=== PATIENT | female | born 1980 | race Caucasian/White ===

== ENCOUNTER 2020-04-24 21:14 | Emergency (ER) | payer MEDICAID, SELFPAY ==
[2020-04-24 21:15] VITALS: BP 96/65; PULSE 64; RESP 19; TEMP 36; O2SAT 98; BMI 26.4
[2020-04-24 21:38] VITALS: BP 95/59; PULSE 54; RESP 19; O2SAT 98
--- NOTE | 2020-04-24 22:06 | CT_ITS ---
STUDY: CT CERVICAL SPINE WITHOUT CONTRAST REASON FOR EXAM: Female, 39 years old. TRAUMA AFTER SEIZURE. hit head against ground RADIATION DOSAGE (If Supplied By Facility): CTDIvol = ( 14.42 ) mGy, DLP = ( 287.14 ) mGycm TECHNIQUE: High resolution transaxial imaging was performed without contrast material. Sagittal and coronal images were reconstructed. Individualized dose optimization techniques were used for this CT. COMPARISON: None FINDINGS: Normal craniovertebral junction. Normal anterior atlantoaxial articulation. Normal odontoid process. Normal cervical lordosis. Normal vertebral bodies and posterior osseous elements. C2-3: Normal endplates. Normal disc height and morphology. Normal central canal and intervertebral neuroforamina. C3-4: Normal endplates. Normal disc height and morphology. Normal central canal and intervertebral neuroforamina. C4-5: Normal endplates. Normal disc height and morphology. Normal central canal and intervertebral neuroforamina. C5-6: Normal endplates. Normal disc height and morphology. Normal central canal and intervertebral neuroforamina. C6-7: Normal endplates. Normal disc height and morphology. Normal central canal and intervertebral neuroforamina. C7-T1: Normal endplates. Normal disc height and morphology. Normal central canal and intervertebral neuroforamina. Normal visualized soft tissue structures. CT/Spine Cervical without Contras IMPRESSION: Normal unenhanced CT examination of the cervical spine. Electronically Signed: Rc Sheppard MD at 22:32 EDT , Service support ,
--- NOTE | 2020-04-24 22:06 | CT_ITS ---
STUDY: CT BRAIN WITHOUT CONTRAST REASON FOR EXAM: Female, 39 years old. TRAUMA AFTER SEIZURE. hit head against ground RADIATION DOSAGE (If Supplied By Facility): CTDIvol = ( 44.99 ) mGy, DLP = ( 796.11 ) mGycm TECHNIQUE: Transaxial CT imaging of the brain was performed without administration of intravenous contrast material. Individualized dose optimization techniques were used for this CT. COMPARISON: Prior study of 05/24/2013 FINDINGS: Normal soft tissue structures. Normal calvarium. Normal size ventricles and extra-axial spaces for the patient''s age. Normal white matter tracts of the cerebral hemispheres. Normal basal ganglia and thalami. Normal brainstem. Normal cerebellum. There is no intracranial hemorrhage. There are no findings of an acute ischemic infarction. Normal visualized paranasal sinuses. CT/Brain/Head without Contrast IMPRESSION: Normal unenhanced CT scan of the brain. Electronically Signed: Rc Sheppard MD at 22:28 EDT , Service support ,
[2020-04-24 22:19] LABS: Absolute Lymphocyte Count 2.41 X10^3/uL (0.83-4.51); Absolute Neutrophil Count 3.8 X10^3/uL (2.0-7.7); Basophil# 0.07 X10^3/uL; Eosinophil# 0.33 X10^3/uL; Eosinophils% 4.6 % (0-5); Hematocrit 38.3 % (37-47); Hemoglobin 12.5 g/dL (12.0-15.0); Lymphocyte # 2.41 X10^3/ul (4.0); Lymphocyte % 33.7 % (19-41); Mean Corp Hgb Conc 32.6 g/dL (32-36); Mean Platelet Vol. 10.3 fl (6.2-12.0); Monocyte# 0.56 X10^3/uL; Monocyte% 7.8 % (0-10); NRBC Flagged by Analyzer 0 % (0-5); Neutrophil # 3.76 X10^3/uL (2.7-7.7); Neutrophil % 52.6 % (47-70); Platelet Count 228 K/mm3 (150-450); RBC Distribution Width CV 14.7 % (11.6-14.6); RBC Distribution Width SD 52.9 fl (35.1-43.9); Red Blood Count 3.91 M/mm3 (4.2-5.4); White Blood Count 7.2 K/mm3 (4.4-11.0)
[2020-04-24 22:22] LABS: Anion Gap 1 (5-15); BUN 10 mg/dL (7-18); BUN/Creat Ratio 12.4 RATIO (10-20); Calcium,Total 8.1 mg/dL (8.5-10.1); Chloride 120 mmol/L (98-107); EST Glomerular Filtration Rate 84 mL/min (>60); Est Glom Filt Rate - Afr Amer 101 mL/min (>60); Glucose 87 mg/dL (74-106); Potassium 3.8 mmol/L (3.5-5.1); Sodium Level 136 mmol/L (136-145)
--- NOTE | 2020-04-24 23:13 | ED.DCSUM_ITS ---
- ER Visit Summary Date of Service: 04/24/20 Chief Complaint: Seizure History of Present Illness: The patient is a 39 F with a history of seizure disorder. She takes Vimpat and Topamax. He has been compliant with her medications. No change in the dosages. No change in her sleep or diet. No drug use. She had a seizure episode this evening and was brought to the ED. There was a recurrent episode for EMS. Currently seizure activity has stopped. She has some head and neck pain but no other complaints. Physical Examination: Afebrile and vital signs unremarkable. Blood pressure 95/59 and heart rate 54. She said this is fairly normal for her. Head and neck atraumatic. Heart regular. Lungs clear. Skin appears normal. Extremities unremarkable. Test Results: CT brain and cervical spine were normal. CBC normal. Chloride 120, CO2 15, anion gap 1. Emergency Department Course and Treatment: Patient had seizure precautions and monitoring. No further seizure activity. After discussion with the patient, we performed imaging and laboratory studies as above. Work-up was unremarkable. She would like to follow-up with her doctor tomorrow. She will call neurology for further care. Seizure precautions . Return for any complications. Treatment Plan: As above Disposition: Discharged Impression: Breakthrough seizure This note was generated with [employer] dictation software. It may contain incorrect words, spelling, and punctuation that were not noted in review of the chart prior to signing ED Disposition - Plan for ED Patient: Referrals: Shalini Varner DO [Primary Care Provider] -
--- NOTE | 2020-04-24 23:15 | ED.DEP ---
ED Disposition - Plan for ED Patient: Instructions: ED Seizure Recurrent Adult Additional Instructions: call your neurologist first thing tomorrow morning
== END 2020-04-24 23:27 | disposition home or self-care (01) ==
LOC: ED 22:45
PROVIDERS: Emergency Provider Emergency Medicine
DX: G40.909 Epilepsy, unspecified, not intractable, without status epilepticus (principal); Z72.0 Tobacco use
CPT/HCPCS: 70450; 72125; 80048; 85025; 99285; A4216

== ENCOUNTER → 2020-05-04 11:48 | Outpatient (CLI) | payer MEDICAID, SELFPAY ==
[2020-04-24 21:15] VITALS: BMI 26.4
[2020-05-04 12:23] LABS: Hematocrit 40.5 % (37-47); Hemoglobin 13.9 g/dL (12.0-15.0); Mean Corp Hgb Conc 34.3 g/dL (32-36); Mean Corpuscular Hgb 31.5 pg (27.0-32.0); Mean Corpuscular Volume 91.8 fL (81-99); Mean Platelet Vol. 10.2 fl (6.2-12.0); Platelet Count 298 K/mm3 (150-450); RBC Distribution Width CV 13.7 % (11.6-14.6); RBC Distribution Width SD 46.1 fl (35.1-43.9); Red Blood Count 4.41 M/mm3 (4.2-5.4); White Blood Count 5.9 K/mm3 (4.4-11.0)
[2020-05-04 12:50] LABS: Vitamin D,25 Hydroxy 41.2 ng/mL
[2020-05-04 12:58] LABS: AST(SGOT) 13 U/L (15-37); Alanine Aminotransfer ALT/SGPT 18 U/L (13-56); Albumin, Serum 3.7 g/dL (3.2-5.0); Alkaline Phosphatase 77 U/L (45-117); Anion Gap 4 (5-15); BUN 5 mg/dL (7-18); BUN/Creat Ratio 6.3 RATIO (10-20); Calcium,Total 8.7 mg/dL (8.5-10.1); Chloride 115 mmol/L (98-107); Creatinine, Serum 0.79 mg/dL (0.55-1.02); EST Glomerular Filtration Rate 86 mL/min (>60); Est Glom Filt Rate - Afr Amer 104 mL/min (>60); Globulin 3.6 g/dL (2.2-4.2); Glucose 86 mg/dL (74-106); Potassium 3.4 mmol/L (3.5-5.1); Protein, Total 7.3 g/dL (6.4-8.2); Sodium Level 141 mmol/L (136-145); Thyroid Stim Hormone (TSH) 1.01 uIU/mL (0.358-3.74)
== END ==
DX: F33.9 Major depressive disorder, recurrent, unspecified (principal); R23.8 Other skin changes
CPT/HCPCS: 36415; 80053; 82306; 84443; 85027

== ENCOUNTER 2020-06-26 18:12 | Emergency (ER) | payer MEDICAID, SELFPAY ==
[2020-06-26 18:13] VITALS: BP 117/68; PULSE 79; RESP 18; TEMP 36.1; O2SAT 99; BMI 25.0
[2020-06-26 18:18] VITALS: BP 117/68; PULSE 79; RESP 18; O2SAT 99
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
--- NOTE | 2020-06-26 19:30 | RAD_ITS ---
STUDY: X-RAY CHEST REASON FOR EXAM: Female, 40 years old. COUGH, SINUS INFECTION, SUICIDAL TECHNIQUE: Single AP portable view of the chest. COMPARISON: None. FINDINGS: The lungs are clear and expanded. There is no demonstrated pleural abnormality. Normal size heart. Normal mediastinum and christina. Normal visualized pulmonary arteries. Normal visualized aortic arch and descending thoracic aorta. Normal visualized thoracic spine. Normal visualized ribs, clavicles, and shoulders. There is no demonstrated abnormality of the visualized soft tissue structures of the upper abdomen. RAD/Chest 1 View (Portable) IMPRESSION: Normal x-ray examination of the chest. Electronically Signed: Nicho Dow MD at 20:13 EDT , Service support ,
[2020-06-26 19:48] LABS: Absolute Lymphocyte Count 2.56 X10^3/uL (0.83-4.51); Absolute Neutrophil Count 5.3 X10^3/uL (2.0-7.7); Basophil# 0.07 X10^3/uL; Basophil% 0.8 % (0-1); Eosinophils% 2.3 % (0-5); Hematocrit 41.6 % (37-47); Hemoglobin 14.5 g/dL (12.0-15.0); Lymphocyte # 2.56 X10^3/ul (4.0); Lymphocyte % 29.7 % (19-41); Mean Corp Hgb Conc 34.9 g/dL (32-36); Mean Corpuscular Hgb 32.2 pg (27.0-32.0); Mean Corpuscular Volume 92.4 fL (81-99); Mean Platelet Vol. 10.1 fl (6.2-12.0); Monocyte# 0.51 X10^3/uL; Monocyte% 5.9 % (0-10); NRBC Flagged by Analyzer 0 % (0-5); Neutrophil # 5.26 X10^3/uL (2.7-7.7); Neutrophil % 61.1 % (47-70); Platelet Count 371 K/mm3 (150-450); RBC Distribution Width CV 14.1 % (11.6-14.6); RBC Distribution Width SD 47.8 fl (35.1-43.9); White Blood Count 8.6 K/mm3 (4.4-11.0)
[2020-06-26 19:53] LABS: AST(SGOT) 9 U/L (15-37); Alanine Aminotransfer ALT/SGPT 14 U/L (13-56); Albumin, Serum 3.7 g/dL (3.2-5.0); Alkaline Phosphatase 93 U/L (45-117); Anion Gap 8 (5-15); BUN 10 mg/dL (7-18); BUN/Creat Ratio 12.8 RATIO (10-20); Calcium,Total 8.9 mg/dL (8.5-10.1); Chloride 113 mmol/L (98-107); Creatinine, Serum 0.78 mg/dL (0.55-1.02); EST Glomerular Filtration Rate 86 mL/min (>60); Est Glom Filt Rate - Afr Amer 104 mL/min (>60); Estimated Creatinine Clearance 88.85 ml/min; Globulin 3.8 g/dL (2.2-4.2); Glucose 100 mg/dL (74-106); Protein, Total 7.5 g/dL (6.4-8.2); Sodium Level 145 mmol/L (136-145)
[2020-06-26 20:12] LABS: Internal QC Validated? YES +Cl - CLEAR BKGD; Pregnancy, Serum, hCG Quali. NEGATIVE Negative
[2020-06-26 20:22] LABS: Amphetamine Urine VISTA NEGATIVE (<1000 ng/mL); Barbiturate Urine VISTA NEGATIVE (< 200 ng/mL); Benzodiazepine Urine VISTA NEGATIVE (< 200 ng/mL); Cocaine Urine VISTA NEGATIVE (< 300 ng/mL); Ecstacy Urine VISTA NEGATIVE (< 500 ng/mL); Methadone Urine VISTA NEGATIVE (< 300 ng/mL); PCP Urine VISTA NEGATIVE (< 25 ng/mL); THC Urine VISTA NEGATIVE (< 50 ng/mL); Vista UDS pH Range 6
--- NOTE | 2020-06-26 20:39 | ED.RN ---
crisis called and aware of patient at this time
[2020-06-26] MEDS: Citalopram 10 MG Tablet 20 MG PO (22:24)
[2020-06-26] MEDS: Topiramate 200 MG Tablet 400 MG PO (22:25)
[2020-06-26] MEDS: Lacosamide 100 MG Tablet 200 MG PO (22:25)
[2020-06-26 22:26] VITALS: PULSE 80; RESP 16
[2020-06-26] MEDS: Doxycycline 100 MG CAPSULE PO (22:26)
[2020-06-26 23:22] VITALS: RESP 18
[2020-06-27 00:25] VITALS: RESP 18
[2020-06-27 01:55] VITALS: RESP 16
[2020-06-27 03:17] VITALS: BP 120/68; PULSE 80; RESP 16; O2SAT 99
== END 2020-06-27 03:37 ==
PROVIDERS: Emergency Provider Emergency Medicine
DX: R45.851 Suicidal ideations (principal); F17.200 Nicotine dependence, unspecified, uncomplicated
CPT/HCPCS: 71045; 80053; 80307; 80320; 84703; 85025; 87635; 99285; G0480; U0002

== ENCOUNTER 2020-12-06 15:04 | Emergency (ER) | payer MEDICAID, SELFPAY ==
[2020-12-06 15:06] VITALS: BP 109/63; PULSE 94; RESP 20; TEMP 36.6; O2SAT 97; BMI 26.6
[2020-12-06] MEDS: MethylPREDNISolone 125 MG/2 ML Vial IV (15:20)
[2020-12-06] MEDS: 0.9% Normal Saline 1,000 ML 999 ML IV (15:22)
[2020-12-06] MEDS: Famotidine 200 MG/20 ML MDV 20 MG in 0.9% Normal Saline (Pres. free 8 ML 300 MG IV (15:23)
--- NOTE | 2020-12-06 16:23 | ED.DCSUM_ITS ---
- ER Visit Summary Date of Service: 12/06/20 Chief Complaint: Allergic reaction History of Present Illness: The patient is a 40 F who sees Shalini Varner. 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 220 this afternoon she was stung back of her left knee. She reports that shortly thereafter she became short of breath was itching and coughing. She gave herself an EpiPen without relief. Her mother came over gave her a second EpiPen she did get relief from that. On the way to the emergency department patient was given Benadryl by EMS and she reports her symptoms have resolved. Physical Examination: Vitals: Stable. Afebrile. General: Well-nourished and well-developed. Head: Normocephalic atraumatic. HEENT: No angioedema lips, tongue, or pharynx. Neck: Supple, no lymphadenopathy. No JVD. Nontender. Cardiovascular: Regular rate and rhythm. No murmurs. Respiratory: No respiratory distress. Clear to auscultation bilaterally. Abdominal: Soft, nontender, nondistended, normal bowel sounds. No guarding, rebound, or peritoneal signs. Back: Nontender. Extremities: Nontender, no edema. Skin: Normal color, no rash. Neurologic: Alert and oriented ?3. Cranial nerves II through XII are intact. Normal strength and sensation. Psych: Normal affect. Emergency Department Course and Treatment: Patient had an IV upon arrival. She did already see [place]. She was given Pepcid and Solu-Medrol IV. She is been observed over the course of an hour and feels back to her baseline. She would like to go home. Treatment Plan: Patient will be discharged with prescriptions for Pepcid, Zyrtec, prednisone, and EpiPen's. Instructed to follow-up with her primary care physician in 1 to 2 days if not improving. Return to the emergency department for any worsening symptoms. Disposition: To home in improved and stable condition. Impression: 1. Allergic reaction to bee sting. This note was generated with [employer] software. It may contain incorrect words, spelling, and punctuation that were not noted in review of the chart prior to signing ED Disposition - Plan for ED Patient: Instructions: ED BEE STING General Allergic Rxn Prescriptions: Epi Pen [Epi-Pen] 0.3 mg IM X1 PRN #2 syringe PRN Reason: Anaphylaxis Famotidine [Pepcid] 20 mg PO BID #28 tablet Prednisone 10 mg PO UD #33 tablet Cetirizine HCl [Zyrtec] 10 mg PO DAILY #14 capsule Referrals: Shalini Varner DO [Primary Care Provider] - 1-2 Days if not improving
[2020-12-06 16:40] VITALS: BP 96/58; PULSE 80; RESP 21; O2SAT 99
[2020-12-06 16:41] VITALS: BP 96/58; PULSE 80; RESP 21; O2SAT 99
== END 2020-12-06 16:41 | disposition home or self-care (01) ==
PROVIDERS: Emergency Provider Emergency Medicine
DX: T63.441A Toxic effect of venom of bees, accidental (unintentional), initial encounter (principal); F17.210 Nicotine dependence, cigarettes, uncomplicated; G40.909 Epilepsy, unspecified, not intractable, without status epilepticus
CPT/HCPCS: 96361; 96374; 99285; J3490

== ENCOUNTER 2021-01-08 21:07 | Emergency (ER) | payer MEDICAID, SELFPAY ==
[2021-01-08 21:08] VITALS: BP 137/66; PULSE 74; RESP 15; TEMP 36.4; O2SAT 99; BMI 25.0
--- NOTE | 2021-01-08 21:23 | EKG12_ITS ---
Test Reason : CP Blood Pressure : / mmHG Vent. Rate : 071 BPM Atrial Rate : 071 BPM P-R Int : 198 ms QRS Dur : 086 ms QT Int : 396 ms P-R-T Axes : 074 -16 057 degrees QTc Int : 430 ms Normal sinus rhythm Septal infarct , age undetermined Abnormal ECG Confirmed by MEHRDAD COTTO, FELIBERTO ([id number]), graphics editor MAGGY RAMIREZ ([id number]) on 01/10/2021 8:25:22 AM Referred By: FERNANDO Confirmed By:FELIBERTO CRONIN MD
[2021-01-08 21:26] VITALS: O2SAT 100
--- NOTE | 2021-01-08 21:28 | ED.VIS.CHEST ---
HPI History of Present Illness Chief Complaint: Chest Pain Informant: patient Onset/Context/Timing Onset: Yesterday Activity at onset: sudden Timing: Continuous Quality: Positive for Sharp Location: Substernal, Right Parasternal, Left Parasternal, Right Chest and Left Chest Current Severity: Mild Maximum Severity: Mild Worsened By: Nothing Relieved By: Nothing Associated Symptoms: Positive for Dyspnea; Negative for Nausea, Vomiting, Diaphoresis and Cough Narrative Narrative: 40-year-old female started having chest pain yesterday morning. It has been constant. Nothing particular makes it better or worse. She has mild shortness of breath. No history of DVT or PE. She is not on control pills. She has had no recent travel surgery or immobilization. She denies any calf pain. She denies any hemoptysis. She has had no exertional symptoms and has no cardiac history. She denies any fever, chills or cough. Prior Similar Symptoms: No Recent Illness/Hospitalization: No CVD Risk Factors: Negative for Hypertension, Diabetes, Hypercholesterolemia and Family History 1' </=55 PE Risk Factors: Negative for Recent Immobilization, Prior DVT or PE and Cancer TAD Risk Factors: Negative for Marfan's Syndrome, Hypertension and Family History [facility] Medical History Depression Seizure Home Medications topiramate 200 mg PO DAILY 11/10/16 [History Last Taken 11/10/16] citalopram 20 mg PO QHS 04/24/20 [History Last Taken Unknown] lacosamide 200 mg PO BID 04/24/20 [History Last Taken Unknown] topiramate 400 mg PO QHS 04/24/20 [History Last Taken Unknown] cetirizine 10 mg PO DAILY #14 capsule 12/06/20 [Rx Last Taken Unknown] epinephrine 0.3 mg IM X1 PRN #2 syringe 12/06/20 [Rx Last Taken Unknown] famotidine 20 mg PO BID #28 tab 12/06/20 [Rx Last Taken Unknown] prednisone 10 mg PO UD #33 tablet 12/06/20 [Rx Last Taken Unknown] Allergy/AdvReac Type Severity Reaction Status Date / Time clarithromycin [From Biaxin] Allergy Hives Verified 12/06/20 15:10 Penicillins Allergy Hives Verified 12/06/20 15:10 venom-honey bee Allergy Hives Verified 12/06/20 15:10 [bee venom (honey bee)] Social History Smoking Status: Current every day smoker ROS ROS ED ROS Narrative She denies any recent illness. Review of Systems ROS Unobtainable: Denies due to encephalopathy Constitutional Constitutional ED: Denies fever(s) Eyes Eyes: Reports none ENT ENT ED: Reports sore throat Cardiovascular Cardiovascular: Reports as per HPI and chest pain; Denies palpitations or racing heartbeat Respiratory/Chest Respiratory/Chest: Reports dyspnea; Denies cough, dyspnea on exertion or sputum Gastrointestinal Gastrointestinal: Denies abdominal pain, diarrhea, melena, nausea or vomiting Genitourinary Genitourinary ED: Denies dysuria or hematuria Musculoskeletal Musculoskeletal: Denies arthralgias or myalgias Integumentary Denies abscess or rash Neurologic Neurologic: Denies headache(s) Psychiatric Psychiatric: Denies depression Endocrine Endocrinology: Denies polyuria Hematologic/Lymphatic Hematologic/Lymphatic: Denies easy bruising Allergic/Immunologic Allergic/Immunologic ED: Denies urticaria EXAM Physical Exam Narrative Exam Narrative: Middle-aged female no acute distress. Vital signs stable afebrile. Pulse ox 99 to 100% no hypoxia. HEENT exam normal. Neck nontender. Lungs clear to auscultation bilaterally. Heart regular rhythm no murmur. Chest wall mildly reproducibly tender. No ecchymosis or bruising. No subcu air crepitance. Abdomen soft nontender normal bowel sounds no peritoneal signs. Extremities moves all 4. Calves are nontender without edema or cords. Radial pulses are equal and symmetrical. Neurologically she is awake alert with no focal motor deficits. Const Vital Signs: 01/08/21 21:08 01/08/21 21:18 01/08/21 21:26 Temperature 97.6 F L Temperature Source Temporal Pulse Rate 74 Respiratory Rate 15 Respiratory Effort Normal Blood Pressure 137/66 H Blood Pressure Mean 89 Pulse Ox 99 100 Oxygen Delivery Method Room Air Room Air Positive well nourished and well developed General Appearance ED: well developed HEENT normocephalic and atraumatic Eyes PERRL and EOMs intact bilaterally Neck no lymphadenopathy, supple and no JVD General: Negative for tenderness Chest Wall inspection of chest normal Chest: tenderness Resp normal respiratory effort and clear to auscultation bilaterally Effort and Inspection: respiratory distress Cardio regular rate and regular rhythm GI normal to inspection, nondistended, normoactive bowel sounds, soft to palpation, non-tender, non-distended and no masses Back/Spine no CVA tenderness Extremity normal to inspection General Extremety ED: Negative for edema, pulses abnormal or tenderness General Extremity: Negative for edema or pulses abnormal Neuro oriented x3 and CN's II-XII intact bilaterally Sensorium / Orientation: awake, alert, oriented to person, oriented to place and oriented to time Motor Exam: strength 5/5 throughout Psych mental status grossly normal Skin no rashes or lesions noted Heart Score History: Slightly/Non-Suspicious ECG: Normal Age: </= 45 years Risk Factors: No Risk Factors Troponin: </= Normal Limit Score: 0 MDM MDM MDM Narrative Medical decision making narrative: 40-year-old female with atypical slightly reproducible chest pain which may be musculoskeletal. She has no risk factors for DVT or PE. She will be evaluated both for cardiac chest pain versus PE versus other etiologies. Her initial EKG is unremarkable. Repeat exam patient is doing well at 23:09 PM. Lab Data Labs: Laboratory Results - last 24 hr 01/08/21 01/08/21 01/08/21 21:20 21:20 21:20 WBC 7.2 RBC 4.40 Hgb 14.0 Hct 41.2 MCV 93.6 MCH 31.8 MCHC 34.0 RDW Std Deviation 46.5 H RDW Coeff of Bob 13.4 Plt Count 298 MPV 9.9 Immature Gran % (Auto) 0.100 Neut % (Auto) 41.7 L Lymph % (Auto) 42.9 H [place] % (Auto) 8.4 Eos % (Auto) 5.6 H Baso % (Auto) 1.3 H Absolute Neuts (auto) 3.0 Absolute Lymphs (auto) 3.07 Nucleated RBC % 0 D-Dimer Quant (PE/DVT) <= 0.27 Sodium 141 Potassium 3.0 L Chloride 112 H Carbon Dioxide 25.0 Anion Gap 4 L BUN 9 Creatinine 0.85 Estim Creat Clear Calc 84.70 Est GFR (MDRD) Af Amer 95 Est GFR (MDRD) Non-Af 78 BUN/Creatinine Ratio 10.6 Glucose 84 Calcium 8.5 Troponin I < 0.015 CBC unremarkable white count of 7 hemoglobin 14. D-dimer negative. Chemistries unremarkable potassium slightly low at 3.0. Troponin normal. Chest x-ray portable 1 view read both myself and the radiologist shows no acute abnormality. EKG shows normal sinus rhythm rate of 71 with no acute signs of NV nor ischemia nor any significant changes from prior EKG from 2013. Patient I discussed all of her test results. She is comfortable being discharged home. She will do outpatient follow-up with her primary care physician. Motrin for pain. Radiography Chest X-Ray - ED: 1 View, Read by ED Physician, Read by Radiologist, Normal, Heart, Lungs, Mediastinum, Bony Structures, No Acute Disease, Cardiomegaly and No Infiltrates Diagnostic Testing: Radiology Impression Chest X-Ray 01/08/21 21:30 IMPRESSION: No acute radiographic abnormalities. Electronically Signed: Glynn Hurt MD at 21:56 EDT Tel , Service support , EKG Initial EKG: Attestation: I personally reviewed and interpreted this EKG as follows: Interpretation: Sinus Rhythm and No Acute Injury Pattern Comments: Sinus rhythm rate of 71 with no acute signs of NV or ischemia no change from prior. Prior EKG tracings: available for review Prior: Unchanged Discharge Plan Triage Chief Complaint: Chest Pain ED Provider: Galdino Kamara Dx/Rx/DC Orders Clinical Impression: Chest pain Instructions: ED Chest Wall Pain, Costochondritis Prescriptions: No Action topiramate 200 MG tablet 200 mg PO DAILY RF: 0 topiramate 200 MG tablet 400 mg PO QHS RF: 0 lacosamide 200 MG tablet 200 mg PO BID RF: 0 citalopram 20 MG tablet 20 mg PO QHS RF: 0 prednisone 10 MG tablet 10 mg PO UD Qty: 33 RF: 0 famotidine 20 MG tablet 20 mg PO BID Qty: 28 RF: 0 cetirizine 10 MG capsule 10 mg PO DAILY Qty: 14 RF: 0 epinephrine 0.3 MG syringe 0.3 mg IM X1 PRN (Reason: Anaphylaxis) Qty: 2 RF: 0 Primary Care Provider: Shalini Varner Referrals: Shalini Varner, [Primary Care Provider] - 3-5 Days if not improving Activity Restrictions/Additional Instructions: Motrin to decrease pain inflammation of your chest wall. Follow-up if not improving. Return if you are feeling worse. Your chest x-ray, EKG and labs today were unremarkable. This appears to be chest wall pain. Disposition Disposition: Home, self care
--- NOTE | 2021-01-08 21:30 | RAD_ITS ---
INDICATION: chest pain EXAMINATION/TECHNIQUE: X-RAY - XR Chest 1 View COMPARISON: 06/26/2020. FINDINGS: The lungs are clear. The cardiomediastinal silhouette is unremarkable. No pleural effusion or pneumothorax. No acute osseous abnormalities. RAD/Chest 1 View (Portable) IMPRESSION: No acute radiographic abnormalities. Electronically Signed: Glynn Hurt MD at 21:56 EDT Tel , Service support ,
[2021-01-08 21:32] LABS: Absolute Lymphocyte Count 3.07 X10^3/uL (0.83-4.51); Basophil# 0.09 X10^3/uL; Basophil% 1.3 % (0-1); Eosinophils% 5.6 % (0-5); Hematocrit 41.2 % (37-47); Lymphocyte # 3.07 X10^3/ul (0.83-4.51); Lymphocyte % 42.9 % (19-41); Mean Corpuscular Hgb 31.8 pg (27.0-32.0); Mean Corpuscular Volume 93.6 fL (81-99); Mean Platelet Vol. 9.9 fl (6.2-12.0); Monocyte% 8.4 % (0-10); NRBC Flagged by Analyzer 0 % (0-5); Neutrophil # 2.99 X10^3/uL (2.7-7.7); Neutrophil % 41.7 % (47-70); Platelet Count 298 K/mm3 (150-450); RBC Distribution Width CV 13.4 % (11.6-14.6); RBC Distribution Width SD 46.5 fl (35.1-43.9); White Blood Count 7.2 K/mm3 (4.4-11.0)
[2021-01-08] MEDS: Aspirin 81 MG TAB.CHEW 324 MG PO (21:39)
[2021-01-08 21:52] LABS: D-Dimer Quantitative (DVT/PE) <= 0.27 FEU/ug/m (0.27-0.49)
[2021-01-08 21:59] LABS: Anion Gap 4 (5-15); BUN 9 mg/dL (7-18); BUN/Creat Ratio 10.6 RATIO (10-20); Calcium,Total 8.5 mg/dL (8.5-10.1); Chloride 112 mmol/L (98-107); Creatinine, Serum 0.85 mg/dL (0.55-1.02); EST Glomerular Filtration Rate 78 mL/min (>60); Est Glom Filt Rate - Afr Amer 95 mL/min (>60); Glucose 84 mg/dL (74-106); Sodium Level 141 mmol/L (136-145)
[2021-01-08 23:26] VITALS: BP 118/78; PULSE 52; RESP 14; O2SAT 98
== END 2021-01-08 23:26 | disposition home or self-care (01) ==
PROVIDERS: Emergency Provider Emergency Medicine
DX: R07.9 Chest pain, unspecified (principal); F17.200 Nicotine dependence, unspecified, uncomplicated; Z79.899 Other long term (current) drug therapy
CPT/HCPCS: 71045; 80048; 84484; 85025; 85379; 93005; 99285; A4216

== ENCOUNTER 2021-08-29 14:59 | Emergency (ER) | payer MEDICAID, SELFPAY ==
[2021-08-29 15:00] VITALS: BP 112/70; PULSE 92; RESP 18; TEMP 36.6; O2SAT 99; BMI 22.7
--- NOTE | 2021-08-29 15:04 | RAD_ITS ---
INDICATION: sob EXAMINATION/TECHNIQUE: X-RAY - XR Chest 1 View COMPARISON: 01/08/2021. FINDINGS: LINES/DEVICES: None. LUNGS: No consolidation, edema or effusion. No pneumothorax. MEDIASTINUM AND CARDIOVASCULAR STRUCTURES: Cardiac silhouette not enlarged. Central airways and mediastinal contour are unremarkable. BONES AND SOFT TISSUES: Unremarkable. RAD/Chest 1 View (Portable) IMPRESSION: No radiographic evidence of acute cardiopulmonary disease. Electronically Signed: Sawyer Partida MD at 15:49 EST Tel , Service support ,
[2021-08-29 15:26] LABS: Absolute Lymphocyte Count 2.72 X10^3/uL (0.83-4.51); Absolute Neutrophil Count 5.1 X10^3/uL (2.0-7.7); Basophil# 0.07 X10^3/uL; Basophil% 0.8 % (0-1); Eosinophil# 0.28 X10^3/uL; Eosinophils% 3.2 % (0-5); Hematocrit 44.2 % (37-47); Hemoglobin 15.2 g/dL (12.0-15.0); Lymphocyte # 2.72 X10^3/ul (0.83-4.51); Lymphocyte % 30.9 % (19-41); Mean Corp Hgb Conc 34.4 g/dL (32-36); Mean Corpuscular Hgb 31.7 pg (27.0-32.0); Mean Corpuscular Volume 92.3 fL (81-99); Mean Platelet Vol. 9.8 fl (6.2-12.0); Monocyte% 6.8 % (0-10); NRBC Flagged by Analyzer 0 % (0-5); Neutrophil % 58.1 % (47-70); Platelet Count 262 K/mm3 (150-450); RBC Distribution Width CV 13.9 % (11.6-14.6); RBC Distribution Width SD 47.6 fl (35.1-43.9); Red Blood Count 4.79 M/mm3 (4.2-5.4); White Blood Count 8.8 K/mm3 (4.4-11.0)
[2021-08-29 15:48] LABS: Anion Gap 4 (5-15); BUN 4 mg/dL (7-18); BUN/Creat Ratio 5.1 RATIO (10-20); Chloride 114 mmol/L (98-107); Creatinine, Serum 0.78 mg/dL (0.55-1.02); EST Glomerular Filtration Rate 86 mL/min (>60); Est Glom Filt Rate - Afr Amer 104 mL/min (>60); Estimated Creatinine Clearance 91.37 ml/min; Glucose 84 mg/dL (74-106); Potassium 3.9 mmol/L (3.5-5.1); Sodium Level 142 mmol/L (136-145)
[2021-08-29 16:35] VITALS: O2SAT 98
--- NOTE | 2021-08-29 16:58 | EDS_ITS ---
HPI History of Present Illness Chief Complaint: General Illness Detail of Chief Complaint: Dyspnea, fatigue, and chest pain Informant: patient Narrative Narrative: Patient presents to the emergency department with multiple complaints today. She complains of shortness of breath as well as fatigue and chest discomfort. Patient states that she started with a cough and cold symptoms 5 days ago. Patient states that she was at her son's house who has since tested positive for Covid. Patient started developing some retrosternal chest discomfort today and feeling more short of breath today. She denies recent travel or surgery. Patient has not been vaccinated against COVID-19. No history of PE or DVT. Prior similar symptoms: Yes PFSH PFS Medical History Depression Seizure Home Medications topiramate 200 mg PO DAILY 11/10/16 [History Last Taken 11/10/16] citalopram 20 mg PO QHS 04/24/20 [History Last Taken Unknown] lacosamide 200 mg PO BID 04/24/20 [History Last Taken Unknown] topiramate 400 mg PO QHS 04/24/20 [History Last Taken Unknown] cetirizine 10 mg PO DAILY #14 capsule 12/06/20 [Rx Last Taken Unknown] epinephrine 0.3 mg IM X1 PRN #2 syringe 12/06/20 [Rx Last Taken Unknown] famotidine 20 mg PO BID #28 tab 12/06/20 [Rx Last Taken Unknown] prednisone 10 mg PO UD #33 tablet 12/06/20 [Rx Last Taken Unknown] prednisone 20 mg PO BID #10 tab 08/29/21 [Rx Last Taken Unknown] Allergy/AdvReac Type Severity Reaction Status Date / Time clarithromycin [From Biaxin] Allergy Hives Verified 08/29/21 15:03 Penicillins Allergy Hives Verified 08/29/21 15:03 venom-honey bee Allergy Hives Verified 08/29/21 15:03 [bee venom (honey bee)] Social History Smoking Status: Current every day smoker tobacco type: cigarettes ROS ROS ED Constitutional Constitutional ED: Reports systems reviewed and no addt'l complaints, except as documented and fever(s); Denies body ache(s), change in weight or chills Eyes Eyes: Denies acute decrease in peripheral vision, change in vision, double vision or loss of vision ENT ENT ED: Reports none; Denies ear pain, lip swelling, loss taste/smell, neck pain, otalgia or sore throat Cardiovascular Cardiovascular: Reports none and chest pain; Denies abdominal pain, chest pain with activity, leg edema, lightheadedness, palpitations, rapid heart rate or syncope Respiratory/Chest Respiratory/Chest: Reports none, cough and dyspnea; Denies change in mental status, dry cough, hemoptysis, shortness of breath at rest or shortness of breath with exertion Gastrointestinal Gastrointestinal: Reports none; Denies abdominal pain, change in stool character, diarrhea, hematemesis, hematochezia, melena, rectal bleeding or vomiting Genitourinary Genitourinary ED: Reports none; Denies abdominal discomfort, anuria, dysuria, genital pain or polyuria Musculoskeletal Musculoskeletal: Reports none and myalgias; Denies arthralgias, back pain, difficulty walking, extremity pain or muscle weakness Integumentary Reports none; Denies abscess or rash Neurologic Neurologic: Reports none and headache(s); Denies abnormal gait, confusion, focal weakness, frequent falls, loss of vision, numbness, paresthesias, radicular pain, vertigo or weakness Psychiatric Psychiatric: Reports systems reviewed and no addt'l complaints, except as documented and none; Denies behavioral changes, confusion, difficulty concentrating, hallucinations, suicidal ideation, tactile hallucinations or visual hallucinations Endocrine Endocrinology: Denies none, cold intolerance, excessive sweating, fatigue or heat intolerance Hematologic/Lymphatic Hematologic/Lymphatic: Reports none; Denies anemia, easy bleeding or easy bruising Allergic/Immunologic Allergic/Immunologic ED: Denies as per HPI, none, lip swelling, mouth swelling, throat swelling, tongue swelling or hives EXAM Physical Exam Const Vital Signs: 08/29/21 15:00 08/29/21 16:35 08/29/21 16:39 Temperature 97.8 F Temperature Source Temporal Pulse Rate 92 Respiratory Rate 18 Respiratory Pattern Normal Blood Pressure 112/70 Blood Pressure Mean 84 Pulse Ox 99 98 Oxygen Delivery Method Room Air Room Air 08/29/21 17:10 08/29/21 18:00 Temperature Temperature Source Pulse Rate 62 66 Respiratory Rate 24 H 18 Respiratory Pattern Tachypnea Blood Pressure Blood Pressure Mean Pulse Ox 100 Oxygen Delivery Method Room Air Positive well nourished and well developed General Appearance ED: well developed and NAD HEENT Reports TM's clear and moist mucous membranes normocephalic and atraumatic; Negative for trauma or tenderness Tympanic Membrane ED: Yes TM's clear Eyes PERRL and EOMs intact bilaterally General Eye ED: Negative for pale conjunctiva or scleral icterus Neck no lymphadenopathy, supple and no JVD General: Negative for tenderness Chest Wall inspection of chest normal and palpation of chest normal Chest: Negative for tenderness Resp normal respiratory effort and clear to auscultation bilaterally Effort and Inspection: Negative for respiratory distress or pain with movement Auscultation: Negative for rhonchi, wheezes or diminished lung sounds Cardio regular rate, regular rhythm, S1 normal heart sound, S2 normal heart sound and no murmurs Peripheral Pulses: pulses 2+ throughout GI normal to inspection, nondistended, normoactive bowel sounds, soft to palpation, non-tender, non-distended and no masses Back/Spine no CVA tenderness and no thoracic nor lumbar tenderness Extremity normal to inspection General Extremety ED: Negative for edema General Extremity: Negative for edema Neuro oriented x3, CN's II-XII intact bilaterally, no sensory deficits noted and gait normal Sensorium / Orientation: awake, alert, oriented to person, oriented to place and oriented to time Motor Exam: strength 5/5 throughout and strength abnormal Psych mental status grossly normal Skin no rashes or lesions noted and no wounds MDM MDM MDM Narrative Medical decision making narrative: Patient received a DuoNeb aerosol for some wheezing and she did feel improved afterwards. Her lab work-up is unremarkable. I do not feel she is having acute coronary syndrome. I suspect likely viral URI with reactive airway disease. Patient will be dispensed an albuterol MDI and will be started on prednisone. Patient to follow-up with her primary care physician within next 3 to 5 days. She is advised to return if increasing shortness of breath or condition should worsen anyway. Lab Data Attestation: I reviewed the patient's lab results. Labs: Laboratory Results - last 24 hr 08/29/21 08/29/21 08/29/21 15:13 15:13 15:13 WBC 8.8 RBC 4.79 Hgb 15.2 H Hct 44.2 MCV 92.3 MCH 31.7 MCHC 34.4 RDW Std Deviation 47.6 H RDW Coeff of Bob 13.9 Plt Count 262 MPV 9.8 Immature Gran % (Auto) 0.200 Neut % (Auto) 58.1 Lymph % (Auto) 30.9 [place] % (Auto) 6.8 Eos % (Auto) 3.2 Baso % (Auto) 0.8 Absolute Neuts (auto) 5.1 Absolute Lymphs (auto) 2.72 Nucleated RBC % 0 D-Dimer Quant (PE/DVT) 0.28 Sodium 142 Potassium 3.9 Chloride 114 H Carbon Dioxide 24.0 Anion Gap 4 L BUN 4 L Creatinine 0.78 Estim Creat Clear Calc 91.37 Est GFR (MDRD) Af Amer 104 Est GFR (MDRD) Non-Af 86 BUN/Creatinine Ratio 5.1 L Glucose 84 Calcium 9.0 Troponin I High Sens 08/29/21 15:13 WBC RBC Hgb Hct MCV MCH MCHC RDW Std Deviation RDW Coeff of Bob Plt Count MPV Immature Gran % (Auto) Neut % (Auto) Lymph % (Auto) [place] % (Auto) Eos % (Auto) Baso % (Auto) Absolute Neuts (auto) Absolute Lymphs (auto) Nucleated RBC % D-Dimer Quant (PE/DVT) Sodium Potassium Chloride Carbon Dioxide Anion Gap BUN Creatinine Estim Creat Clear Calc Est GFR (MDRD) Af Amer Est GFR (MDRD) Non-Af BUN/Creatinine Ratio Glucose Calcium Troponin I High Sens 4 Radiography Chest X-Ray - ED: 1 View Diagnostic Testing: Clinical Impression(s) from Imaging Studies Chest X-Ray 08/29/21 15:04 IMPRESSION: No radiographic evidence of acute cardiopulmonary disease. Electronically Signed: Sawyer Partida MD at 15:49 EST Tel , Service support , 1 view obtained interpreted by myself as no acute disease process. Radiology in agreement. EKG Initial EKG: Attestation: I personally reviewed and interpreted this EKG as follows: Comments: Sinus rhythm with a ventricular rate of 71 bpm with no acute ST segment changes Discharge Plan Triage Chief Complaint: General Illness ED Provider: Vaishnavi Molina Dx/Rx/DC Orders Clinical Impression: Viral URI, Chest pain Instructions: ED Chest Pain, Uncertain Cause, ED URI, Viral, No Abx (Adult) Prescriptions: New prednisone 20 mg tablet 20 mg PO BID Qty: 10 RF: 0 No Action topiramate 200 MG tablet 200 mg PO DAILY RF: 0 topiramate 200 MG tablet 400 mg PO QHS RF: 0 lacosamide 200 MG tablet 200 mg PO BID RF: 0 citalopram 20 MG tablet 20 mg PO QHS RF: 0 prednisone 10 MG tablet 10 mg PO UD Qty: 33 RF: 0 famotidine 20 MG tablet 20 mg PO BID Qty: 28 RF: 0 cetirizine 10 MG capsule 10 mg PO DAILY Qty: 14 RF: 0 epinephrine 0.3 MG syringe 0.3 mg IM X1 PRN (Reason: Anaphylaxis) Qty: 2 RF: 0 Primary Care Provider: Shalini Varner Referrals: Shalini Varner DO [Primary Care Provider] - 3-5 Days Disposition Disposition: Home, Self Care
--- NOTE | 2021-08-29 17:00 | EKG12_ITS ---
Test Reason : SOBB Blood Pressure : / mmHG Vent. Rate : 071 BPM Atrial Rate : 071 BPM P-R Int : 194 ms QRS Dur : 086 ms QT Int : 386 ms P-R-T Axes : 079 -26 064 degrees QTc Int : 419 ms Normal sinus rhythm Low voltage QRS Borderline ECG Confirmed by MIGUEL COTTO, VIVEK ([id number]), editor newspaper GENARO DUNCAN ([id number]) on 09/04/2021 10:24:59 AM Referred By: RIKA Confirmed By:VIVEK RIVERA MD
[2021-08-29] MEDS: Ipratropium/Albuterol Sulfate 3 ML AMPUL.NEB INHALATION (17:09)
[2021-08-29 17:10] VITALS: PULSE 62; RESP 24
[2021-08-29 17:16] LABS: Troponin-I HS 4 pg/mL (3.0-54.0)
[2021-08-29 17:18] LABS: D-Dimer Quantitative (DVT/PE) 0.28 FEU/ug/m (0.27-0.49)
[2021-08-29 18:00] VITALS: PULSE 66; RESP 18; O2SAT 100
[2021-08-29 19:08] VITALS: PULSE 81; RESP 20; O2SAT 97
--- NOTE | 2021-08-29 19:08 | ED.RN ---
THIS NURSE REVIEWED D/C INSTRUCTIONS WITH PT. PT VERBALIZED UNDERSTANDING OF INSTRUCTIONS. IV D/C. IV CATHETER INTACT. PT TOLERATED WELL. PT DENIES FURTHER NEEDS OR QUESTIONS AT THIS TIME. PT AMBULATES FROM ROOM ON OWN WITHOUT ASSISTANCE FROM STAFF
== END 2021-08-29 19:09 | disposition home or self-care (01) ==
PROVIDERS: Emergency Provider Emergency Medicine
DX: J06.9 Acute upper respiratory infection, unspecified (principal); R07.9 Chest pain, unspecified; F17.210 Nicotine dependence, cigarettes, uncomplicated; Z79.52 Long term (current) use of systemic steroids; Z20.822 Contact with and (suspected) exposure to COVID-19; Z28.3 Underimmunization status
CPT/HCPCS: 71045; 80048; 84484; 85025; 85379; 87426; 87804; 93005; 94760; 99282; A4216

== ENCOUNTER 2021-09-10 17:45 | Emergency (ER) | payer MEDICAID, SELFPAY ==
[2021-09-10 17:45] VITALS: BP 121/69; PULSE 105; RESP 18; TEMP 35.8; O2SAT 100; BMI 23.3
[2021-09-10 19:46] VITALS: BP 91/66; PULSE 74; RESP 16; O2SAT 97
[2021-09-10 19:49] VITALS: BP 91/66; PULSE 67; RESP 16; TEMP 36.6; O2SAT 97
--- NOTE | 2021-09-10 20:06 | ED.VIS.FEGU ---
HPI HPI - Female History of Present Illness Chief Complaint: Vag Bleeding Narrative Narrative: Patient who had a hysterectomy 8 years ago presents with vaginal bleeding that happened this afternoon. She states has been having urinary frequency and at this afternoon when she went to work, she urinated and noticed a small clot in the toilet and a small clot on the paper. She denies any pelvic pain. She does not take blood thinners. She denies any fevers or chills. No nausea or vomiting, no other symptoms. She was concerned because as she has had a hysterectomy, she has not had any vaginal bleeding since then. [facility] Medical History Depression Seizure Home Medications topiramate 200 mg PO DAILY 11/10/16 [History Last Taken 11/10/16] lacosamide [Vimpat] 200 mg PO BID 04/24/20 [History Last Taken Unknown] topiramate 400 mg PO QHS 04/24/20 [History Last Taken Unknown] epinephrine 0.3 mg IM X1 PRN #2 syringe 12/06/20 [Rx Last Taken Unknown] sulfamethoxazole-trimethoprim [Bactrim DS] 1 tab PO BID #14 tab 09/10/21 [Rx Last Taken Unknown] Allergy/AdvReac Type Severity Reaction Status Date / Time clarithromycin [From Biaxin] Allergy Hives Verified 09/10/21 17:47 Penicillins Allergy Hives Verified 09/10/21 17:47 venom-honey bee Allergy Hives Verified 09/10/21 17:47 [bee venom (honey bee)] Social History Smoking Status: Current every day smoker tobacco type: cigarettes ROS ROS ED ROS Narrative Constitutional: No fever, no chills. HEENT: No sore throat. No neck pain. No loss of vision. No rhinorrhea. Cardiovascular: No chest pain. No palpitations. No pedal edema. Respiratory: No cough, no shortness of breath. Abdominal: No abdominal pain. No nausea. No vomiting. Genitourinary: No dysuria. Possible hematuria. Unsure if blood had come from vaginal orifice or urethra. Musculoskeletal: No myalgias. No arthralgias. Neurologic: No headaches. No dizziness. No lightheadedness. Skin: No rash. No change in color. Psychiatric: No depression. No anxiety. EXAM Physical Exam Narrative Exam Narrative: Afebrile. Vital signs noted. HEENT: Normocephalic. Atraumatic. PERRL, EOMI. Neck soft and supple. No point tenderness or step off. Cardiovascular: Regular rate and rhythm. No murmurs, rubs, or gallops appreciated. Respiratory: No tachypnea. Lungs clear to auscultation bilaterally. Gastrointestinal: Abdomen soft, nontender, with normoactive bowel sounds. No rebound or guarding. Genitourinary: Patient declined pelvic examination. Neurological: Awake. Alert. Nonfocal, nonlateralizing. Skin: No rash. Normal color. No pallor. Musculoskeletal: No pedal edema. Full range of motion extremities. Const Vital Signs: 09/10/21 17:45 09/10/21 19:46 09/10/21 19:49 Temperature 96.5 F L 97.9 F Temperature Source Temporal Temporal Pulse Rate 105 H 74 67 Respiratory Rate 18 16 16 Blood Pressure 121/69 H 91/66 91/66 Blood Pressure Mean 86 74 74 Pulse Ox 100 97 97 Oxygen Delivery Method Room Air Room Air MDM MDM MDM Narrative Medical decision making narrative: I had a lengthy discussion with the patient. I did discuss with her the likelihood that her small amount of vaginal bleeding was coming from the vagina as she has had a hysterectomy 8 years ago. Additionally, she has a urine sample sitting on the countertop which is red-tinged. Given her symptoms of UTI with urinary frequency, this was sent for analysis. Urinalysis is positive for nitrites with 500 leukocyte esterase. There are greater than 100 WBCs. Although there are no RBCs there is urine bilirubin and urine urobilinogen. I do feel that she has more of a cystitis. She was given her first dose of Bactrim here in the emergency department and a prescription written for the next 7 days. She will follow-up with her primary care physician. She can take [id number] medications such as Azo as needed. Return instructions were reviewed. Disposition is discharged home in stable condition. Lab Data Attestation: I reviewed the patient's lab results. Labs: Laboratory Results - last 24 hr 09/10/21 19:20 Urine Color Litzy Urine Clarity Sl Cloudy Urine pH 6.0 Ur Specific [place] 1.010 Urine Protein 30 H Urine Glucose (UA) Normal Urine Ketones Negative Urine Occult Blood 250 H Urine Nitrite Positive H Urine Bilirubin 3 H Urine Urobilinogen 8 H Ur Leukocyte Esterase 500 H Urine RBC 0 SEEN Urine WBC >100 SEEN Ur Squamous Epith Cells 0-5 SEEN Urine Bacteria 1+ Urine Mucus 0 SEEN Discharge Plan Triage Chief Complaint: Vag Bleeding ED Provider: Jigar Gutierrez Dx/Rx/DC Orders Clinical Impression: UTI (urinary tract infection) Instructions: ED CYSTITIS Female Adult Prescriptions: New sulfamethoxazole-trimethoprim [Bactrim DS] 800-160 mg tablet 1 tab PO BID Qty: 14 RF: 0 No Action topiramate 200 MG tablet 200 mg PO DAILY RF: 0 topiramate 200 MG tablet 400 mg PO QHS RF: 0 Vimpat 200 MG tablet 200 mg PO BID RF: 0 epinephrine 0.3 MG syringe 0.3 mg IM X1 PRN (Reason: Anaphylaxis) Qty: 2 RF: 0 Primary Care Provider: Shalini Varner Referrals: Shalini Varner DO [Primary Care Provider] - 09/14/21
[2021-09-10 20:30] LABS: Mucous, Urine 0 SEEN /hpf (<or=2+); Red Blood Cells-Urine 0 SEEN /hpf (0-5)
[2021-09-10 20:38] LABS: Color, Urine Amber (Yellow); Glucose, Dipstick Normal (Normal); Ketone-Dipstick Negative (Negative); Leukocyte Esterase-Dipstick 500 /ul (Negative); Nitrite-Dipstick Positive (Negative); Occult Blood-Urine 250 /ul (Negative); Protein-Dipstick 30 mg/dl (Negative); Urine Bilirubin Dipstick 3 mg/dL (Negative); Urine Urobilinogen 8 mg/dl (Normal)
[2021-09-10 20:43] LABS: Urine Clarity Sl Cloudy (Clear)
[2021-09-10 20:44] LABS: White Blood Cells >100 SEEN /hpf (0-5)
[2021-09-10 20:45] LABS: Bacteria 1+ /hpf (None Seen); Squamous Epithelial Cells - UA 0-5 SEEN /hpf (5-10)
[2021-09-10 21:28] VITALS: BP 97/65; PULSE 70; RESP 14; O2SAT 97
[2021-09-10] MEDS: Smz/Tmp Ds Tablet 1 TABLET PO (21:33)
== END 2021-09-10 23:59 ==
PROVIDERS: Emergency Provider Emergency Medicine; Visit Provider Emergency Medicine
DX: N39.0 Urinary tract infection, site not specified (principal); G40.909 Epilepsy, unspecified, not intractable, without status epilepticus; F17.210 Nicotine dependence, cigarettes, uncomplicated; F32.A Depression, unspecified; Z79.899 Other long term (current) drug therapy
CPT/HCPCS: 81001; 99283

== ENCOUNTER 2021-10-09 11:05 | Emergency (ER) | payer MEDICAID, SELFPAY ==
[2021-10-09 11:06] VITALS: BP 105/64; PULSE 90; RESP 18; TEMP 37.2; O2SAT 98; BMI 21.7
--- NOTE | 2021-10-09 11:20 | EX.ED.UPPERE ---
HPI History of Present Illness Chief Complaint: Upper Extremity Injury Informant: patient Occured/Mechanism Mechanism/Context: Yes fall Onset/Context/Timing Onset: Today Context: Sudden Onset Current Severity: Moderate Maximum Severity: Moderate Narrative Narrative: Patient present secondary to right arm injury. Patient was at checking the mail this morning when she slipped on the ice and fell landing on her right arm. She is right-hand dominant. She complains of pain worse at the shoulder, elbow, and thenar eminence of the hand. She is able to wiggle fingers. [facility] Medical History (Updated 10/09/21 @ 13:[address] Elisabeth Kirby MD) Depression Seizure Home Medications topiramate 200 mg PO DAILY 11/10/16 [History Last Taken 11/10/16] lacosamide [Vimpat] 200 mg PO BID 04/24/20 [History Last Taken Unknown] topiramate 400 mg PO QHS 04/24/20 [History Last Taken Unknown] epinephrine 0.3 mg IM X1 PRN #2 syringe 12/06/20 [Rx Last Taken Unknown] sulfamethoxazole-trimethoprim [Bactrim DS] 1 tab PO BID #14 tab 09/10/21 [Rx Last Taken Unknown] naproxen [Naprosyn] 500 mg PO BID PRN #20 tab 10/09/21 [Rx Last Taken Unknown] Allergy/AdvReac Type Severity Reaction Status Date / Time clarithromycin [From Biaxin] Allergy Hives Verified 10/09/21 11:06 Penicillins Allergy Hives Verified 10/09/21 11:06 venom-honey bee Allergy Hives Verified 10/09/21 11:06 [bee venom (honey bee)] Surgical History History of hysterectomy Social History Smoking Status: Current every day smoker tobacco type: cigarettes ROS ROS ED Constitutional Constitutional ED: Denies chills or fever(s) Eyes Eyes: Denies change in vision ENT ENT ED: Denies sore throat Cardiovascular Cardiovascular: Denies chest pain Respiratory/Chest Respiratory/Chest: Denies cough or dyspnea Gastrointestinal Gastrointestinal: Denies abdominal pain, diarrhea, nausea or vomiting Genitourinary Genitourinary ED: Denies dysuria Musculoskeletal Musculoskeletal: Reports other Details: Right upper extremity pain ; Denies back pain or neck pain Integumentary Denies rash Neurologic Neurologic: Denies headache(s), paresthesias or weakness Psychiatric Psychiatric: Denies anxiety or depression Allergic/Immunologic Allergic/Immunologic ED: Denies urticaria EXAM Physical Exam Const Vital Signs: 10/09/21 11:06 Temperature 99 F Temperature Source Temporal Pulse Rate 90 Respiratory Rate 18 Blood Pressure 105/64 Blood Pressure Mean 77 Pulse Ox 98 Oxygen Delivery Method Room Air Positive well nourished and well developed General Appearance ED: well developed HEENT normocephalic and atraumatic Eyes PERRL and EOMs intact bilaterally Neck supple Chest Wall inspection of chest normal and palpation of chest normal Resp normal respiratory effort and clear to auscultation bilaterally Cardio regular rate and regular rhythm GI non-tender Palpation: soft Back/Spine Thoracic Spine / Upper Back: Negative for thoracic spinal tenderness Lumbar Spine / Lower Back: Negative for lumbar spinal tenderness Extremity Extremity Narrative: Tenderness location of the thenar eminence of the right hand with mild edema. Able to wiggle fingers. Good cap refill. Strong radial pulse. Mild tenderness of the extensor surface of the right elbow as well as the shoulder. Decreased range of motion secondary to pain. No obvious deformity. Neuro oriented x3 Sensorium / Orientation: alert Psych mental status grossly normal Skin Lesions: no lesions Rashes: no rashes MDM MDM MDM Narrative Medical decision making narrative: X-rays of the right shoulder, humerus, forearm, and hand are obtained. Patient given naproxen. Radiography Diagnostic Testing: Radiology Impression Hand X-Ray 10/09/21 11:29 IMPRESSION: Soft tissue swelling. Electronically Signed: Nikolas Macdonald MD at 12:16 EST , Humerus X-Ray 10/09/21 11:29 IMPRESSION: No demonstrated right humeral fracture. Electronically Signed: Yovany Butler MD at 12:05 EST , Shoulder X-Ray 10/09/21 11:29 IMPRESSION: Normal x-ray examination of the shoulder. Electronically Signed: Nikolas Macdonald MD at 12:15 EST , Treatment and Re-Evaluation Comments:: X-rays per my interpretation reveal no acute findings. Radiology interpretation is reviewed. Jean Carlos wrap applied to the patient's right hand and wrist. Prescription for naproxen will be provided. Discharge Plan Triage Chief Complaint: Upper Extremity Injury ED Provider: Elisabeth Kirby Dx/Rx/DC Orders Clinical Impression: Fall, Contusion of arm, right Instructions: ED Contusion, Upper Extremity Prescriptions: New naproxen [Naprosyn] 500 mg tablet 500 mg PO BID PRN (Reason: pain) Qty: 20 RF: 0 No Action topiramate 200 MG tablet 200 mg PO DAILY RF: 0 topiramate 200 MG tablet 400 mg PO QHS RF: 0 Vimpat 200 MG tablet 200 mg PO BID RF: 0 epinephrine 0.3 MG syringe 0.3 mg IM X1 PRN (Reason: Anaphylaxis) Qty: 2 RF: 0 sulfamethoxazole-trimethoprim [Bactrim DS] 800-160 mg tablet 1 tab PO BID Qty: 14 RF: 0 Primary Care Provider: Shalini Varner Referrals: Shalini Varner, DO [Primary Care Provider] - 10-14 Days if not better Disposition Disposition: Home, Self Care
[2021-10-09] MEDS: Naproxen 500 MG Tablet PO (11:22)
--- NOTE | 2021-10-09 11:29 | RAD_ITS ---
STUDY: X-RAY - RIGHT RADIUS AND ULNA REASON FOR EXAM: Right forearm pain, right forearm injury today. TECHNIQUE: 2 view(s) of the forearm. COMPARISON: Radiograph report 10/22/2014. FINDINGS: There is no demonstrated soft tissue swelling. Normal visualized radius. Normal visualized ulna. RAD/Forearm 2 Views IMPRESSION: Normal x-ray examination of the right radius and ulna. Electronically Signed: Yovany Butler MD at 13:14 EST ,
--- NOTE | 2021-10-09 11:29 | RAD_ITS ---
STUDY: X-RAY - RIGHT SHOULDER REASON FOR EXAM: Female, 41 years old. Fall TECHNIQUE: 4 view(s) of the shoulder. COMPARISON: None. FINDINGS: Normal glenohumeral articulation. Normal acromioclavicular joint. Normal acromion. Normal humeral head and visualized proximal humerus. The soft tissue structures are unremarkable. Normal visualized pulmonary apex. RAD/Shoulder min 2 Views IMPRESSION: Normal x-ray examination of the shoulder. Electronically Signed: Nikolas Macdonald MD at 12:15 EST ,
--- NOTE | 2021-10-09 11:29 | RAD_ITS ---
STUDY: X-RAY - RIGHT HAND REASON FOR EXAM: Female, 41 years old. Fall TECHNIQUE: 3 view(s) of the hand. COMPARISON: None. FINDINGS: Normal radiocarpal articulation. Normal distal radioulnar joint. Normal visualized carpal bones. Normal carpal articulations Normal carpometacarpal articulation of the thumb. Normal second through fifth carpometacarpal joints. Normal metacarpi. Normal metacarpophalangeal joint of the thumb. Normal interphalangeal joint of the thumb. Normal proximal and distal phalanges of the thumb. Normal metacarpophalangeal joints of the second through fifth fingers. Normal proximal and distal interphalangeal joints of the second through fifth fingers. Normal phalanges of the second through fifth fingers. Soft tissue swelling. RAD/Hand Min 3 Views IMPRESSION: Soft tissue swelling. Electronically Signed: Nikolas Macdonald MD at 12:16 EST ,
--- NOTE | 2021-10-09 11:29 | RAD_ITS ---
STUDY: X-RAY - RIGHT HUMERUS REASON FOR EXAM: Right humeral pain, right humeral injury today. TECHNIQUE: 2 view(s) of the humerus. COMPARISON: None. FINDINGS: Normal visualized humerus. There is no demonstrated fracture or osseous destructive process. There is no demonstrated soft tissue abnormality. RAD/Humerus min 2 Views IMPRESSION: No demonstrated right humeral fracture. Electronically Signed: Yovany Butler MD at 12:05 EST ,
[2021-10-09 13:09] VITALS: RESP 14
== END 2021-10-09 13:11 | disposition home or self-care (01) ==
PROVIDERS: Emergency Provider Emergency Medicine; Visit Provider Emergency Medicine
DX: S40.021A Contusion of right upper arm, initial encounter (principal); W00.0XXA Fall on same level due to ice and snow, initial encounter; F17.210 Nicotine dependence, cigarettes, uncomplicated
CPT/HCPCS: 73030; 73060; 73090; 73130; 99283

== ENCOUNTER 2021-10-16 20:24 | Emergency (ER) | payer MEDICAID, SELFPAY ==
[2021-10-16 20:25] VITALS: BP 116/70; PULSE 78; RESP 16; TEMP 36.9; O2SAT 99; BMI 23.1
[2021-10-16 20:36] VITALS: BP 106/72; PULSE 79; RESP 15; O2SAT 100
--- NOTE | 2021-10-16 20:41 | CT_ITS ---
STUDY: CT ABDOMEN AND PELVIS WITHOUT CONTRAST REASON FOR EXAM: Female, 41 years old. Severe lower back pain for 3 hours. Painful urination. Question kidney stone. RADIATION DOSAGE (If Supplied By Facility): CTDIvol = ( 6.40 ) mGy, DLP = ( 340.53 ) mGycm TECHNIQUE: Transaxial images were obtained from the dome of the diaphragm to the symphysis pubis without oral contrast, and without intravenous contrast. Sagittal and coronal images were reconstructed. Individualized dose optimization techniques were used for this CT. COMPARISON: None. FINDINGS: The visualized lung bases are unremarkable. The visualized portions of the heart are within normal limits. There is elongation of the right lobe of the liver consistent with a Ghulam''s lobe. There is non-visualization of the gallbladder, which may be secondary to either contraction or a prior cholecystectomy. Normal spleen. Normal pancreas. Normal bilateral adrenal glands. Normal right kidney. Normal left kidney. Normal visualized ureters. Normal visualized stomach. Normal small intestine. Normal colon. There is non-visualization of the appendix. Normal abdominal aorta. Normal inferior vena cava. Normal retroperitoneum. Normal urinary bladder. Normal uterus and ovaries. There is no pelvic lymphadenopathy. No free air or free fluid is seen within the peritoneal cavity. Normal abdominal wall. Normal osseous structures. CT/Abdomen/Pelvis without Cont IMPRESSION: 1. No evidence of renal, ureteral or urinary bladder abnormality. 2. No evidence for acute intra-abdominal process. 3. Ghulam''s lobe of the liver. Electronically Signed: Felipe Velasquez DO at 21:37 EST Reading Location ID and State: [address] [place] [address] Tel [phone], Service support ,
--- NOTE | 2021-10-16 20:42 | EDS_ITS ---
HPI History of Present Illness Chief Complaint: Back Informant: patient Narrative Narrative: Nontraumatic left lower back pain for the past 2 days. Saw her infection control specialist yesterday noted blood in her urine had urine frequency at that time. States no infection. She had hysterectomy. Refer to urology has appointment on with Dr. Guillen. Has a plan renal ultrasound ordered however not done. No history of kidney stones. Pain increased this evening up to an 8. Nausea without vomiting. States currently has mild dysuria. No fevers. No history of gastric ulcers or kidney injury. Prior similar symptoms: No PFSH PFSH Medical History Depression Seizure Smoker Home Medications topiramate 200 mg PO DAILY 11/10/16 [History Last Taken 11/10/16] lacosamide [Vimpat] 200 mg PO BID 04/24/20 [History Last Taken Unknown] topiramate 400 mg PO QHS 04/24/20 [History Last Taken Unknown] epinephrine 0.3 mg IM X1 PRN #2 syringe 12/06/20 [Rx Last Taken Unknown] ibuprofen 600 mg PO 4X/DAY PRN #20 tab 10/16/21 [Rx Last Taken Unknown] nitrofurantoin monohyd/m-cryst [Macrobid] 100 mg PO Q12H 5 Days #10 cap 10/16/21 [Rx Last Taken Unknown] ondansetron 4 mg PO Q6H PRN #10 tab 10/16/21 [Rx Last Taken Unknown] Allergy/AdvReac Type Severity Reaction Status Date / Time clarithromycin [From Biaxin] Allergy Hives Verified 10/16/21 20:25 Penicillins Allergy Hives Verified 10/16/21 20:25 venom-honey bee Allergy Hives Verified 10/16/21 20:25 [bee venom (honey bee)] Surgical History History of hysterectomy Social History Smoking Status: Current every day smoker tobacco type: cigarettes ROS ROS ED Constitutional Constitutional ED: Denies chills, fever(s) or sweats Eyes Eyes: Denies change in vision ENT ENT ED: Denies dysphagia or sore throat Cardiovascular Cardiovascular: Denies chest pain, leg edema, palpitations or racing heartbeat Respiratory/Chest Respiratory/Chest: Denies cough, dyspnea or dyspnea on exertion Gastrointestinal Gastrointestinal: Reports nausea; Denies abdominal pain, diarrhea or vomiting Genitourinary Genitourinary ED: Reports dysuria and hematuria; Denies urinary frequency Musculoskeletal Musculoskeletal: Reports back pain; Denies extremity pain or neck pain Integumentary Denies rash or wounds Neurologic Neurologic: Denies headache(s), paresthesias or weakness EXAM Physical Exam Const Vital Signs: 10/16/21 20:25 10/16/21 20:36 10/16/21 21:08 Temperature 98.4 F Temperature Source Temporal Pulse Rate 78 79 Respiratory Rate 16 15 16 Blood Pressure 116/70 106/72 Blood Pressure Mean 85 83 Pulse Ox 99 100 Oxygen Delivery Method Room Air Room Air Positive well nourished and well developed General Appearance ED: well developed and NAD HEENT Reports moist mucous membranes normocephalic and atraumatic Eyes PERRL, EOMs intact bilaterally and conjunctivae normal General Eye ED: Yes normal appearance of both eyes Neck no lymphadenopathy and supple General: Negative for tenderness Chest Wall Chest: Negative for tenderness Resp normal respiratory effort and normal air movement Effort and Inspection: symmetric chest movement; Negative for respiratory distress Cardio regular rate, regular rhythm and no murmurs Peripheral Pulses: pulses 2+ throughout GI normal to inspection, nondistended, normoactive bowel sounds and non-tender Palpation: Negative for guarding or rebound tenderness present Back/Spine no CVA tenderness and no thoracic nor lumbar tenderness General Back: Negative for CVA tenderness Extremity normal to inspection General Extremety ED: Negative for edema or tenderness General Extremity: Negative for edema Neuro oriented x3 and no sensory deficits noted Sensorium / Orientation: awake and alert Skin no rashes or lesions noted and no wounds MDM MDM MDM Narrative Medical decision making narrative: Patient increasing left lower flank pain. Renal stone protocol. CT scan results negative for any acute process. Labs white count 9.1 hemoglobin 14. Creatinine 0.76. Potassium 3.3 she was given or al replacement. Urine noted 150 occult blood noted leukocyte esterase. No other acute findings. She does report mild dysuria. Culture will be sent she started on Macrobid twice a day for 5 days. She was treated with Zofran and Toradol in the ED and reevaluate symptoms are improving. Should be continued on NSAIDs and antiemetics as needed. She will keep her follow-up with urology due to her hematuria. Discussed with patient called her PCP, will not likely need a renal ultrasound secondary to CTs already been done. Patient is being discharged under pandemic conditions under declared global, national and state disaster activation, with limited medical resources. Patient and community understands this. Results discussed in layman's terms to the patient satisfaction. All questions answered in layman's terms. Patient understands importance of follow-up care as directed. Patient has been instructed to return to the ED immediately if new symptoms, problems, or questions occur. We mutually agree with the plan of disposition. The patient understand that they may call or return with any questions or concerns at any time. Lab Data Attestation: I reviewed the patient's lab results. Labs: Laboratory Results - last 24 hr 10/16/21 10/16/21 10/16/21 20:58 20:58 21:51 WBC 9.1 RBC 4.32 Hgb 14.1 Hct 39.8 MCV 92.1 MCH 32.6 H MCHC 35.4 RDW Std Deviation 46.7 H RDW Coeff of Bob 13.8 Plt Count 218 MPV 10.2 Immature Gran % (Auto) 0.200 Neut % (Auto) 57.3 Lymph % (Auto) 31.7 Richardson % (Auto) 6.6 Eos % (Auto) 3.3 Baso % (Auto) 0.9 Absolute Neuts (auto) 5.2 Absolute Lymphs (auto) 2.87 Nucleated RBC % 0 Sodium 139 Potassium 3.3 L Chloride 113 H Carbon Dioxide 22.0 Anion Gap 4 L BUN 9 Creatinine 0.76 Estim Creat Clear Calc 90.27 Est GFR (MDRD) Af Amer 107 Est GFR (MDRD) Non-Af 89 BUN/Creatinine Ratio 11.9 Glucose 79 Calcium 8.4 L Urine Color Yellow Urine Clarity Clear Urine pH 6.0 Ur Specific [place] 1.010 Urine Protein 15 H Urine Glucose (UA) Normal Urine Ketones Negative Urine Occult Blood 150 H Urine Nitrite Negative Urine Bilirubin Negative Urine Urobilinogen Normal Ur Leukocyte Esterase 100 H Urine RBC 0 SEEN Urine WBC 0-5 SEEN Ur Squamous Epith Cells 0-5 SEEN Urine Bacteria 0 SEEN Urine Mucus 0 SEEN Radiography Diagnostic Testing: Clinical Impression(s) from Imaging Studies Abdomen/Pelvis CT 10/16/21 20:41 IMPRESSION: 1. No evidence of renal, ureteral or urinary bladder abnormality. 2. No evidence for acute intra-abdominal process. 3. Ghulam''s lobe of the liver. Electronically Signed: Felipe Velasquez at 21:37 EST Reading Location ID and State: [address] [place] [address] Tel [phone], Service support , Discharge Plan Triage Chief Complaint: Back ED Provider: Srikanth Shankar Dx/Rx/DC Orders Clinical Impression: Urinary tract infection with hematuria, Back pain Instructions: Urinary Tract Infections in Women, ED Hematuria Prescriptions: New ibuprofen 600 MG tablet 600 mg PO 4X/DAY PRN (Reason: Pain Or Fever) Qty: 20 RF: 0 ondansetron 4 mg tablet,disintegrating 4 mg PO Q6H PRN (Reason: nausea and vomiting) Qty: 10 RF: 0 nitrofurantoin monohyd/m-cryst [Macrobid] 100 mg capsule 100 mg PO Q12H 5 Days Qty: 10 RF: 0 No Action topiramate 200 MG tablet 200 mg PO DAILY RF: 0 topiramate 200 MG tablet 400 mg PO QHS RF: 0 Vimpat 200 MG tablet 200 mg PO BID RF: 0 epinephrine 0.3 MG syringe 0.3 mg IM X1 PRN (Reason: Anaphylaxis) Qty: 2 RF: 0 Primary Care Provider: Shalini Varner Referrals: Marguerite Guillen MD [STAFF PHYSICIAN] - Keep Shay appointment Shalini Varner DO [Primary Care Provider] - Activity Restrictions/Additional Instructions: CT scan abdomen pelvis negative for any obstructive process. No hydronephrosis. Urine leukocytes and hematuria. Culture sent. Take antibiotic as prescribed. Continue Motrin and Zofran as needed. Keep your follow-up with Dr. Guillen. Disposition Disposition: Home, Self Care
[2021-10-16 21:03] LABS: Absolute Lymphocyte Count 2.87 X10^3/uL (0.83-4.51); Absolute Neutrophil Count 5.2 X10^3/uL (2.0-7.7); Basophil# 0.08 X10^3/uL; Basophil% 0.9 % (0-1); Eosinophils% 3.3 % (0-5); Hematocrit 39.8 % (37-47); Hemoglobin 14.1 g/dL (12.0-15.0); Lymphocyte # 2.87 X10^3/ul (0.83-4.51); Lymphocyte % 31.7 % (19-41); Mean Corp Hgb Conc 35.4 g/dL (32-36); Mean Corpuscular Hgb 32.6 pg (27.0-32.0); Mean Corpuscular Volume 92.1 fL (81-99); Mean Platelet Vol. 10.2 fl (6.2-12.0); Monocyte% 6.6 % (0-10); NRBC Flagged by Analyzer 0 % (0-5); Neutrophil # 5.18 X10^3/uL (2.7-7.7); Neutrophil % 57.3 % (47-70); Platelet Count 218 K/mm3 (150-450); RBC Distribution Width CV 13.8 % (11.6-14.6); RBC Distribution Width SD 46.7 fl (35.1-43.9); Red Blood Count 4.32 M/mm3 (4.2-5.4); White Blood Count 9.1 K/mm3 (4.4-11.0)
[2021-10-16] MEDS: Ondansetron 4 MG/2 ML Vial IV (21:05)
[2021-10-16] MEDS: Ketorolac 15 MG/ML Vial IV (21:05)
[2021-10-16] MEDS: 0.9% Normal Saline 1,000 ML 250 ML IV (21:05)
[2021-10-16 21:08] VITALS: RESP 16
[2021-10-16 21:40] LABS: Anion Gap 4 (5-15); BUN 9 mg/dL (7-18); BUN/Creat Ratio 11.9 RATIO (10-20); Calcium,Total 8.4 mg/dL (8.5-10.1); Chloride 113 mmol/L (98-107); Creatinine, Serum 0.76 mg/dL (0.55-1.02); EST Glomerular Filtration Rate 89 mL/min (>60); Est Glom Filt Rate - Afr Amer 107 mL/min (>60); Estimated Creatinine Clearance 90.27 ml/min; Glucose 79 mg/dL (74-106); Potassium 3.3 mmol/L (3.5-5.1); Sodium Level 139 mmol/L (136-145)
[2021-10-16] MEDS: Potassium Chloride Oral Tablet 20 MEQ 40 MEQ PO (21:49)
[2021-10-16 21:55] LABS: Bacteria 0 SEEN /hpf (None Seen); Mucous, Urine 0 SEEN /hpf (<or=2+); Red Blood Cells-Urine 0 SEEN /hpf (0-5)
[2021-10-16 21:58] LABS: Color, Urine Yellow (Yellow); Glucose, Dipstick Normal (Normal); Ketone-Dipstick Negative (Negative); Leukocyte Esterase-Dipstick 100 /ul (Negative); Nitrite-Dipstick Negative (Negative); Occult Blood-Urine 150 /ul (Negative); Protein-Dipstick 15 mg/dl (Negative); Urine Bilirubin Dipstick Negative (Negative); Urine Clarity Clear (Clear); Urine Urobilinogen Normal (Normal)
[2021-10-16 22:16] LABS: White Blood Cells 0-5 SEEN /hpf (0-5)
[2021-10-16 22:17] LABS: Squamous Epithelial Cells - UA 0-5 SEEN /hpf (5-10)
[2021-10-16] MEDS: Nitrofurantoin Macrocrystals 100 MG Capsule PO (22:29)
== END 2021-10-16 22:33 | disposition home or self-care (01) ==
PROVIDERS: Emergency Provider Emergency Medicine; Visit Provider Emergency Medicine
DX: N39.0 Urinary tract infection, site not specified (principal); F17.210 Nicotine dependence, cigarettes, uncomplicated; R31.9 Hematuria, unspecified; M54.9 Dorsalgia, unspecified
CPT/HCPCS: 74176; 80048; 81001; 85025; 87077; 87086; 87088; 87186; 96361; 96374; 96375; 99284; J7030; A4216; J2405

== ENCOUNTER 2021-10-24 13:28 | Outpatient (CLI) | payer MEDICAID, SELFPAY ==
--- NOTE | 2021-10-24 10:20 | CYSPIN_PTH ---
PATIENT: ELADIO SANTANA LOC: [facility] U#:[id number] AGE/SX: 41/F ROOM: RE10/24/[address]: Dr. Marguerite Guillen MD : 1980 BED: DIS: 10/24/2021 SPEC #: [id number] RECD: 10/25/21 07:23 STATUS: LON NICK #: [id number] DAWN: 10/24/21 10:[address]: Marguerite Guillen DEPT: CYTOLOGY RECD BY: Ally Mark ENTERED: 10/25/21 07:24 SP TYPE: CYSPIN FL OTHR DR: Dr. Shalini Varnre, DO Tissues: Urine Procedures: Pap Stain (control) Special Stain Group II Cytospin Fluid HEADER OPERATION: Not noted PRE-OP DIAGNOSIS: Gross hematuria TISSUE SUBMITTED: Urine for cytology DIAGNOSIS CYTOLOGY Urine for cytology (cytospin): Rare atypical urothelial cells, favor reactive. Abundant squamous epithelial cells. See comment. AM:leo 10/25/2021 COMMENT Clinical correlation is suggested. CYTOLOGY STUDY Slides are reviewed. CYTOLOGY GROSS Received is 20 ml of cloudy yellow-gold fluid labeled with the patient's name and and designated per the requisition as urine. Submitted for cytology preparation. / leo 10/24/2021 TC:? CPT: 03820
[2021-10-24 16:34] LABS: Cytology, Body Fluid / CSF SEE PATHOLOGY REPORT
== END 2021-10-24 23:59 | disposition home or self-care (01) ==
LOC: LABSPEC 11-14 13:28
PROVIDERS: Visit Provider Urology
DX: R31.0 Gross hematuria (principal)
CPT/HCPCS: 88108; 88313

== ENCOUNTER 2021-10-31 18:32 | Outpatient (CLI) | payer MEDICAID, SELFPAY ==
--- NOTE | 2021-10-31 18:36 | CT_ITS ---
STUDY: CT ABDOMEN AND PELVIS WITH AND WITHOUT CONTRAST REASON FOR EXAM: Female, 41 years old. HEMATURIA RADIATION DOSAGE (If Supplied By Facility): CTDIvol = ( 13.55 ) mGy, DLP = ( 2063.00 ) mGycm TECHNIQUE: Transaxial images were obtained from the dome of the diaphragm to the symphysis pubis without oral contrast. IV 100mL Isovue-300 was administered. Sagittal and coronal images were reconstructed. Individualized dose optimization techniques were used for this CT. COMPARISON: Comparison is made with prior study dated 10/16/2021. FINDINGS: The visualized lung bases are unremarkable. The visualized portions of the heart are within normal limits. There is a 7.5 mm well-defined hypodensity in the central aspect of the right lobe of the liver suggestive of a small cyst. Ghulam''s lobe of the liver. The patient is status post cholecystectomy. Normal spleen. Normal pancreas. Normal bilateral adrenal glands. Normal right kidney. Normal left kidney. Large amount of residual fluid particles are seen within the stomach. Normal small intestine. Normal colon. There are surgical clips in the region of the appendix consistent with a prior appendectomy. Normal abdominal aorta. Normal inferior vena cava. Normal retroperitoneum. Normal urinary bladder. There is absence of the uterus consistent with a prior hysterectomy. Normal abdominal wall. Normal osseous structures. CT/CT Abd/Pelvis W/WO Contrast IMPRESSION: Small cyst in the right lobe of the liver. Status post cholecystectomy and hysterectomy. No acute abnormality is seen. Electronically Signed: Nikolas Macdonald MD at 15:42 EST ,
== END 2021-10-31 23:59 | disposition home or self-care (01) ==
LOC: CT 18:33
PROVIDERS: Visit Provider Urology
DX: R31.0 Gross hematuria (principal)
CPT/HCPCS: 74178; Q9967

== ENCOUNTER 2021-12-19 13:53 | Outpatient (CLI) | payer MEDICAID, SELFPAY ==
[2021-12-21 15:54] LABS: Topiramate 13.7 ug/mL (2.0-25.0)
== END 2021-12-19 23:59 | disposition home or self-care (01) ==
PROVIDERS: Referring Provider Nurse Practitioner Family; Visit Provider Nurse Practitioner Family
DX: R56.9 Unspecified convulsions (principal)
CPT/HCPCS: 36415; 80201

== ENCOUNTER 2021-12-24 10:50 | Day surgery (SDC) | payer MEDICAID, SELFPAY ==
[2021-12-24] VITALS (7 sets, daily range): BP systolic 86–94; BP diastolic 51–62; PULSE 50–64; RESP 16; TEMP 36.3–37.3; O2SAT 99–100; BMI 22.4
[2021-12-24] MEDS: Lactated Ringers 1,000 ML 30 ML IV (11:44)
[2021-12-24] MEDS: Cefazolin 2 GM in 0.9% Normal Saline 100 ML IV (12:57)
--- NOTE | 2021-12-24 13:37 | PCM.DC ---
Discharge Instructions Diet Discharge Diet: No restrictions Activity Discharge Activity: No Restrictions Dressing / Incision Call your doctor if you observe: Fever of 101 or Higher, Inability to urinate and Inability to have a bowel movement Follow Up Care Please Follow Up With: Marguerite Guillen MD When: 2-3 weeks, call for appointment Test Results: Test results from this visit will be discussed in further detail at your follow-up appointment, if applicable. Discharge Plan Admission Attending Provider: Marguerite Guillen Primary Care Provider: Shalini Varner Discharge Orders/Prescriptions Prescriptions: New phenazopyridine [Pyridium] 200 MG tablet 200 mg PO TID PRN PRN (Reason: Bladder Spasms) 7 Days Qty: 30 RF: 0 sulfamethoxazole-trimethoprim [sulfamethoxazole-trimethoprim] 1 TABLET tablet 1 tab PO BID 3 Days Qty: 6 RF: 0 Continued topiramate 200 MG tablet 200 mg PO DAILY RF: 0 topiramate 200 MG tablet 400 mg PO QHS RF: 0 lacosamide [Vimpat] 200 MG tablet 200 mg PO BID RF: 0 epinephrine 0.3 MG syringe 0.3 mg IM X1 PRN (Reason: Anaphylaxis) Qty: 2 RF: 0 Botox 100 unit Recon Soln 100 unit subcut X1 RF: 0 sumatriptan succinate [Imitrex] 25 mg Tablet 25 mg PO Q2H PRN (Reason: Headache) RF: 0 Referrals / Follow Up: Shalini Varner DO [Primary Care Provider] - Disposition Disposition (needs filled in before D/C Order can be placed): Home, Self Care
--- NOTE | 2021-12-24 13:39 | PCM.OPRPT ---
Problems Associated Problem List Diagnoses (1) Urinary tract infection: (2) Urgency of urination: (3) Frequency of micturition: (4) Hematuria: Report of Operation Date of Procedure: 12/24/21 Pre-Operative Diagnosis: Urinary tract infection, hematuria, urinary urgency, urinary frequency Post-Operative Diagnosis: Same, urethral stricture Surgery/Procedure Performed:: Urethral dilation, pelvic exam under anesthesia, cystoscopy with hydrodistention Surgeon: Marguerite Guillen Type of Anesthesia: MAC Description of Procedure: The patient is a 41-year-old female with recent concerns regarding urinary tract infections with hematuria, urinary urgency and frequency. She now presents for evaluation under anesthesia. Informed consent was obtained. The patient was taken to the operating room and placed on the operating room table. Anesthesia monitored the head, neck, airway, IV access and vital signs throughout the case. Once anesthesia was appropriate ministered the patient was taken to the operating room and placed on the operating room table. She was appropriately padded and secured to the table. Anesthesia monitored the head, neck, airway, IV access and vital signs throughout the case. Once anesthesia was appropriate ministered the patient was placed into dorsolithotomy position was prepped and draped in usual sterile fashion. A pelvic examination revealed no mass, stool, prolapse or other abnormality. Of note her bladder neck was very anteriorly position. At this time an attempt was made at passage with the cystoscope through the urethra and obstruction was met. Using female sounds, the urethra was dilated from [address] to 24 [place] with urine obtained through the sounds. At this time the cystoscope easily transmitted through the urethra and into the urinary bladder without difficulty. Once in the urinary bladder, the ureteral orifices were located in a very medial position on the trigone. The remainder of the cystoscopy was normal with no erythema, mass, foreign body or ulceration identified. The bladder was distended to capacity with saline. It was left to sit for 2 minutes. Capacity was measured at 500 cc. There is no terminal hematuria identified. At this time on reentry into the bladder with a camera, the mucosa was found to be injected without glomerulations. It was once a again filled to capacity and left to sit for 2 minutes. Capacity was measured at 550 cc. Her bladder was emptied and the case was terminated. The patient was awakened and taken to the recovery room in good condition. There were no complications during the procedure. Grafts/Implants Used: None Complications None Admit VTE Documentation VTE Present on Admission: Yes VTE Mechan Device Prophylaxis: SCD's VTE Pharm Prophylaxis ordered?: No Reason prophylaxis not ordered:: Treatment Not Indicated
== END 2021-12-24 14:39 | disposition home or self-care (01) ==
LOC: SDC 10:52 → AC 10:52
PROVIDERS: Referring Provider Urology; Visit Provider Urology
PROC: 0TJB8ZZ Inspection of Bladder, Via Natural or Artificial Opening Endoscopic (ICD-10-PCS; CPT 57410; principal; 2021-12-24 12:40)
DX: N39.0 Urinary tract infection, site not specified (principal); F32.A Depression, unspecified; R31.0 Gross hematuria; R39.15 Urgency of urination; R35.0 Frequency of micturition; R35.1 Nocturia; F17.200 Nicotine dependence, unspecified, uncomplicated
CPT/HCPCS: 53665; 00910; 87426; C9803; J7120; J2405

== ENCOUNTER 2022-07-18 21:44 | Emergency (ER) | payer MEDICAID, SELFPAY ==
[2022-07-18 21:47] VITALS: BP 106/69; PULSE 75; RESP 18; TEMP 36.7; O2SAT 100; BMI 24.3
--- NOTE | 2022-07-18 22:14 | EDS_ITS ---
HPI History of Present Illness Chief Complaint: Seizure Informant: patient Onset/Context/Timing Onset: Today Context: Sudden Onset Timing: Continuous Current Severity: Gone Maximum Severity: Moderate Narrative Narrative: 42-year-old male history of migraine headaches and seizures for the past 8 years. She is on antiseizure medications Vimpat and Topamax. Says her last seizure was around 6 months ago. This occurred tonight at work. Reportedly lasted about 10 minutes. She denies any injuries. She denies any head injury or neck pain. No chest or abdominal pain. Prior similar symptoms: Yes Recent Illness/Hospitalization: No [facility] Medical History Anxiety Bladder disease Depression Frequency of micturition Hematuria Migraine headache Seizure Smoker Urgency of urination Urinary tract infection Wears dentures Home Medications topiramate 200 mg tablet 200 mg PO DAILY 11/10/16 [History Last Taken 11/10/16] lacosamide 200 mg tablet (Vimpat) 200 mg PO BID 04/24/20 [History Last Taken Unknown] topiramate 200 mg tablet 400 mg PO QHS 04/24/20 [History Last Taken Unknown] epinephrine 0.3 mg/0.3 mL injection, auto-injector 0.3 mg (0.3 mL) IM X1 PRN Anaphylaxis ##2 12/06/20 [Rx Last Taken Unknown] onabotulinumtoxinA 100 unit solution for injection (Botox) 100 unit subcut X1 0 12/17/21 [History Last Taken Unknown] sumatriptan succinate 25 mg tablet (Imitrex) 25 mg PO Q2H PRN Headache 12/17/21 [History Last Taken Unknown] cephalexin 500 mg capsule mg 07/18/22 [History Last Taken Unknown] solifenacin 10 mg tablet 10 mg PO DAILY 07/18/22 [History Last Taken Unknown] Allergy/AdvReac Type Severity Reaction Status Date / Time clarithromycin [From Biaxin] Allergy Hives Verified 12/24/21 11:24 Penicillins Allergy Hives Verified 12/24/21 11:24 venom-honey bee Allergy Hives Verified 12/24/21 11:24 [bee venom (honey bee)] Surgical History History of History of cholecystectomy History of hysterectomy Social History Smoking Status: Current every day smoker tobacco type: cigarettes ROS ROS ED ROS Narrative Denies recent illness. Review of Systems ROS Unobtainable: Denies due to encephalopathy Constitutional Constitutional ED: Denies fever(s) Eyes Eyes: Denies blurry vision ENT ENT ED: Denies ear pain Cardiovascular Cardiovascular: Denies chest pain Respiratory/Chest Respiratory/Chest: Denies cough Gastrointestinal Gastrointestinal: Denies abdominal pain Genitourinary Genitourinary ED: Denies dysuria Musculoskeletal Musculoskeletal: Denies arthralgias Integumentary Denies abscess Neurologic Neurologic: Denies headache(s) Psychiatric Psychiatric: Denies anxiety Endocrine Endocrinology: Denies cold intolerance Hematologic/Lymphatic Hematologic/Lymphatic: Reports none Allergic/Immunologic Allergic/Immunologic ED: Denies mouth swelling or tongue swelling EXAM Physical Exam Narrative Exam Narrative: 42-year-old female no acute distress. Vital signs stable afebrile. Pulse ox 9% on room air no hypoxia. She is awake and alert. H EENT exam unremarkable atraumatic. Pupils round reactive light. Moist mucous membranes. She has no bite painting on her tongue. No signs of trauma to her head or scalp. Neck nontender. Back nontender. Trachea midline. No lymphadenopathy. Lungs clear to auscultation bilaterally. Heart regular rhythm rate about 75 no murmur. C hest wall nontender. Abdomen soft nontender. Pelvic girdle intact. Moving all 4 extremities. 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 Normal dorsi plantar flexion. Nontender no deformity. Neurologic exam normal. NIH is 0. She is awake and alert. Answering questions and following commands. She knows date, month, year and where she is at. She currently does not appear postictal. Const Vital Signs: 07/18/22 21:47 Temperature 98.0 F Temperature Source Temporal Pulse Rate 75 Respiratory Rate 18 Blood Pressure 106/69 Blood Pressure Mean 81 Pulse Ox 100 Oxygen Delivery Method Room Air Positive well nourished and well developed; Negative for obese, cachectic, contractures or unkempt General Appearance ED: well developed and NAD; Negative for unkempt, cachectic, contractures, cyanotic, diaphoretic or pallor Nutritional Appearance: Negative for cachectic or obese HEENT Reports moist mucous membranes; Denies dry mucous membranes Negative for trauma or tenderness Mouth ED: No dry mucous membranes Mouth: No dry mucous membranes Eyes PERRL and EOMs intact bilaterally General Eye ED: Negative for pale conjunctiva or scleral icterus Neck no lymphadenopathy, supple and no JVD General: Negative for tenderness Lymph Lymphatic: Negative for other Chest Wall inspection of chest normal and palpation of chest normal Chest: Negative for other Resp normal respiratory effort and clear to auscultation bilaterally Effort and Inspection: Negative for retractions Auscultation: Negative for rales, rhonchi or wheezes Cardio regular rate, regular rhythm, S1 normal heart sound, S2 normal heart sound and no murmurs Palpation: Negative for palpable S3 Rate: Negative for bradycardia Rhythm: Negative for abnormal rhythm GI normal to inspection, nondistended, normoactive bowel sounds, non-tender, non- distended and no masses Inspection: Negative for abdominal distention Auscultation: normoactive bowel sounds Palpation: soft; Negative for tender or guarding Back/Spine no CVA tenderness General Back: Negative for CVA tenderness Cervical Spine: Negative for cervical spine tenderness Thoracic Spine / Upper Back: Negative for thoracic spinal tenderness Lumbar Spine / Lower Back: Negative for lumbar spinal tenderness Extremity normal to inspection General Extremety ED: Negative for edema or tenderness General Extremity: Negative for edema Neuro oriented x3 Sensorium / Orientation: alert; Negative for orientation impaired, lethargic or stuporous Motor Exam: strength 5/5 throughout Psych mental status grossly normal Appearance: Negative for unkempt Attitude: No agitated Mood & Affect: Negative for depressed, anxious or tearful Skin no rashes or lesions noted and no wounds General Skin Exam: elasticity normal; Negative for jaundice or pallor Lesions: No lesion noted Rashes: No rashes noted Trauma: Negative for abrasion Wounds: Negative for wounds noted MDM MDM MDM Narrative Medical decision making narrative: 42-year-old with known history of seizure disorder has been taking her medications had reportedly a 5 to 10-minute seizure tonight at work. Denies any injuries. Currently has a normal exam. Screening labs will be obtained. She will be observed with seizure precautions. Repeat exam the patient is doing well at 11 PM. She will be discharged home with outpatient follow-up. Continue your seizure medications. Lab Data Attestation: I reviewed the patient's lab results. Lab results narrative: CBC unremarkable white count of 5.9. H&H 12.3 and 36. Platelets 202. Electrolytes unremarkable gap of 5 normal BUN 11 creatinine 0.8. Glucose 93. Labs: Laboratory Results - last 24 hr 07/18/22 07/18/22 22:20 22:20 WBC 5.9 RBC 3.83 L Hgb 12.3 Hct 36.2 L MCV 94.5 MCH 32.1 H MCHC 34.0 RDW Std Deviation 47.1 H RDW Coeff of Obb 13.6 Plt Count 202 MPV 10.1 Immature Gran % (Auto) 0.300 Neut % (Auto) 54.5 Lymph % (Auto) 32.3 [place] % (Auto) 8.4 Eos % (Auto) 3.7 Baso % (Auto) 0.8 Absolute Neuts (auto) 3.2 Absolute Lymphs (auto) 1.91 Nucleated RBC % 0 Sodium 141 Potassium 4.1 Chloride 112 H Carbon Dioxide 24.0 Anion Gap 5 BUN 11 Creatinine 0.89 Estim Creat Clear Calc 76.30 Est GFR (MDRD) Af Amer 89 Est GFR (MDRD) Non-Af 74 BUN/Creatinine Ratio 12.3 Glucose 93 Calcium 8.7 Discharge Plan Triage Chief Complaint: Seizure ED Provider: Galdino Kamara Dx/Rx/DC Orders Clinical Impression: Seizure Instructions: ED Seizure, Recurrent (Adult) Prescriptions: No Action topiramate 200 MG tablet 200 mg PO DAILY topiramate 200 MG tablet 400 mg PO QHS lacosamide [Vimpat] 200 MG tablet 200 mg PO BID epinephrine 0.3 MG syringe 0.3 mg IM X1 PRN (Reason: Anaphylaxis) Qty: 2 0RF Botox 100 unit Recon Soln 100 unit subcut X1 Rx Instructions: Q 3 MONTHS FOR OLIVER sumatriptan succinate [Imitrex] 25 mg Tablet 25 mg PO Q2H PRN (Reason: Headache) cephalexin 500 mg capsule solifenacin 10 mg tablet 10 mg PO DAILY Label Comments: take 1 tablet by mouth once daily IN THE MORNING WITH BREAKFAST Primary Care Provider: Shalini Varner Referrals: Shalini Varner DO [Primary Care Provider] - As Needed Activity Restrictions/Additional Instructions: Follow-up with your doctor as needed. Continue your seizure medications. Disposition Disposition: Home, Self Care
[2022-07-18 22:29] LABS: Absolute Lymphocyte Count 1.91 X10^3/uL (0.83-4.51); Absolute Neutrophil Count 3.2 X10^3/uL (2.0-7.7); Basophil# 0.05 X10^3/uL; Basophil% 0.8 % (0-1); Eosinophil# 0.22 X10^3/uL; Eosinophils% 3.7 % (0-5); Hematocrit 36.2 % (37-47); Hemoglobin 12.3 g/dL (12.0-15.0); Lymphocyte # 1.91 X10^3/ul (0.83-4.51); Lymphocyte % 32.3 % (19-41); Mean Corpuscular Hgb 32.1 pg (27.0-32.0); Mean Corpuscular Volume 94.5 fL (81-99); Mean Platelet Vol. 10.1 fl (6.2-12.0); Monocyte% 8.4 % (0-10); NRBC Flagged by Analyzer 0 % (0-5); Neutrophil # 3.22 X10^3/uL (2.7-7.7); Neutrophil % 54.5 % (47-70); Platelet Count 202 K/mm3 (150-450); RBC Distribution Width CV 13.6 % (11.6-14.6); RBC Distribution Width SD 47.1 fl (35.1-43.9); Red Blood Count 3.83 M/mm3 (4.2-5.4); White Blood Count 5.9 K/mm3 (4.4-11.0)
[2022-07-18 22:43] LABS: Anion Gap 5 (5-15); BUN 11 mg/dL (7-18); BUN/Creat Ratio 12.3 RATIO (10-20); Calcium,Total 8.7 mg/dL (8.5-10.1); Chloride 112 mmol/L (98-107); Creatinine, Serum 0.89 mg/dL (0.55-1.02); EST Glomerular Filtration Rate 74 mL/min (>60); Est Glom Filt Rate - Afr Amer 89 mL/min (>60); Glucose 93 mg/dL (74-106); Potassium 4.1 mmol/L (3.5-5.1); Sodium Level 141 mmol/L (136-145)
[2022-07-18 23:00] VITALS: BP 103/69; PULSE 72; RESP 16
== END 2022-07-18 23:06 | disposition home or self-care (01) ==
PROVIDERS: Emergency Provider Emergency Medicine; Visit Provider Emergency Medicine
DX: G40.909 Epilepsy, unspecified, not intractable, without status epilepticus (principal); F17.210 Nicotine dependence, cigarettes, uncomplicated
CPT/HCPCS: 80048; 85025; 99284; A4216

== ENCOUNTER 2022-11-18 19:14 | Emergency (ER) | payer MEDICAID, SELFPAY ==
[2022-11-18 19:15] VITALS: BP 121/69; PULSE 72; RESP 14; TEMP 36.1; O2SAT 100; BMI 22.6
--- NOTE | 2022-11-18 19:57 | EDS_ITS ---
HPI HPI - Female History of Present Illness Chief Complaint: Complaint Informant: patient Narrative Narrative: Patient complains primarily of urinary symptoms. She states she had some pain in the lower pelvis on Friday. But she has had a hysterectomy. She still has an ovary in place. Its not hurting really now. But then she noticed that she is having frequent urination. She has dysuria with this. She does have darker color. She has not noticed a significant odor. She does not have back or flank pain now or in any time. She is not having nausea or vomiting. Bowel habits are normal. No discharge. She has had inter stitial cystitis but states that this feels different. She has also had UTIs and that is what this feels like. [facility] Medical History Anxiety Bladder disease Depression Frequency of micturition Hematuria Migraine headache Seizure Smoker Urgency of urination Urinary tract infection Wears dentures Home Medications topiramate 200 mg tablet 200 mg PO DAILY 11/10/16 [History Last Taken 11/10/16] lacosamide 200 mg tablet (Vimpat) 200 mg PO BID 04/24/20 [History Last Taken Unknown] topiramate 200 mg tablet 400 mg PO QHS 04/24/20 [History Last Taken Unknown] epinephrine 0.3 mg/0.3 mL injection, auto-injector 0.3 mg (0.3 mL) IM X1 PRN Anaphylaxis ##2 12/06/20 [Rx Last Taken Unknown] onabotulinumtoxinA 100 unit solution for injection (Botox) 100 unit subcut X1 12/17/21 [History Last Taken Unknown] sumatriptan succinate 25 mg tablet (Imitrex) 25 mg PO Q2H PRN Headache 12/17/21 [History Last Taken Unknown] cephalexin 500 mg capsule mg 07/18/22 [History Last Taken Unknown] solifenacin 10 mg tablet 10 mg PO DAILY 07/18/22 [History Last Taken Unknown] Allergy/AdvReac Type Severity Reaction Status Date / Time clarithromycin [From Biaxin] Allergy Hives Verified 11/18/22 19:36 Penicillins Allergy Hives Verified 11/18/22 19:36 venom-honey bee Allergy Hives Verified 11/18/22 19:36 [bee venom (honey bee)] Surgical History History of History of cholecystectomy History of hysterectomy Social History Smoking Status: Current every day smoker tobacco type: cigarettes ROS ROS ED Constitutional Constitutional ED: Denies chills, fever(s) or subjective ENT ENT ED: Denies rhinorrhea or sore throat Cardiovascular Cardiovascular: Denies chest pain Respiratory/Chest Respiratory/Chest: Denies cough Gastrointestinal Gastrointestinal: Denies nausea or vomiting Genitourinary Genitourinary ED: Reports dysuria and urinary frequency; Denies hematuria Musculoskeletal Musculoskeletal: Denies neck pain Integumentary Denies rash Neurologic Neurologic: Denies paresthesias Hematologic/Lymphatic Hematologic/Lymphatic: Denies lymphadenopathy Allergic/Immunologic Allergic/Immunologic ED: Denies urticaria EXAM Physical Exam Narrative Exam Narrative: Patient awake alert no acute distress. Sitting comfortably in bed. HEENT shows moist mucous membranes Neck is supple. Lungs are clear bilaterally. Saturations are normal at 100% on room air showing no hypoxia. Heart is regular. No murmur gallop or rub. Abdomen has normal bowel sounds. Soft nondistended. I am not getting any tenderness including no suprapubic tenderness or lower pelvic inguinal area tenderness. No mass. shows no suprapubic tenderness. No CVA tenderness or rashes. Extremities show no edema or cords. Neurologically she is awake alert and appropriate. Const Vital Signs: 11/18/22 19:15 11/18/22 21:16 Temperature 97 F L Temperature Source Temporal Pulse Rate 72 Respiratory Rate 14 15 Blood Pressure 121/69 H Blood Pressure Mean 86 Pulse Ox 100 Oxygen Delivery Method Room Air Room Air MDM MDM MDM Narrative Medical decision making narrative: Patient's urine looks clear. I looked at on the counter also. The final results show clear urine with no nitrites. She has 0-5 white cells. 0 red cells. 0 bacteria. Only 25 leukocyte Estrace. Patient has a history of interstitial cystitis. My suspicion is that this is the source of her symptoms. Her exam shows really benign abdomen. She is eating drinking moving the bowels no discharge. At this point I do not think we need to initiate antibiotics. I will send the urine for culture and I explained this to the patient. If that shows infection we will certainly change treatment. She is comfortable with this plan. Lab Data Labs: Laboratory Results - last 24 hr 11/18/22 20:05 Urine Color Yellow Urine Clarity Clear Urine pH 6.0 Ur Specific [place] 1.015 Urine Protein 15 H Urine Glucose (UA) Normal Urine Ketones Negative Urine Occult Blood Negative Urine Nitrite Negative Urine Bilirubin Negative Urine Urobilinogen Normal Ur Leukocyte Esterase 25 H Urine RBC 0 SEEN Urine WBC 0-5 SEEN Ur Squamous Epith Cells 0-5 SEEN Urine Bacteria 0 SEEN Urine Mucus 0 SEEN Discharge Plan Triage Chief Complaint: Complaint ED Provider: Cedrick Ventura Dx/Rx/DC Orders Clinical Impression: Dysuria Instructions: ED Dysuria, Uncertain Cause (Adult) Prescriptions: No Action topiramate 200 MG tablet 200 mg PO DAILY topiramate 200 MG tablet 400 mg PO QHS lacosamide [Vimpat] 200 MG tablet 200 mg PO BID epinephrine 0.3 MG syringe 0.3 mg IM X1 PRN (Reason: Anaphylaxis) Qty: 2 0RF Botox 100 unit Recon Soln 100 unit subcut X1 Rx Instructions: Q 3 MONTHS FOR OLIVER sumatriptan succinate [Imitrex] 25 mg Tablet 25 mg PO Q2H PRN (Reason: Headache) cephalexin 500 mg capsule solifenacin 10 mg tablet 10 mg PO DAILY Label Comments: take 1 tablet by mouth once daily IN THE MORNING WITH BREAKFAST Primary Care Provider: Shalini Varner Referrals: Shalini Varner DO [Primary Care Provider] - 1-2 Days if not improving Disposition Disposition: Home, Self Care
[2022-11-18 20:12] LABS: Bacteria 0 SEEN /hpf (None Seen); Mucous, Urine 0 SEEN /hpf (<or=2+); Red Blood Cells-Urine 0 SEEN /hpf (0-5)
[2022-11-18 20:35] LABS: Color, Urine Yellow (Yellow); Glucose, Dipstick Normal (Normal); Ketone-Dipstick Negative (Negative); Leukocyte Esterase-Dipstick 25 /ul (Negative); Nitrite-Dipstick Negative (Negative); Occult Blood-Urine Negative /ul (Negative); Protein-Dipstick 15 mg/dl (Negative); Specific Gravity, Urine 1.015 (1.002-1.030); Urine Bilirubin Dipstick Negative (Negative); Urine Clarity Clear (Clear); Urine Urobilinogen Normal (Normal)
[2022-11-18 20:46] LABS: Squamous Epithelial Cells - UA 0-5 SEEN /hpf (5-10); White Blood Cells 0-5 SEEN /hpf (0-5)
[2022-11-18 21:16] VITALS: RESP 15
[2022-11-18 22:00] VITALS: RESP 17
== END 2022-11-18 22:00 | disposition home or self-care (01) ==
PROVIDERS: Emergency Provider Emergency Medicine; Visit Provider Emergency Medicine
DX: R30.0 Dysuria (principal); G40.909 Epilepsy, unspecified, not intractable, without status epilepticus; F17.210 Nicotine dependence, cigarettes, uncomplicated; Z90.710 Acquired absence of both cervix and uterus; G43.909 Migraine, unspecified, not intractable, without status migrainosus; Z79.899 Other long term (current) drug therapy
CPT/HCPCS: 81001; 87086; 87088; 99282

== ENCOUNTER 2022-12-10 15:21 | Emergency (ER) | payer MEDICAID, SELFPAY ==
[2022-12-10 15:23] VITALS: BP 97/68; PULSE 77; RESP 16; TEMP 36.7; O2SAT 100; BMI 23.7
--- NOTE | 2022-12-10 15:44 | EDS_ITS ---
HPI History of Present Illness Chief Complaint: Seizure Detail of Chief Complaint: Generalized tonic-clonic seizure witnessed by coworkers Informant: patient and EMS Limited: other (Postictal) Onset/Context/Timing Onset: Today Context: Sudden Onset Timing: Intermittent (Per EMS report duration of seizure was 8 minutes) Quality: Tonic-clonic Location: Occurred at work Current Severity: Gone Maximum Severity: Severe Worsened by: Recent illness Relieved by: Not applicable Associated Symptoms Associated Symptoms: Under the weather Narrative Narrative: Patient is a 42-year-old woman with known seizure disorder who sees Dr. Faraz Barrera. Her last seizure was 3 months ago. She states she appears to be prone when she has an illness. She believes has a sinus infection. She states her symptoms started on Friday. She denies headache, visual, ocular auditory symptoms. Denies sore throat. She does Report mild nasal congestion. She she does complain of neck pain. She denies paresthesia, anesthesia or motor weakness upper or lower extremity. She denies cardiac or respiratory symptoms. She denies nausea, vomiting or diarrhea. She denies dysuria, frequency, urgency or hematuria. She reports compliance with her medication. She does smoke about half pack per day. She denies all use or drug use. She is on Botox for migraine headaches. She takes Vimpat which is not a readily available level that can be obtained at [facility]. Prior similar symptoms: Yes Recent Illness/Hospitalization: No [facility] Medical History Anxiety Bladder disease Depression Frequency of micturition Hematuria Migraine headache Seizure Smoker Urgency of urination Urinary tract infection Wears dentures Home Medications topiramate 200 mg tablet 200 mg PO DAILY 11/10/16 [History Last Taken 11/10/16] lacosamide 200 mg tablet (Vimpat) 200 mg PO BID 04/24/20 [History Last Taken Unknown] topiramate 200 mg tablet 400 mg PO QHS 04/24/20 [History Last Taken Unknown] epinephrine 0.3 mg/0.3 mL injection, auto-injector 0.3 mg (0.3 mL) IM X1 PRN Anaphylaxis ##2 12/06/20 [Rx Last Taken Unknown] onabotulinumtoxinA 100 unit solution for injection (Botox) 100 unit subcut X1 12/17/21 [History Last Taken Unknown] sumatriptan succinate 25 mg tablet (Imitrex) 25 mg PO Q2H PRN Headache 12/17/21 [History Last Taken Unknown] cephalexin 500 mg capsule mg 07/18/22 [History Last Taken Unknown] solifenacin 10 mg tablet 10 mg PO DAILY 07/18/22 [History Last Taken Unknown] Allergy/AdvReac Type Severity Reaction Status Date / Time clarithromycin [From Biaxin] Allergy Hives Verified 12/10/22 15:22 Penicillins Allergy Hives Verified 12/10/22 15:22 venom-honey bee Allergy Hives Verified 12/10/22 15:22 [bee venom (honey bee)] Surgical History History of History of cholecystectomy History of hysterectomy Social History (Updated 12/10/22 @ 15:[address] Fahad Hooker MD) household members: none Smoking Status: Current every day smoker tobacco type: cigarettes alcohol intake: current alcohol intake frequency: holidays/special occasions only substance use type: does not use ROS ROS ED Constitutional Constitutional ED: Denies chills, fever(s), subjective, sweats or weight loss Eyes Eyes: Denies blurry vision, change in vision or diplopia ENT ENT ED: Reports rhinorrhea; Denies ear pain or sore throat Cardiovascular Cardiovascular: Denies chest pain, orthopnea, palpitations or paroxysmal nocturnal dyspnea Respiratory/Chest Respiratory/Chest: Denies cough, dyspnea, dyspnea on exertion, orthopnea or paroxysmal nocturnal dyspnea Gastrointestinal Gastrointestinal: Reports other Details: There is no incontinence of stool. ; Denies abdominal pain, diarrhea, melena, nausea or vomiting Genitourinary Genitourinary ED: Reports other Details: There is no incontinence ; Denies dysuria, hematuria or urinary frequency Musculoskeletal Musculoskeletal: Reports neck pain; Denies arthralgias, back pain or myalgias Integumentary Denies abscess, Abrasions or rash Neurologic Neurologic: Denies headache(s), paresthesias or weakness Endocrine Endocrinology: Denies cold intolerance or heat intolerance Hematologic/Lymphatic Hematologic/Lymphatic: Reports systems reviewed and no addt'l complaints, except as documented EXAM Physical Exam Const Vital Signs: 12/10/22 15:23 12/10/22 18:38 Temperature 98.1 F Temperature Source Oral Pulse Rate 77 66 Respiratory Rate 16 20 H Blood Pressure 97/68 92/53 L Blood Pressure Mean 77 66 Pulse Ox 100 98 Oxygen Delivery Method Room Air Room Air Positive well nourished and well developed General Appearance ED: well developed and NAD; Negative for cyanotic, diaphoretic or pallor HEENT Reports moist mucous membranes HEENT Narrative: Head is atraumatic normocephalic. Ears normal. External auditory canal normal. TMs normal. Nares patent with slight discharge. She complains of tenderness over the frontal area. She denies tenderness over the maxillary or ethmoid region. Posterior pharynx unremarkable. Uvula is midline. Eyes PERRL and EOMs intact bilaterally General Eye ED: Negative for pale conjunctiva or scleral icterus Neck no lymphadenopathy, supple and no JVD Chest Wall inspection of chest normal and palpation of chest normal Resp normal respiratory effort and clear to auscultation bilaterally Cardio regular rate, regular rhythm, S1 normal heart sound, S2 normal heart sound and no murmurs GI normal to inspection, nondistended, normoactive bowel sounds, non-tender, non- distended and no masses; Negative for hepatosplenomegaly Back/Spine no CVA tenderness Extremity normal to inspection General Extremety ED: Negative for edema or tenderness General Extremity: Negative for edema Neuro oriented x3, CN's II-XII intact bilaterally and no sensory deficits noted Neuro Narrative: DTR 1+ bicep, brachialis, tricep, patella and ankle. There is no clonus or Babinski sign. There is no dysmetria. Sensorium / Orientation: alert Motor Exam: strength 5/5 throughout Psych mental status grossly normal Skin no rashes or lesions noted, no wounds and skin turgor normal General Skin Exam: Negative for jaundice or pallor MDM MDM MDM Narrative Medical decision making narrative: Since patient alert but awake she may still be slightly postictal. Will obtain basic metabolic panel to assess electrolytes. Will observe. She will need a ride home. Prior records were reviewed. Her last seizure was 3 months ago. She is followed by Dr. Faraz Barrera. History & Record Review Additional record(s) reviewed:: Prior outpatient record, Prior ED visit and Prior labs Lab Data Attestation: I reviewed the patient's lab results. Lab results narrative: CBC is unremarkable. Basic metabolic panel is unremarkable. Labs: Laboratory Results - last 24 hr 12/10/22 12/10/22 17:05 17:05 WBC 6.4 RBC 4.23 Hgb 13.6 Hct 39.5 MCV 93.4 MCH 32.2 H MCHC 34.4 RDW Std Deviation 46.0 H RDW Coeff of Bob 13.4 Plt Count 298 MPV 9.8 Immature Gran % (Auto) 0.500 Neut % (Auto) 57.9 Lymph % (Auto) 30.8 [place] % (Auto) 7.6 Eos % (Auto) 2.3 Baso % (Auto) 0.9 Absolute Neuts (auto) 3.7 Absolute Lymphs (auto) 1.98 Nucleated RBC % 0 Sodium 139 Potassium 4.0 Chloride 115 H Carbon Dioxide 24.0 Anion Gap 0 L BUN 7 Creatinine 0.69 Estim Creat Clear Calc 98.42 Est GFR (MDRD) Af Amer 119 Est GFR (MDRD) Non-Af 98 BUN/Creatinine Ratio 10.1 Glucose 79 Calcium 8.5 Treatment and Re-Evaluation :: Since unable to obtain levels patient was discharged home to follow-up with Dr. Barrera. Work-up was unremarkable. Discharge Plan Triage Chief Complaint: Seizure ED Provider: Fahad Hooker Dx/Rx/DC Orders Clinical Impression: Breakthrough seizure, Systemic viral illness Instructions: ED Seizure, Recurrent (Adult), ED Viral Syndrome (Adult) Prescriptions: No Action topiramate 200 MG tablet 200 mg PO DAILY topiramate 200 MG tablet 400 mg PO QHS lacosamide [Vimpat] 200 MG tablet 200 mg PO BID epinephrine 0.3 MG syringe 0.3 mg IM X1 PRN (Reason: Anaphylaxis) Qty: 2 0RF Botox 100 unit Recon Soln 100 unit subcut X1 Rx Instructions: Q 3 MONTHS FOR OLIVER sumatriptan succinate [Imitrex] 25 mg Tablet 25 mg PO Q2H PRN (Reason: Headache) cephalexin 500 mg capsule solifenacin 10 mg tablet 10 mg PO DAILY Label Comments: take 1 tablet by mouth once daily IN THE MORNING WITH BREAKFAST Primary Care Provider: Shalini Varner Referrals: Shalini Varner DO [Primary Care Provider] - Faraz Barrera MD [Non-Staff] - 1 Week Disposition Disposition: Home, Self Care
[2022-12-10 17:22] LABS: Absolute Lymphocyte Count 1.98 X10^3/uL (0.83-4.51); Absolute Neutrophil Count 3.7 X10^3/uL (2.0-7.7); Basophil# 0.06 X10^3/uL; Basophil% 0.9 % (0-1); Eosinophil# 0.15 X10^3/uL; Eosinophils% 2.3 % (0-5); Hematocrit 39.5 % (37-47); Hemoglobin 13.6 g/dL (12.0-15.0); Lymphocyte # 1.98 X10^3/ul (0.83-4.51); Lymphocyte % 30.8 % (19-41); Mean Corp Hgb Conc 34.4 g/dL (32-36); Mean Corpuscular Hgb 32.2 pg (27.0-32.0); Mean Corpuscular Volume 93.4 fL (81-99); Mean Platelet Vol. 9.8 fl (6.2-12.0); Monocyte# 0.49 X10^3/uL; Monocyte% 7.6 % (0-10); NRBC Flagged by Analyzer 0 % (0-5); Neutrophil # 3.71 X10^3/uL (2.7-7.7); Neutrophil % 57.9 % (47-70); Platelet Count 298 K/mm3 (150-450); RBC Distribution Width CV 13.4 % (11.6-14.6); Red Blood Count 4.23 M/mm3 (4.2-5.4); White Blood Count 6.4 K/mm3 (4.4-11.0)
[2022-12-10 17:35] LABS: Anion Gap 0 (5-15); BUN 7 mg/dL (7-18); BUN/Creat Ratio 10.1 RATIO (10-20); Calcium,Total 8.5 mg/dL (8.5-10.1); Chloride 115 mmol/L (98-107); Creatinine, Serum 0.69 mg/dL (0.55-1.02); EST Glomerular Filtration Rate 98 mL/min (>60); Est Glom Filt Rate - Afr Amer 119 mL/min (>60); Estimated Creatinine Clearance 98.42 ml/min; Glucose 79 mg/dL (74-106); Sodium Level 139 mmol/L (136-145)
[2022-12-10 18:38] VITALS: BP 92/53; PULSE 66; RESP 20; O2SAT 98
[2022-12-10 19:10] VITALS: BP 96/60; PULSE 62; RESP 18; O2SAT 100
== END 2022-12-10 19:12 | disposition home or self-care (01) ==
PROVIDERS: Emergency Provider Emergency Medicine; Visit Provider Emergency Medicine
DX: R56.9 Unspecified convulsions (principal); B34.9 Viral infection, unspecified; F17.210 Nicotine dependence, cigarettes, uncomplicated; G43.909 Migraine, unspecified, not intractable, without status migrainosus; R09.81 Nasal congestion
CPT/HCPCS: 80048; 85025; 99285; A4216

== ENCOUNTER 2023-01-23 11:26 | Emergency (ER) | payer MEDICAID, SELFPAY ==
[2023-01-23 11:27] VITALS: BP 110/71; PULSE 85; RESP 14; TEMP 36.9; O2SAT 99; BMI 21.4
--- NOTE | 2023-01-23 11:34 | ED.VIS.LOWEX ---
HPI History of Present Illness Chief Complaint: Lower Extremity Injury Informant: patient Narrative Narrative: Blunt injury this morning to the outside/peroneal aspect of the left ankle, accidentally hitting the corner of her bed. It really hurt to begin with, now it is still sore and radiating midway up her lateral left leg. Has been able to bear weight but with pain. She denies any twisting, fall, other injury, numbness, tingling, weakness. PFSH PFSH Medical History Anxiety Bladder disease Depression Frequency of micturition Hematuria Migraine headache Seizure Smoker Urgency of urination Urinary tract infection Wears dentures Home Medications topiramate 200 mg tablet 200 mg PO BREAKFAST 11/10/16 [History Last Taken 11/10/16] lacosamide 200 mg tablet (Vimpat) 200 mg PO BID 04/24/20 [History Last Taken Unknown] topiramate 200 mg tablet 400 mg PO QHS 04/24/20 [History Last Taken Unknown] solifenacin 10 mg tablet 10 mg PO DAILY 07/18/22 [History Last Taken Unknown] Allergy/AdvReac Type Severity Reaction Status Date / Time clarithromycin [From Biaxin] Allergy Hives Verified 01/23/23 11:28 Penicillins Allergy Hives Verified 01/23/23 11:28 venom-honey bee Allergy Hives Verified 01/23/23 11:28 [bee venom (honey bee)] Surgical History History of History of cholecystectomy History of hysterectomy Social History household members: none Smoking Status: Current every day smoker tobacco type: cigarettes alcohol intake: current alcohol intake frequency: holidays/special occasions only substance use type: does not use ROS ROS ED Constitutional Constitutional ED: Denies chills or fever(s) Musculoskeletal Musculoskeletal: Reports extremity pain; Denies neck pain Integumentary Denies Abrasions, rash or wounds Neurologic Neurologic: Denies paresthesias or weakness EXAM Physical Exam Const Vital Signs: 01/23/23 11:27 Temperature 98.5 F Temperature Source Temporal Pulse Rate 85 Respiratory Rate 14 Blood Pressure 110/71 Blood Pressure Mean 84 Pulse Ox 99 Oxygen Delivery Method Room Air Positive well nourished and well developed General Appearance ED: well developed and NAD Neck full ROM and supple Back/Spine normal ROM and normal to inspection Extremity normal to inspection Extremity Narrative: Small contusion without hematoma anterior aspect of the left lateral malleolus. That area is tender, and she also has tenderness throughout the distal half of the left fibula. At about the midway point laterally/peroneal only, there is a green discolored ecchymotic area that appears old and the patient confirms this. She has no deformities. Full range of motion of the ankle without difficulty, no foot tenderness. No knee tenderness or limitations there. Neuro oriented x3, no focal motor deficits and no sensory deficits noted Sensorium / Orientation: alert Psych mental status grossly normal and thought process normal Skin no wounds Rashes: no rashes MDM MDM MDM Narrative Medical decision making narrative: 2 view x-ray series of the left tibia/fibula were obtained and are negative on my interpretation. Patient reassured, supportive care advised, she was given an ice pack and offered ibuprofen. Radiography Diagnostic Testing: Clinical Impression(s) from Imaging Studies Tibia/Fibula X-Ray 01/23/23 11:45 IMPRESSION: Normal x-ray examination of the tibia and fibula. Electronically Signed: Darwin Barnett MD at 11:57 EDT , Discharge Plan Triage Chief Complaint: Lower Extremity Injury ED Provider: Antione Hernandez Dx/Rx/DC Orders Clinical Impression: Contusion of ankle, left Instructions: ED Contusion, Lower Extremity Prescriptions: No Action topiramate 200 MG tablet 200 mg PO BREAKFAST topiramate 200 MG tablet 400 mg PO QHS lacosamide [Vimpat] 200 MG tablet 200 mg PO BID solifenacin 10 mg tablet 10 mg PO DAILY Label Comments: take 1 tablet by mouth once daily IN THE MORNING WITH BREAKFAST Primary Care Provider: Shalini Varner Referrals: Shalini Varner, [Primary Care Provider] - As Needed Disposition Disposition: Home, Self Care
--- NOTE | 2023-01-23 11:45 | RAD_ITS ---
STUDY: X-RAY - LEFT TIBIA AND FIBULA REASON FOR EXAM: Female, 42 years old. Injury. Pain. TECHNIQUE: 2 view(s) of the tibia and fibula were obtained. COMPARISON: None. FINDINGS: Normal visualized tibia. Normal visualized fibula. The soft tissue structures are unremarkable. RAD/Tibia & Fibula 2 Views IMPRESSION: Normal x-ray examination of the tibia and fibula. Electronically Signed: Darwin Barnett MD at 11:57 EDT ,
[2023-01-23] MEDS: Ibuprofen 600 MG Tablet PO (12:19)
== END 2023-01-23 12:20 | disposition home or self-care (01) ==
PROVIDERS: Emergency Provider Emergency Medicine; Visit Provider Emergency Medicine
DX: S90.02XA Contusion of left ankle, initial encounter (principal); G40.909 Epilepsy, unspecified, not intractable, without status epilepticus; F17.210 Nicotine dependence, cigarettes, uncomplicated; W22.03XA Walked into furniture, initial encounter; Z79.899 Other long term (current) drug therapy; Z90.49 Acquired absence of other specified parts of digestive tract; Z90.710 Acquired absence of both cervix and uterus
CPT/HCPCS: 73590; 99282

== ENCOUNTER 2023-04-28 10:55 | Emergency (ER) | payer SELFPAY ==
[2023-04-28 10:55] VITALS: BP 107/62; PULSE 72; RESP 16; TEMP 36.6; O2SAT 99; BMI 21.9
--- NOTE | 2023-04-28 11:37 | EX.ED.DYSGE1 ---
HPI History of Present Illness Chief Complaint: Seizure Informant: patient Onset/Context/Timing Onset: Today Context: Sudden Onset Timing: Intermittent and Lasts (Couple of minutes) Quality: Shaking Location: Generalized patient Worsened by: Nothing Relieved by: Nothing Narrative Narrative: Patient presents with a seizure that occurred today. Patient states that she has a history of seizures. Patient states she has been compliant with her medications and has not missed any doses. Patient states that she was at work when she had her seizure. Patient states coworkers told her it lasted a couple of minutes. Coworker states that she was shaking all over. Coworkers became concerned because she had some cyanosis of her lips during the seizure. Patient denies biting her tongue. Patient denies any incontinence of bowel or bladder. Patient admits to some stiffness in her back and neck muscles. Patient denies any recent fevers or chills. Patient states she is starting to feel better. [facility] Medical History Anxiety Bladder disease Depression Frequency of micturition Hematuria Migraine headache Seizure Smoker Urgency of urination Urinary tract infection Wears dentures Home Medications topiramate 200 mg tablet 200 mg PO BREAKFAST 11/10/16 [History Last Taken 11/10/16] lacosamide 200 mg tablet (Vimpat) 200 mg PO BID 04/24/20 [History Last Taken Unknown] topiramate 200 mg tablet 400 mg PO QHS 04/24/20 [History Last Taken Unknown] solifenacin 10 mg tablet 10 mg PO DAILY 07/18/22 [History Last Taken Unknown] Allergy/AdvReac Type Severity Reaction Status Date / Time clarithromycin [From Biaxin] Allergy Hives Verified 04/28/23 11:02 Penicillins Allergy Hives Verified 04/28/23 11:02 venom-honey bee Allergy Hives Verified 04/28/23 11:02 [bee venom (honey bee)] Surgical History History of History of cholecystectomy History of hysterectomy Social History household members: none Smoking Status: Current every day smoker tobacco type: cigarettes alcohol intake: current alcohol intake frequency: holidays/special occasions only substance use type: does not use ROS ROS ED Constitutional Constitutional ED: Denies chills or fever(s) Eyes Eyes: Denies blurry vision or change in vision ENT ENT ED: Denies rhinorrhea or sore throat Cardiovascular Cardiovascular: Reports chest pain; Denies palpitations Respiratory/Chest Respiratory/Chest: Denies cough or dyspnea Gastrointestinal Gastrointestinal: Denies nausea or vomiting Genitourinary Genitourinary ED: Denies dysuria or hematuria Musculoskeletal Musculoskeletal: Reports back pain and neck pain Integumentary Denies abscess or rash Neurologic Neurologic: Reports headache(s); Denies weakness Allergic/Immunologic Allergic/Immunologic ED: Denies mouth swelling or urticaria EXAM Physical Exam Const Vital Signs: 04/28/23 10:55 Temperature 97.8 F Temperature Source Temporal Pulse Rate 72 Respiratory Rate 16 Blood Pressure 107/62 Blood Pressure Mean 77 Pulse Ox 99 Oxygen Delivery Method Room Air Positive well nourished and well developed General Appearance ED: well developed and NAD HEENT Reports moist mucous membranes Neck supple and no JVD Resp normal respiratory effort and clear to auscultation bilaterally Cardio regular rate, regular rhythm and no murmurs GI normal to inspection, nondistended, normoactive bowel sounds and non-tender Palpation: soft Extremity normal to inspection General Extremety ED: Negative for edema or tenderness General Extremity: Negative for edema Neuro oriented x3, CN's II-XII intact bilaterally and no sensory deficits noted Sensorium / Orientation: alert Motor Exam: strength 5/5 throughout Psych mental status grossly normal Skin no rashes or lesions noted MDM MDM MDM Narrative Medical decision making narrative: Differential includes breakthrough seizure, intracranial bleeding, electrolyte abnormality, and dehydration. CT scan of the brain will be obtained to assess for intracranial bleeding. CBC will be obtained to assess for leukocytosis and anemia. Basic metabolic profile will be obtained to assess for electrolyte abnormality and renal function. We are unable to assess for levels of her antiepileptic medications. Lab Data Attestation: I reviewed the patient's lab results. Lab results narrative: CBC was reviewed and was within normal limits. Basic metabolic profile was reviewed and was within normal limits. Labs: Laboratory Results - last 24 hr 04/28/23 11:55 WBC 4.1 L RBC 4.02 L Hgb 13.0 Hct 38.3 MCV 95.3 MCH 32.3 H MCHC 33.9 RDW Std Deviation 46.1 H RDW Coeff of Bob 13.1 Plt Count 218 MPV 10.2 Immature Gran % (Auto) 0.500 Neut % (Auto) 48.5 Lymph % (Auto) 36.7 [place] % (Auto) 8.1 Eos % (Auto) 4.7 Baso % (Auto) 1.5 H Absolute Neuts (auto) 2.0 Absolute Lymphs (auto) 1.49 Nucleated RBC % 0 Sodium 141 Potassium 4.0 Chloride 115 H Carbon Dioxide 23.0 Anion Gap 3 L BUN 8 Creatinine 0.80 Estim Creat Clear Calc 84.88 Est GFR (MDRD) Af Amer 100 Est GFR (MDRD) Non-Af 83 BUN/Creatinine Ratio 10.0 Glucose 73 L Calcium 8.5 Radiography Diagnostic Testing: CT scan of the brain was obtained. There is no acute intracranial abnormality. There is partial opacification of the ethmoid sinuses, worse on the left. This was interpreted by the radiologist and was also independently reviewed by myself. Treatment and Re-Evaluation :: Seizure precautions were maintained. Patient had no more seizure activity here in the emergency department. Patient was advised of her findings. Patient was instructed to drink plenty of fluids. Patient was instructed to continue her medications as previously prescribed. Patient was instructed to follow-up with her primary care physician and neurologist in 5 to 7 days. Patient was instructed return if worse in any way. Patient understood and was agreeable with the plan. All questions were answered. Discharge Plan Triage Chief Complaint: Seizure ED Provider: Coy Ferrera Dx/Rx/DC Orders Clinical Impression: Breakthrough seizure Instructions: ED Seizure, Recurrent (Adult) Prescriptions: No Action topiramate 200 MG tablet 200 mg PO BREAKFAST topiramate 200 MG tablet 400 mg PO QHS lacosamide [Vimpat] 200 MG tablet 200 mg PO BID solifenacin 10 mg tablet 10 mg PO DAILY Patient Comments: take 1 tablet by mouth once daily IN THE MORNING WITH BREAKFAST Primary Care Provider: Shalini Varner Referrals: Shalini Varner DO [Primary Care Provider] - 5-7 Days Disposition Disposition: Home, Self Care
--- NOTE | 2023-04-28 11:42 | CT_ITS ---
STUDY: CT BRAIN WITHOUT CONTRAST REASON FOR EXAM: Female, 42 years old. Seizure RADIATION DOSAGE (If Supplied By Facility): CTDIvol = ( 44.99 ) mGy, DLP = ( 779.24 ) mGycm TECHNIQUE: Transaxial CT imaging of the brain was performed without administration of intravenous contrast material. Individualized dose optimization techniques were used for this CT. COMPARISON: Comparison is made with prior study dated April 24, 2020. FINDINGS: Normal soft tissue structures. Normal calvarium. Normal size ventricles and extra-axial spaces for the patient''s age. Normal white matter tracts of the cerebral hemispheres. Normal basal ganglia and thalami. Normal brainstem. Normal cerebellum. There is no intracranial hemorrhage. There are no findings of an acute ischemic infarction. Partial opacification of the ethmoid sinuses more prominent on the left side. CT/Brain/Head without Contrast IMPRESSION: Normal unenhanced CT scan of the brain. Partial opacification of the ethmoid sinuses more prominent on the left side. Electronically Signed: Nikolas Macdonald MD at 12:54 EDT ,
[2023-04-28] MEDS: 0.9% Normal Saline 1,000 ML 1000 ML IV (11:50)
[2023-04-28 12:12] LABS: Absolute Lymphocyte Count 1.49 X10^3/uL (0.83-4.51); Basophil# 0.06 X10^3/uL; Basophil% 1.5 % (0-1); Eosinophil# 0.19 X10^3/uL; Eosinophils% 4.7 % (0-5); Hematocrit 38.3 % (37-47); Lymphocyte # 1.49 X10^3/ul (0.83-4.51); Lymphocyte % 36.7 % (19-41); Mean Corp Hgb Conc 33.9 g/dL (32-36); Mean Corpuscular Hgb 32.3 pg (27.0-32.0); Mean Corpuscular Volume 95.3 fL (81-99); Mean Platelet Vol. 10.2 fl (6.2-12.0); Monocyte# 0.33 X10^3/uL; Monocyte% 8.1 % (0-10); NRBC Flagged by Analyzer 0 % (0-5); Neutrophil # 1.97 X10^3/uL (2.7-7.7); Neutrophil % 48.5 % (47-70); Platelet Count 218 K/mm3 (150-450); RBC Distribution Width CV 13.1 % (11.6-14.6); RBC Distribution Width SD 46.1 fl (35.1-43.9); Red Blood Count 4.02 M/mm3 (4.2-5.4); White Blood Count 4.1 K/mm3 (4.4-11.0)
[2023-04-28 12:26] LABS: Anion Gap 3 (5-15); BUN 8 mg/dL (7-18); Calcium,Total 8.5 mg/dL (8.5-10.1); Chloride 115 mmol/L (98-107); EST Glomerular Filtration Rate 83 mL/min (>60); Est Glom Filt Rate - Afr Amer 100 mL/min (>60); Estimated Creatinine Clearance 84.88 ml/min; Glucose 73 mg/dL (74-106); Sodium Level 141 mmol/L (136-145)
[2023-04-28 14:11] VITALS: BP 107/79; PULSE 67; RESP 16; O2SAT 100
== END 2023-04-28 14:13 | disposition home or self-care (01) ==
PROVIDERS: Emergency Provider Emergency Medicine; Visit Provider Emergency Medicine
DX: R56.9 Unspecified convulsions (principal); F17.210 Nicotine dependence, cigarettes, uncomplicated; R35.0 Frequency of micturition; Z79.899 Other long term (current) drug therapy
CPT/HCPCS: 70450; 80048; 85025; 96360; 96361; 99285; J7030; A4216

== ENCOUNTER 2023-05-10 03:38 | Emergency (ER) | payer OTHER, SELFPAY ==
[2023-05-10 03:42] VITALS: BP 101/66; PULSE 70; RESP 18; TEMP 36.1; O2SAT 100; BMI 22.1
--- NOTE | 2023-05-10 04:09 | EDS_ITS ---
HPI History of Present Illness Chief Complaint: Back Informant: patient Onset/Context/Timing Onset: Hours (3) Context: - (Awoke with symptoms) Timing: Continuous Quality: Aching Location: Lumbar Current Severity: Moderate Maximum Severity: Moderate Worsened by: improves with Movement Relieved by: Remaining Still Associated Symptoms Associated Symptoms: Negative for Numbness, Tingling, Radiation to Right Leg, Radiation to Left Leg, Abdominal Pain, Unable to Ambulate, Urinary Retention, Urinary Incontinence, Constipation or Fecal Incontinence Narrative Narrative: Patient awoke around 1 AM with low back pain that hurts more with movement. When she went to bed she was not having pain. 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 She has had back discomfort in the past but nothing significant like this, no history of sciatica or back surgery. She denies any abdominal pain, weakness or numbness in her legs, bowel or bladder dysfunction, or radiation into the legs. [facility] Medical History Anxiety Bladder disease Depression Frequency of micturition Hematuria Migraine headache Seizure Smoker Urgency of urination Urinary tract infection Wears dentures Home Medications topiramate 200 mg tablet 200 mg PO BREAKFAST 11/10/16 [History Last Taken 11/10/16] lacosamide 200 mg tablet (Vimpat) 200 mg PO BID 04/24/20 [History Last Taken Unknown] topiramate 200 mg tablet 400 mg PO QHS 04/24/20 [History Last Taken Unknown] solifenacin 10 mg tablet 10 mg PO DAILY 07/18/22 [History Last Taken Unknown] cyclobenzaprine 10 mg tablet 10 mg PO TID PRN Muscle Spasm #20 TABLETS 05/10/23 [Rx Last Taken Unknown] levetiracetam 500 mg tablet 500 mg PO Q12H 05/10/23 [History Last Taken Unknown] naproxen 500 mg tablet 500 mg PO BID PRN #14 tabs 05/10/23 [Rx Last Taken Unknown] tramadol 50 mg tablet 50 mg PO Q6H PRN pain 3 days #10 tabs 05/10/23 [Rx Last Taken Unknown] Allergy/AdvReac Type Severity Reaction Status Date / Time clarithromycin [From Biaxin] Allergy Hives Verified 05/10/23 03:39 Penicillins Allergy Hives Verified 05/10/23 03:39 venom-honey bee Allergy Hives Verified 05/10/23 03:39 [bee venom (honey bee)] Surgical History History of History of cholecystectomy History of hysterectomy Social History household members: none Smoking Status: Current every day smoker tobacco type: cigarettes alcohol intake: current alcohol intake frequency: holidays/special occasions only substance use type: does not use ROS ROS ED Constitutional Constitutional ED: Denies chills or fever(s) Gastrointestinal Gastrointestinal: Denies abdominal pain, constipation, fecal incontinence, nausea or vomiting Genitourinary Genitourinary ED: Reports other Details: no urinary retention ; Denies abdominal discomfort or urinary incontinence Musculoskeletal Musculoskeletal: Reports as per HPI and back pain; Denies neck pain Integumentary Denies rash or wounds Neurologic Neurologic: Denies headache(s), paresthesias or weakness EXAM Physical Exam Const Vital Signs: 05/10/23 03:42 Temperature 97.0 F L Temperature Source Oral Pulse Rate 70 Respiratory Rate 18 Blood Pressure 101/66 Blood Pressure Mean 77 Pulse Ox 100 Oxygen Delivery Method Room Air Positive well nourished and well developed General Appearance ED: well developed and NAD HEENT Negative for trauma or tenderness Eyes PERRL and EOMs intact bilaterally Neck full ROM and supple GI normal to inspection, nondistended, normoactive bowel sounds, soft to palpation and non-tender Back/Spine normal to inspection Lumbar Spine / Lower Back: ROM limited, paraspinal muscle tenderness bilateral (lumbar; nontender at SI joints and buttocks/sciatic notch) and straight leg raise negative bilaterally; Negative for lumbar spinal tenderness Extremity normal to inspection, full ROM and no pedal edema Neuro oriented x3 and no sensory deficits noted Sensorium / Orientation: alert Motor Exam: strength 5/5 throughout and clonus absent Deep Tendon Reflexes: Rt Patellar (L4): 2+, Lt Patellar (L4): 2+, Rt Ankle (S1): 2+ and Lt Ankle (S1): 2+ Deep Tendon Reflexes Back: Rt Patellar (L4): 2+, Lt Patellar (L4): 2+, Rt Ankle (S1): 2+ and Lt Ankle (S1): 2+ Plantar Reflex: Downgoing: bilateral Psych mental status grossly normal and thought process normal Skin no rashes or lesions noted and no wounds MDM MDM MDM Narrative Medical decision making narrative: History and exam are consistent with myofascial strain. I suspect this is probably due to overuse and repeated lifting at work and being on her feet all day. She agrees that that makes sense. There are no red flags here she does not have a history of cancer. I reviewed her [facility] report, which shows no narcotics. We will treat her with symptomatic treatment/medications along with some short course prescriptions. Discharge Plan Triage Chief Complaint: Back ED Provider: Antione Hernandez Dx/Rx/DC Orders Clinical Impression: Acute lumbar myofascial strain Instructions: ED Back Sprain/Strain Prescriptions: New cyclobenzaprine [cyclobenzaprine] 10 mg tablet 10 mg PO TID PRN (Reason: Muscle Spasm) Qty: 20 0RF tramadol 50 mg tablet 50 mg PO Q6H PRN (Reason: pain) 3 Days Qty: 10 0RF naproxen 500 mg tablet 500 mg PO BID PRN Qty: 14 0RF No Action topiramate 200 MG tablet 200 mg PO BREAKFAST topiramate 200 MG tablet 400 mg PO QHS lacosamide [Vimpat] 200 MG tablet 200 mg PO BID solifenacin 10 mg tablet 10 mg PO DAILY Patient Comments: take 1 tablet by mouth once daily IN THE MORNING WITH BREAKFAST levetiracetam 500 mg tablet 500 mg PO Q12H Patient Comments: take 1 tablet by mouth every morning and 1 tablet by mouth before BEDTIME Primary Care Provider: Shalini Varner Referrals: Shalini Varner, [Primary Care Provider] - 1 Week if not improving Disposition Disposition: Home, Self Care
[2023-05-10] MEDS: traMADol 50 MG Tablet PO (04:16)
[2023-05-10] MEDS: Ketorolac 60 MG/2 ML Vial IM (04:16)
[2023-05-10] MEDS: Orphenadrine 60 MG/2 ML Ampul IM (04:16)
== END 2023-05-10 04:49 | disposition home or self-care (01) ==
PROVIDERS: Emergency Provider Emergency Medicine; Visit Provider Emergency Medicine
DX: S39.012A Strain of muscle, fascia and tendon of lower back, initial encounter (principal); R56.9 Unspecified convulsions; F17.210 Nicotine dependence, cigarettes, uncomplicated; G43.909 Migraine, unspecified, not intractable, without status migrainosus; Z79.899 Other long term (current) drug therapy; X50.9XXA Other and unspecified overexertion or strenuous movements or postures, initial encounter; Y93.89 Activity, other specified; Y92.89 Other specified places as the place of occurrence of the external cause
CPT/HCPCS: 96372; 99283

== ENCOUNTER 2023-10-07 12:27 | Emergency (ER) | payer OTHER, SELFPAY ==
[2023-10-07 12:27] VITALS: BP 110/69; PULSE 63; RESP 16; TEMP 36.1; O2SAT 100; BMI 23.9
[2023-10-07] MEDS: Ketorolac 15 MG/ML Vial IV (13:30)
--- NOTE | 2023-10-07 13:30 | EX.ED.DYSGE1 ---
HPI <Sandhya Carroll RN - Last Filed: 10/07/23 15:26> History of Present Illness Chief Complaint: Flank Pain Informant: patient Onset/Context/Timing Onset: Yesterday Timing: Continuous Current Severity: 12/09 Maximum Severity: 04/10 Associated Symptoms Associated Symptoms: Malaise Narrative Narrative: Patient presents to ED via personal vehicle for left lower quadrant pain radiating to left lower back and malaise. Reports symptoms started yesterday. Patient also reports nausea in the evening of 10/05/2023 which is now resolved. Patient referred by the [facility] where she was seen today. Reports had a urine dip which was reported to her as normal. Patient also reports bowel movement yesterday which was normal. Denies diarrhea or vomiting. Patient with partial hysterectomy. Patient also with remote history of chlamydia. Patient denies dysuria, urinary frequency, or hematuria. Denies vaginal discharge. Prior similar symptoms: No Recent Illness/Hospitalization: No PFSH <Sandhya Carroll RN - Last Filed: 10/07/23 15:26> PFSH Medical History Anxiety Bladder disease Depression Frequency of micturition Hematuria Migraine headache Seizure Smoker Urgency of urination Urinary tract infection Wears dentures Home Medications topiramate 200 mg tablet 200 mg PO BREAKFAST 11/10/16 [History Last Taken 11/10/16] lacosamide 200 mg tablet (Vimpat) 200 mg PO BID 04/24/20 [History Last Taken Unknown] topiramate 200 mg tablet 400 mg PO QHS 04/24/20 [History Last Taken Unknown] solifenacin 10 mg tablet 10 mg PO DAILY 07/18/22 [History Last Taken Unknown] cyclobenzaprine 10 mg tablet 10 mg PO TID PRN Muscle Spasm #20 TABLETS 05/10/23 [Rx Last Taken Unknown] levetiracetam 500 mg tablet 500 mg PO Q12H 05/10/23 [History Last Taken Unknown] naproxen 500 mg tablet 500 mg PO BID PRN #14 tabs 05/10/23 [Rx Last Taken Unknown] tramadol 50 mg tablet 50 mg PO Q6H PRN pain 3 days #10 tabs 05/10/23 [Rx Last Taken Unknown] nitrofurantoin monohydrate/macrocrystals 100 mg capsule 100 mg PO Q12 #10 CAPSULES 10/07/23 [Rx Last Taken Unknown] phenazopyridine 200 mg tablet (Pyridium) 200 mg PO TID 6 doses #6 tabs 10/07/23 [Rx Last Taken Unknown] Allergy/AdvReac Type Severity Reaction Status Date / Time clarithromycin [From Biaxin] Allergy Hives Verified 05/10/23 03:39 Penicillins Allergy Hives Verified 05/10/23 03:39 venom-honey bee Allergy Hives Verified 05/10/23 03:39 [bee venom (honey bee)] Surgical History History of History of cholecystectomy History of hysterectomy Social History household members: none Smoking Status: Current every day smoker tobacco type: cigarettes alcohol intake: current alcohol intake frequency: holidays/special occasions only substance use type: does not use ROS <Sandhya Carroll RN - Last Filed: 10/07/23 15:26> ROS ED Constitutional Constitutional ED: Denies chills or fever(s) Cardiovascular Cardiovascular: Denies chest pain Respiratory/Chest Respiratory/Chest: Denies cough or dyspnea Gastrointestinal Gastrointestinal: Reports abdominal pain; Denies constipation, diarrhea or nausea Genitourinary Genitourinary ED: Denies dysuria, hematuria or urinary frequency Musculoskeletal Musculoskeletal: Denies arthralgias or myalgias Neurologic Neurologic: Denies headache(s) EXAM <Sandhya Carroll RN - Last Filed: 10/07/23 15:26> Physical Exam Const Vital Signs: 10/07/23 12:27 Temperature 96.9 F L Temperature Source Temporal Pulse Rate 63 Respiratory Rate 16 Blood Pressure 110/69 Blood Pressure Mean 82 Pulse Ox 100 Oxygen Delivery Method Room Air Positive well nourished and well developed General Appearance ED: well developed HEENT Reports moist mucous membranes Eyes PERRL Chest Wall inspection of chest normal Resp normal respiratory effort and clear to auscultation bilaterally Cardio regular rate, regular rhythm, S1 normal heart sound and S2 normal heart sound GI normal to inspection, nondistended, normoactive bowel sounds and non-distended GI Narrative: Tenderness mid lower abdomen over bladder and left lower quadrant. Palpation: tender Extremity normal to inspection Neuro oriented x3 Sensorium / Orientation: alert Motor Exam: strength 5/5 throughout Psych mental status grossly normal Skin no rashes or lesions noted <Dr. Fahad Hooker MD - Last Filed: 10/07/23 15:33> Physical Exam Const Vital Signs: 10/07/23 12:27 Temperature 96.9 F L Temperature Source Temporal Pulse Rate 63 Respiratory Rate 16 Blood Pressure 110/69 Blood Pressure Mean 82 Pulse Ox 100 Oxygen Delivery Method Room Air MDM <Sandhya Carroll RN - Last Filed: 10/07/23 15:26> MDM MDM Narrative Medical decision making narrative: Labwork obtained to evaluate for leukocytosis, anemia, and electrolyte derangement. Urinalysis obtained to evaluate for infection/hematuria. History & Record Review Discussion w/independent historian: Patient Additional record(s) reviewed:: No prior records Lab Data Attestation: I reviewed the patient's lab results. Labs: Laboratory Results - last 24 hr 10/07/23 10/07/23 13:33 13:40 WBC 5.7 RBC 4.08 L Hgb 13.4 Hct 38.3 MCV 93.9 MCH 32.8 H MCHC 35.0 RDW Std Deviation 49.3 H RDW Coeff of Bob 14.3 Plt Count 217 MPV 9.7 Immature Gran % (Auto) 0.200 Neut % (Auto) 57.5 Lymph % (Auto) 30.6 [place] % (Auto) 6.7 Eos % (Auto) 3.9 Baso % (Auto) 1.1 H Absolute Neuts (auto) 3.3 Absolute Lymphs (auto) 1.73 Nucleated RBC % 0 Sodium 137 Potassium 3.8 Chloride 113 H Carbon Dioxide 24.0 Anion Gap 0 L BUN 9 Creatinine 0.71 Estim Creat Clear Calc 94.66 Est GFR (MDRD) Af Amer 114 Est GFR (MDRD) Non-Af 94 BUN/Creatinine Ratio 12.6 Glucose 77 Calcium 8.2 L Urine Color Yellow Urine Clarity Clear Urine pH 7.0 Ur Specific [place] 1.010 Urine Protein Negative Urine Glucose (UA) Normal Urine Ketones Negative Urine Occult Blood Negative Urine Nitrite Positive H Urine Bilirubin Negative Urine Urobilinogen Normal Ur Leukocyte Esterase 100 H Urine RBC 0 SEEN Urine WBC 10-25 SEEN Ur Squamous Epith Cells 0-5 SEEN Urine Bacteria 4+ Urine Mucus 0 SEEN Differential Diagnosis Abdominal Pain: Appendicitis and UTI Management Discussion w/another healthcare provider: Other (Dr Hooker, ED Provider) Treatment and Re-Evaluation :: CBC was normal with a white count of 5.7, hemoglobin 13.4. Chemistries revealed a slightly elevated chloride of 113 and calcium 8.2. Urinalysis positive for nitrates leuk esterase. <Dr. Fahad Hooker MD - Last Filed: 10/07/23 15:33> [facility] Narrative Medical decision making narrative: Labwork obtained to evaluate for leukocytosis, anemia, and electrolyte derangement. Urinalysis obtained to evaluate for infection/hematuria. I have personally performed a face to face assessment of the patient and have reviewed the ESTEFANIA Note. I performed a substantive portion of the visit including all aspects of the following. My purvis findings include: History is remarkable for atraumatic left lower quadrant and left back pain. There is no history of trauma. She is status post hysterectomy. She does have a remote history of chlamydia. She denies dyspareunia or vaginal discharge. She denies history of renal ureterolithiasis. She denies flank pain. She denies vomiting or diarrhea. She denies any vaginal symptoms. She denies blood in her urine. She has had slight frequency. Exam is vital signs noted. She is not febrile. HEENT exam is unremarkable. Lungs are clear to auscultation with symmetric breath sounds. Heart is regular. Rate is normal. No murmur, gallop or rub. Abdomen is remarkable suprapubic discomfort. There is no CVA tenderness noted. Medical Decision Making differential diagnosis would include ovarian cyst, diverticulitis, urinary tract infection, doubt pyelonephritis. Doubt obstructing ureteral stone. Other additions or changes: Workup is remarkable for UTI. Patient was treated with Macrobid. She was discharged home in stable condition. Lab Data Attestation: I reviewed the patient's lab results. Lab results narrative: CBC is unremarkable. BMP is unremarkable. Chloride is slightly elevated 113. BUN and creatinine are normal. UA reveals UTI will treat with Macrobid. This would explain her suprapubic discomfort on exam. Labs: Laboratory Results - last 24 hr 10/07/23 10/07/23 13:33 13:40 WBC 5.7 RBC 4.08 L Hgb 13.4 Hct 38.3 MCV 93.9 MCH 32.8 H MCHC 35.0 RDW Std Deviation 49.3 H RDW Coeff of Bob 14.3 Plt Count 217 MPV 9.7 Immature Gran % (Auto) 0.200 Neut % (Auto) 57.5 Lymph % (Auto) 30.6 [place] % (Auto) 6.7 Eos % (Auto) 3.9 Baso % (Auto) 1.1 H Absolute Neuts (auto) 3.3 Absolute Lymphs (auto) 1.73 Nucleated RBC % 0 Sodium 137 Potassium 3.8 Chloride 113 H Carbon Dioxide 24.0 Anion Gap 0 L BUN 9 Creatinine 0.71 Estim Creat Clear Calc 94.66 Est GFR (MDRD) Af Amer 114 Est GFR (MDRD) Non-Af 94 BUN/Creatinine Ratio 12.6 Glucose 77 Calcium 8.2 L Urine Color Yellow Urine Clarity Clear Urine pH 7.0 Ur Specific [place] 1.010 Urine Protein Negative Urine Glucose (UA) Normal Urine Ketones Negative Urine Occult Blood Negative Urine Nitrite Positive H Urine Bilirubin Negative Urine Urobilinogen Normal Ur Leukocyte Esterase 100 H Urine RBC 0 SEEN Urine WBC 10-25 SEEN Ur Squamous Epith Cells 0-5 SEEN Urine Bacteria 4+ Urine Mucus 0 SEEN Discharge Plan Triage Chief Complaint: Flank Pain ED Provider: Fahad Hooker Dx/Rx/DC Orders Clinical Impression: Urinary tract infection, Depression, Acute left-sided low back pain Instructions: ED Cystitis Female Adult Prescriptions: New nitrofurantoin monohyd/m-cryst [nitrofurantoin monohyd/m-cryst] 100 mg capsule 100 mg PO Q12 Qty: 10 0RF phenazopyridine [Pyridium] 200 mg tablet 200 mg PO TID Qty: 6 0RF No Action topiramate 200 MG tablet 200 mg PO BREAKFAST topiramate 200 MG tablet 400 mg PO QHS lacosamide [Vimpat] 200 MG tablet 200 mg PO BID solifenacin 10 mg tablet 10 mg PO DAILY Patient Comments: take 1 tablet by mouth once daily IN THE MORNING WITH BREAKFAST levetiracetam 500 mg tablet 500 mg PO Q12H Patient Comments: take 1 tablet by mouth every morning and 1 tablet by mouth before BEDTIME cyclobenzaprine [cyclobenzaprine] 10 mg tablet 10 mg PO TID PRN (Reason: Muscle Spasm) Qty: 20 0RF tramadol 50 mg tablet 50 mg PO Q6H PRN (Reason: pain) 3 Days Qty: 10 0RF naproxen 500 mg tablet 500 mg PO BID PRN Qty: 14 0RF Primary Care Provider: Shalini Varner Referrals: Shalini Varner, [Primary Care Provider] - 3-5 Days if not improving Disposition Disposition: Home, Self Care
[2023-10-07 13:45] LABS: Mucous, Urine 0 SEEN /hpf (<or=2+); Red Blood Cells-Urine 0 SEEN /hpf (0-5)
[2023-10-07 13:46] LABS: Color, Urine Yellow (Yellow); Glucose, Dipstick Normal (Normal); Ketone-Dipstick Negative (Negative); Leukocyte Esterase-Dipstick 100 /ul (Negative); Nitrite-Dipstick Positive (Negative); Occult Blood-Urine Negative /ul (Negative); Protein-Dipstick Negative (Negative); Urine Bilirubin Dipstick Negative (Negative); Urine Clarity Clear (Clear); Urine Urobilinogen Normal (Normal)
[2023-10-07 13:48] LABS: Absolute Lymphocyte Count 1.73 X10^3/uL (0.83-4.51); Absolute Neutrophil Count 3.3 X10^3/uL (2.0-7.7); Basophil# 0.06 X10^3/uL; Basophil% 1.1 % (0-1); Eosinophil# 0.22 X10^3/uL; Eosinophils% 3.9 % (0-5); Hematocrit 38.3 % (37-47); Hemoglobin 13.4 g/dL (12.0-15.0); Lymphocyte # 1.73 X10^3/ul (0.83-4.51); Lymphocyte % 30.6 % (19-41); Mean Corpuscular Hgb 32.8 pg (27.0-32.0); Mean Corpuscular Volume 93.9 fL (81-99); Mean Platelet Vol. 9.7 fl (6.2-12.0); Monocyte# 0.38 X10^3/uL; Monocyte% 6.7 % (0-10); NRBC Flagged by Analyzer 0 % (0-5); Neutrophil # 3.26 X10^3/uL (2.7-7.7); Neutrophil % 57.5 % (47-70); Platelet Count 217 K/mm3 (150-450); RBC Distribution Width CV 14.3 % (11.6-14.6); RBC Distribution Width SD 49.3 fl (35.1-43.9); Red Blood Count 4.08 M/mm3 (4.2-5.4); White Blood Count 5.7 K/mm3 (4.4-11.0)
[2023-10-07 13:55] LABS: Anion Gap 0 (5-15); BUN 9 mg/dL (7-18); BUN/Creat Ratio 12.6 RATIO (10-20); Calcium,Total 8.2 mg/dL (8.5-10.1); Chloride 113 mmol/L (98-107); Creatinine, Serum 0.71 mg/dL (0.55-1.02); EST Glomerular Filtration Rate 94 mL/min (>60); Est Glom Filt Rate - Afr Amer 114 mL/min (>60); Estimated Creatinine Clearance 94.66 ml/min; Glucose 77 mg/dL (74-106); Potassium 3.8 mmol/L (3.5-5.1); Sodium Level 137 mmol/L (136-145)
[2023-10-07 14:08] LABS: Bacteria 4+ /hpf (None Seen); Squamous Epithelial Cells - UA 0-5 SEEN /hpf (5-10); White Blood Cells 10-25 SEEN /hpf (0-5)
[2023-10-07 15:33] VITALS: BP 138/76; PULSE 64; RESP 16; TEMP 36.4; O2SAT 99
--- NOTE | 2023-10-07 15:41 | ED.RN ---
PT WAS DC BEFORE ORDERS WERE PUT IN. PT DID NOT RECEIVE INTIAL DOSE
== END 2023-10-07 15:43 | disposition home or self-care (01) ==
PROVIDERS: Emergency Provider Emergency Medicine; Visit Provider Emergency Medicine
DX: N39.0 Urinary tract infection, site not specified (principal); G40.909 Epilepsy, unspecified, not intractable, without status epilepticus; M54.50 Low back pain, unspecified; F32.A Depression, unspecified; Z90.710 Acquired absence of both cervix and uterus; G43.909 Migraine, unspecified, not intractable, without status migrainosus; Z79.899 Other long term (current) drug therapy; Z90.49 Acquired absence of other specified parts of digestive tract; F17.210 Nicotine dependence, cigarettes, uncomplicated
CPT/HCPCS: 80048; 81001; 85025; 99283

== ENCOUNTER 2024-02-01 09:47 | Emergency (ER) | payer OTHER, SELFPAY ==
[2024-02-01 09:47] VITALS: BP 114/66; PULSE 79; RESP 16; TEMP 36.4; O2SAT 100; BMI 22.9
--- NOTE | 2024-02-01 10:24 | RAD_ITS ---
INDICATION: chest pain EXAMINATION/TECHNIQUE: X-RAY - XR Chest 1 View COMPARISON: No relevant prior comparison study available FINDINGS: LINES/DEVICES: None. LUNGS: No consolidation, edema or effusion. No pneumothorax. MEDIASTINUM AND CARDIOVASCULAR STRUCTURES: Cardiac silhouette not enlarged. Central airways and mediastinal contour are unremarkable. BONES AND SOFT TISSUES: Unremarkable. RAD/Chest 1 View (Portable) IMPRESSION: No radiographic evidence of acute cardiopulmonary disease. Electronically Signed: Clint Connors MD at 11:05 EDT ,
--- NOTE | 2024-02-01 10:24 | EKG12_ITS ---
Test Reason : CP Blood Pressure : / mmHG Vent. Rate : 054 BPM Atrial Rate : 054 BPM P-R Int : 216 ms QRS Dur : 088 ms QT Int : 416 ms P-R-T Axes : 080 -27 065 degrees QTc Int : 394 ms Sinus bradycardia with 1st degree A-V block Low voltage QRS BORDERLINE Confirmed by Santosh Frazier ([id number]), editorial writer GENARO DUNCAN ([id number]) on 02/02/2024 9:17:50 AM Referred By: Confirmed By:Santosh Frazier
[2024-02-01 10:45] LABS: Absolute Lymphocyte Count 1.62 X10^3/uL (0.83-4.51); Absolute Neutrophil Count 1.9 X10^3/uL (2.0-7.7); Basophil# 0.07 X10^3/uL; Basophil% 1.7 % (0-1); Eosinophil# 0.27 X10^3/uL; Eosinophils% 6.4 % (0-5); Hematocrit 40.1 % (37-47); Hemoglobin 13.7 g/dL (12.0-15.0); Lymphocyte # 1.62 X10^3/ul (0.83-4.51); Lymphocyte % 38.3 % (19-41); Mean Corp Hgb Conc 34.2 g/dL (32-36); Mean Corpuscular Hgb 32.4 pg (27.0-32.0); Mean Corpuscular Volume 94.8 fL (81-99); Mean Platelet Vol. 9.7 fl (6.2-12.0); Monocyte% 9.5 % (0-10); NRBC Flagged by Analyzer 0 % (0-5); Neutrophil # 1.87 X10^3/uL (2.7-7.7); Neutrophil % 44.1 % (47-70); Platelet Count 236 K/mm3 (150-450); RBC Distribution Width CV 13.8 % (11.6-14.6); RBC Distribution Width SD 48.2 fl (35.1-43.9); Red Blood Count 4.23 M/mm3 (4.2-5.4); White Blood Count 4.2 K/mm3 (4.4-11.0)
[2024-02-01 10:47] VITALS: BP 104/55; PULSE 52; RESP 11; O2SAT 94
[2024-02-01 11:00] VITALS: BP 99/65; PULSE 51; RESP 16; O2SAT 96
[2024-02-01 11:00] LABS: Anion Gap 10 (5-15); BUN 8 mg/dL (7-18); BUN/Creat Ratio 10.2 RATIO (10-20); Calcium,Total 8.7 mg/dL (8.5-10.1); Chloride 111 mmol/L (98-107); Creatinine, Serum 0.78 mg/dL (0.55-1.02); EST Glomerular Filtration Rate 85 mL/min (>60); Est Glom Filt Rate - Afr Amer 103 mL/min (>60); Estimated Creatinine Clearance 86.16 ml/min; Glucose 80 mg/dL (74-106); Potassium 4.2 mmol/L (3.5-5.1); Sodium Level 144 mmol/L (136-145); Troponin-I HS (w/2H Reflex) 3 pg/mL (3.0-54.0)
--- NOTE | 2024-02-01 11:21 | EX.ED.DYSGE1 ---
HPI <DINA Sorensen - Last Filed: 02/01/24 12:37> History of Present Illness Chief Complaint: Chest Pain Narrative Narrative: Patient is a 43-year-old female with history of epilepsy who has had her last seizure 1 week ago. Patient states that this is normal for her. Patient states that she does see a neurologist. Patient states that she has had a cough for 3 weeks, patient states that the pain in her left side of her chest as well as into her back has been ongoing for the last 3 to 4 days. Patient dates that hurts more with movement, palpation. She was concerned because the pain got more severe. She denies any history of blood clots the legs or lungs, denies any recent travel, leg pain. PFSH <DINA Sorensen - Last Filed: 02/01/24 12:37> [facility] Medical History Anxiety Bladder disease Depression Frequency of micturition Hematuria Migraine headache Seizure Smoker Urgency of urination Urinary tract infection Wears dentures Home Medications ?Medication ?Instructions ?Recorded ?Last Taken ?Type topiramate 200 mg tablet 200 mg PO BREAKFAST 11/10/16 11/10/16 History lacosamide 200 mg tablet (Vimpat) 200 mg PO BID 04/24/20 Unknown History topiramate 200 mg tablet 400 mg PO QHS 04/24/20 Unknown History solifenacin 10 mg tablet 10 mg PO DAILY 07/18/22 Unknown History cyclobenzaprine 10 mg tablet 10 mg PO TID PRN Muscle Spasm #20 05/10/23 Unknown Rx TABLETS levetiracetam 500 mg tablet 500 mg PO Q12H 05/10/23 Unknown History naproxen 500 mg tablet 500 mg PO BID PRN #14 tabs 05/10/23 Unknown Rx tramadol 50 mg tablet 50 mg PO Q6H PRN pain 3 days #10 05/10/23 Unknown Rx tabs nitrofurantoin 100 mg PO Q12 #10 CAPSULES 10/07/23 Unknown Rx monohydrate/macrocrystals 100 mg capsule phenazopyridine 200 mg tablet 200 mg PO TID 6 doses #6 tabs 10/07/23 Unknown Rx (Pyridium) cyclobenzaprine 10 mg tablet 10 mg PO TID PRN Muscle Spasm #20 02/01/24 Unknown Rx TABLETS loratadine 10 mg tablet (Claritin) 10 mg PO DAILY #30 tabs 02/01/24 Unknown Rx Allergy/AdvReac Type Severity Reaction Status Date / Time clarithromycin (From Biaxin) Allergy Hives Verified 02/01/24 09:49 Penicillins Allergy Hives Verified 02/01/24 09:49 venom-honey bee (bee venom Allergy Hives Verified 02/01/24 09:49 (honey bee)) Surgical History History of History of cholecystectomy History of hysterectomy Social History household members: none Smoking Status: Current every day smoker tobacco type: cigarettes alcohol intake: current alcohol intake frequency: holidays/special occasions only substance use type: does not use ROS <DINA Sorensen - Last Filed: 02/01/24 12:37> ROS ED ROS Narrative Constitutional: Negative for fever, chills, weight loss, weakness Eyes: Negative for vision loss, vision change, double vision ENT: Negative for any sore throat, ear pain, congestion Cardiovascular: Negative for any tightness, palpitations. Positive for chest pain Respiratory: Negative for any sputum production, hemoptysis, dyspnea, dyspnea on exertion, orthopnea. Positive for cough Gastrointestinal: Negative for any abdominal pain, nausea, vomiting, diarrhea, constipation, blood in stool, blood in vomit : Negative for any urinary frequency, dysuria, retention, blood in urine Muscle skeletal: Negative for any neck pain, back pain Neurological: Negative for any headache, syncope, dizziness Skin: Negative for any rashes, itching, abrasions, lacerations Psychiatric: Negative for any depression, anxiety, stress, suicidal ideation, homicidal ideation Hematologic: Negative for any excessive bruising, easy bleeding EXAM <DINA Sorensen - Last Filed: 02/01/24 12:37> Physical Exam Narrative Exam Narrative: Vital signs reviewed. HEET: Head normocephalic atraumatic, TMs clear bilaterally. Posterior pharynx is clear, moist mucous membranes. Nares clear bilaterally. Neck: Supple with no lymphadenopathy or tenderness. No signs of meningismus. Cardiac: Regular rate and rhythm no murmurs gallops or rubs, equal peripheral pulses bilaterally. Respiratory: Lungs clear to auscultation bilaterally. Pain to the left side of the chest on palpation, as well as the left shoulder blade. Worse with movement. Abdomen: Soft, nontender, nondistended. No abdominal bruit or pulsatile masses. No hepatosplenomegaly Extremities: No peripheral edema, no signs of gross trauma or deformity. Active full range of motion of all extremities. Neuro: Cranial nerves II through XII intact, no focal neurological deficits. Skin: Clean dry and intact with no rash, purpura, petechiae, vesicles or pustules. Backs/flank: No CVA tenderness, no midline spinal tenderness, no deformity. Psych: Normal mood and affect. No SI, HI or acute psychosis. Const Vital Signs: 02/01/24 09:47 02/01/24 10:47 02/01/24 10:55 Temperature 97.6 F L Temperature Source Temporal Pulse Rate 79 52 L Respiratory Rate 16 11 L Respiratory Pattern Blood Pressure 114/66 104/55 L Blood Pressure Mean 82 71 Pulse Ox 100 94 Oxygen Delivery Method Room Air Room Air Room Air 02/01/24 11:00 02/01/24 11:00 02/01/24 12:00 Temperature Temperature Source Pulse Rate 51 L 57 L Respiratory Rate 16 15 Respiratory Pattern Normal Blood Pressure 99/65 100/62 Blood Pressure Mean 76 74 Pulse Ox 96 98 Oxygen Delivery Method Room Air Room Air 02/01/24 13:00 Temperature 97.4 F L Temperature Source Pulse Rate 57 L Respiratory Rate 16 Respiratory Pattern Blood Pressure 97/57 L Blood Pressure Mean 70 Pulse Ox 99 Oxygen Delivery Method <Dr. Darron Hernandez, DO - Last Filed: 02/01/24 15:40> Physical Exam Const Vital Signs: 02/01/24 09:47 02/01/24 10:47 02/01/24 10:55 Temperature 97.6 F L Temperature Source Temporal Pulse Rate 79 52 L Respiratory Rate 16 11 L Respiratory Pattern Blood Pressure 114/66 104/55 L Blood Pressure Mean 82 71 Pulse Ox 100 94 Oxygen Delivery Method Room Air Room Air Room Air 02/01/24 11:00 02/01/24 11:00 02/01/24 12:00 Temperature Temperature Source Pulse Rate 51 L 57 L Respiratory Rate 16 15 Respiratory Pattern Normal Blood Pressure 99/65 100/62 Blood Pressure Mean 76 74 Pulse Ox 96 98 Oxygen Delivery Method Room Air Room Air 02/01/24 13:00 Temperature 97.4 F L Temperature Source Pulse Rate 57 L Respiratory Rate 16 Respiratory Pattern Blood Pressure 97/57 L Blood Pressure Mean 70 Pulse Ox 99 Oxygen Delivery Method [facility] <Santi EscobarDINA - Last Filed: 02/01/24 12:37> [facility] Lab Data Labs: Laboratory Results - last 24 hr 02/01/24 10:33 WBC 4.2 L RBC 4.23 Hgb 13.7 Hct 40.1 MCV 94.8 MCH 32.4 H MCHC 34.2 RDW Std Deviation 48.2 H RDW Coeff of Bob 13.8 Plt Count 236 MPV 9.7 Immature Gran % (Auto) 0.000 Neut % (Auto) 44.1 L Lymph % (Auto) 38.3 [place] % (Auto) 9.5 Eos % (Auto) 6.4 H Baso % (Auto) 1.7 H Absolute Neuts (auto) 1.9 L Absolute Lymphs (auto) 1.62 Nucleated RBC % 0 Sodium 144 Potassium 4.2 Chloride 111 H Carbon Dioxide 23.0 Anion Gap 10 BUN 8 Creatinine 0.78 Estim Creat Clear Calc 86.16 Est GFR (MDRD) Af Amer 103 Est GFR (MDRD) Non-Af 85 BUN/Creatinine Ratio 10.2 Glucose 80 Calcium 8.7 Troponin I High Sens 3 Radiography Diagnostic Testing: Clinical Impression(s) from Imaging Studies Chest X-Ray 02/01/24 10:24 IMPRESSION: No radiographic evidence of acute cardiopulmonary disease. Electronically Signed: Clint Connors MD at 11:05 EDT , EKG Sinus bradycardia: Attestation: I personally reviewed and interpreted this EKG as follows: Comments: Sinus bradycardia, rate of 54 bpm, GA interval 216 ms, QRS duration 88 ms, no acute ST elevation, no acute infarct noted. Treatment and Re-Evaluation :: Differential diagnosis includes however is not limited to: ACS, RI, pneumonia, muscle spasm, muscle skeletal pain Patient appears to be in no obvious respiratory distress vital signs are stable. Patient presents to the emergency department for left-sided chest pain, left-sided back pain, cough for 3 weeks. Physical examination consistent with more muscle skeletal pain. Patient did receive some basic laboratory values, CBC, BMP was unremarkable, troponin was 3 which is negative. EKG shows sinus bradycardia, no ST elevation. Patient received a two-view chest x-ray inter by ER physician, this showed no radiographic evidence of cardiopulmonary pathology. Patient was given IV fluids, IV Toradol, Lidoderm patch. Patient be reevaluated. On reevaluation, the patient was feeling better. At this time, is no evidence of any ACS, RI, acute cardiopulmonary pathology. Patient will receive Claritin as well as muscle relaxers. She continue take ibuprofen and Tylenol. All questions were answered, patient stable for discharge. She instructed return for any worsening symptoms. <Dr. Darron Hernandez, DO - Last Filed: 02/01/24 15:40> [facility] Narrative Medical decision making narrative: Differential diagnosis includes however is not limited to: ACS, RI, pneumonia, muscle spasm, muscle skeletal pain Patient appears to be in no obvious respiratory distress vital signs are stable. Patient presents to the emergency department for left-sided chest pain, left-sided back pain, cough for 3 weeks. Physical examination consistent with more muscle skeletal pain. Patient did receive some basic laboratory values, CBC, BMP was unremarkable, troponin was 3 which is negative. EKG shows sinus bradycardia, no ST elevation. Patient received a two-view chest x-ray inter by ER physician, this showed no radiographic evidence of cardiopulmonary pathology. Patient was given IV fluids, IV Toradol, Lidoderm patch. Patient be reevaluated. On reevaluation, the patient was feeling better. At this time, is no evidence of any ACS, RI, acute cardiopulmonary pathology. Patient will receive Claritin as well as muscle relaxers. She continue take ibuprofen and Tylenol. All questions were answered, patient stable for discharge. She instructed return for any worsening symptoms. This patient was seen with a PA/MAPPING ANALYST Individually assessed they patient including history and physical. I have reviewed everything on the chart that is available and agree with the documentation provided by the PA/MAPPING ANALYST including discussion about the assessment, treatment plan, discussion, and return precautions. Patient presenting with chest pain on the left as well as the left back. She has been coughing for a few weeks. She denies any trauma. Differential as above. Cardiac workup was obtained and CBC, BMP are normal. High-sensitivity opponent is 3. She was since the patient has been having pain for 3 days I do believe she is a delta troponin. Chest x-ray on my interpretation shows no acute cardiopulmonary process. The radiologist interpretation agrees. EKG shows sinus bradycardia at 54 bpm without sign of ischemic change or ectopy on my interpretation. I do believe the patient's pain is likely musculoskeletal. She also reports to me that she has seasonal allergies may be contributing to her cough although she does not take anything for her allergies. We will start her on Claritin. Will also give her muscle relaxers and she can alternate NSAIDs as needed for pain. Return precautions were discussed. Lab Data Labs: Laboratory Results - last 24 hr 02/01/24 10:33 WBC 4.2 L RBC 4.23 Hgb 13.7 Hct 40.1 MCV 94.8 MCH 32.4 H MCHC 34.2 RDW Std Deviation 48.2 H RDW Coeff of Bob 13.8 Plt Count 236 MPV 9.7 Immature Gran % (Auto) 0.000 Neut % (Auto) 44.1 L Lymph % (Auto) 38.3 [place] % (Auto) 9.5 Eos % (Auto) 6.4 H Baso % (Auto) 1.7 H Absolute Neuts (auto) 1.9 L Absolute Lymphs (auto) 1.62 Nucleated RBC % 0 Sodium 144 Potassium 4.2 Chloride 111 H Carbon Dioxide 23.0 Anion Gap 10 BUN 8 Creatinine 0.78 Estim Creat Clear Calc 86.16 Est GFR (MDRD) Af Amer 103 Est GFR (MDRD) Non-Af 85 BUN/Creatinine Ratio 10.2 Glucose 80 Calcium 8.7 Troponin I High Sens 3 Radiography Diagnostic Testing: Clinical Impression(s) from Imaging Studies Chest X-Ray 02/01/24 10:24 IMPRESSION: No radiographic evidence of acute cardiopulmonary disease. Electronically Signed: Clint Connors MD at 11:05 EDT , Discharge Plan Triage Chief Complaint: Chest Pain ED Midlevel Provider: Santi Escobar ED Provider: Darron Hernandez Dx/Rx/DC Orders Clinical Impression: Cough, Back pain, Chest wall muscle strain Instructions: ED Cough Chronic Uncertain Cause Adult, ED Chest Wall Strain Prescriptions: New cyclobenzaprine 10 mg tablet 10 mg PO TID PRN (Reason: Muscle Spasm) Qty: 20 0RF loratadine [Claritin] 10 mg tablet 10 mg PO DAILY Qty: 30 0RF No Action topiramate 200 MG tablet 200 mg PO BREAKFAST topiramate 200 MG tablet 400 mg PO QHS lacosamide [Vimpat] 200 MG tablet 200 mg PO BID solifenacin 10 mg tablet 10 mg PO DAILY Patient Comments: take 1 tablet by mouth once daily IN THE MORNING WITH BREAKFAST levetiracetam 500 mg tablet 500 mg PO Q12H Patient Comments: take 1 tablet by mouth every morning and 1 tablet by mouth before BEDTIME cyclobenzaprine [cyclobenzaprine] 10 mg tablet 10 mg PO TID PRN (Reason: Muscle Spasm) Qty: 20 0RF tramadol 50 mg tablet 50 mg PO Q6H PRN (Reason: pain) 3 Days Qty: 10 0RF naproxen 500 mg tablet 500 mg PO BID PRN Qty: 14 0RF nitrofurantoin monohyd/m-cryst [nitrofurantoin monohyd/m-cryst] 100 mg capsule 100 mg PO Q12 Qty: 10 0RF phenazopyridine [Pyridium] 200 mg tablet 200 mg PO TID Qty: 6 0RF Primary Care Provider: Shalini Varner Referrals: Shalini Varner DO [Primary Care Provider] - Activity Restrictions/Additional Instructions: Please follow-up outpatient. Print Language: Kosovan Disposition Disposition: Home, Self Care Discharge Date/Time: 02/01/24 13:19
[2024-02-01 12:00] VITALS: BP 100/62; PULSE 57; RESP 15; O2SAT 98
[2024-02-01] MEDS: Lidocaine 5% Patch 1 PATCH TOPICAL (12:19)
[2024-02-01] MEDS: Ketorolac 15 MG/ML Vial IV (12:19)
[2024-02-01 12:36] LABS: Reflex Troponin-HS? (from REC) Y
[2024-02-01 13:00] VITALS: BP 97/57; PULSE 57; RESP 16; TEMP 36.3; O2SAT 99
== END 2024-02-01 13:19 | disposition home or self-care (01) ==
PROVIDERS: Emergency Provider Student in an Organized Health Care Education/Training Program; Visit Provider Student in an Organized Health Care Education/Training Program
DX: G40.909 Epilepsy, unspecified, not intractable, without status epilepticus (principal); F17.210 Nicotine dependence, cigarettes, uncomplicated; R05.9 Cough, unspecified; S29.011A Strain of muscle and tendon of front wall of thorax, initial encounter; M54.9 Dorsalgia, unspecified; Z79.899 Other long term (current) drug therapy; X58.XXXA Exposure to other specified factors, initial encounter
CPT/HCPCS: 71045; 80048; 84484; 85025; 93005; 96374; 99284; A4216

== ENCOUNTER 2024-08-09 17:00 | Outpatient (RCR) | payer SELFPAY ==
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
--- NOTE | 2024-08-09 17:41 | HP.PT.NRP ---
Patient Information Patient Information: ELADIO SANTANA was seen in my office for initial evaluation on 06/07/24. The following Plan of Care was established for this patient: POC Established Initial Frequency: 1x/Week Initial Duration: 2-4 Months Anticipated Interventions Patient/Client Instruction: Educate patient on: Condition, Plan of Care and Risk Factors For the Purpose of:: To improve self management Therapeutic Exercise to Include: Strength training, Body mechanics, Postural training, Flexibilty training, Neuromotor development and Relaxation training For the Purpose of:: To improve muscle performance and motor function, To improve ability to perform ADL's and To increase flexibility/ROM Manual Therapy Techniques to Include: Soft tissue mobilization and Other Comment: PELVIC FLOOR MANUAL THERAPY NEEDED/TOLERATED AND PATIENT AGREEABLE. For the Purpose of:: To improve muscle performance and motor function and To decrease soft tissue restriction Last Seen Last Seen: This patient was last seen in our office . Pertinent comments regarding their Physical therapy will appear below: PATIENT REPORTS HAVING FOLLOW UP WITH DR. GIBBS FRIDAY FOR TEST RESULTS. SHE STATES SHE HAS A TEAR BY HER URETHRA AND SHE HAS TO HAVE SURGERY. SHE IS AWAITING A CALL FOR A SURGERY DATE. PATIENT CANCELLED ALL REMAINING ESTEFANIA'TS. At this point I will be discontinuing this patient from physical therapy. I would be happy to see this patient again in the future if found appropriate by the physician. Thank you! Allison Medellin PT, Cert MDT
== END 2024-08-09 19:00 | disposition home or self-care (01) ==
LOC: PT 17:00
PROVIDERS: Referring Provider Urology; Visit Provider Urology
DX: R39.15 Urgency of urination (principal); R35.0 Frequency of micturition; R35.1 Nocturia
CPT/HCPCS: 97162; 97530

== ENCOUNTER 2024-09-02 07:04 | Day surgery (SDC) | payer SELFPAY ==
--- NOTE | 2024-08-24 14:24 | PAT.ANESEVAL ---
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 When Was Last Pacemaker Check QUESTION #4 FULL TEXT: You/Your Family Experience fever (hyperthermia) with Anesthesia Last Oral Intake Last Oral intake: Last Oral Intake NPO since Meds taken in AM with sips of water? Meds patient instructed to take am of surgery PONV PONV - manager of case management: PONV - manager of case management Female Yes 08/24/24 10:02 HX of Motion Sickness Yes 08/24/24 10:02 HX of N/V After Surgery No 08/24/24 10:02 Non-Smoker No 08/24/24 10:02 Duration of Surgery greater Yes 08/24/24 10:02 than 60 minutes Number of Risk Factors 3 08/24/24 10:02 PONV Score Moderate Risk 08/24/24 10:02 Height & Weight Height & Weight: Anesthesia: Height & Weight Height 5 ft 6 in 02/01/24 09:47 Respiratory Assessment Respiratory Assessment - manager of case management: Respiratory Tract Infection Hx - manager of case management Hx Respiratory Tract Infection No 08/24/24 10:02 STOP Sleep Apnea STOP Sleep Apnea - manager of case management: STOP Sleep Apnea - manager of case management Hx Hypertension No 08/24/24 10:02 Hx Sleep Apnea No 08/24/24 10:02 CPAP BIPAP Do you snore loudly (louder No 08/24/24 10:02 than talking or can be heard Do you often feel tired/ No 08/24/24 10:02 fatigued/ sleepy during daytime? Has anyone observed you stop No 08/24/24 10:02 breathing during sleep? STOP Results Negative 08/24/24 10:02 QUESTION #5 FULL TEXT : Do you snore loudly (louder than talking or can be heard through closed doors)? Tobacco Use History Tobacco Use History - manager of case management: Tobacco Use History - manager of case management Tobacco Use Cigarettes 01/08/21 21:18 Smoking Status Current every day smoker 08/24/24 10:02 Hx Tobacco Use Yes 08/24/24 10:02 Years Smoking Packs Smoked per Day Smoking Cessation Date was within the last 15 years Hx Smoking Cessation Date Hx Smoking Cessation Counseling Hematologic Medial History Hematologic Hx - manager of case management: Hematologic Medical Hx - clinical documentation spec Hx of Blood Transfusion No 08/24/24 10:02 Hx of Transfusion in last 3 No 08/24/24 10:02 Months Date of Last Transfusion (if within last 3 months) Ever experience any problems No 08/24/24 10:02 with transfusion(s)? Specify any problems Hx of Preganancy in last 3 No 08/24/24 10:02 Months Nurse Filling Out Transfusion MGRIFFITH 08/24/24 10:02 & Questions: Date: 08/24/24 08/24/24 10:02 Time: 10:04 08/24/24 10:02 Patient unable to answer at this time (ie. confused, unrespo /Reproduction History /Reproductive History - manager of case management: /Reproductive Hx- manager of case management Hx Now No 08/24/24 10:02 Gestational Age (in weeks): EDC: Hx Hx Para Hx Section SAB No 08/24/24 10:02 [facility] Medical History (Updated 08/24/24 @ 10:12 by Linda Lopez) Wears glasses Hematuria Frequency of micturition Urgency of urination Wears dentures Anxiety Bladder disease Migraine headache Smoker Seizure Depression Home Medications ?Medication ?Instructions ?Recorded ?Last Taken ?Type topiramate 200 mg tablet 200 mg PO BREAKFAST 11/10/16 11/10/16 History lacosamide 200 mg tablet (Vimpat) 200 mg PO BID 04/24/20 Unknown History topiramate 200 mg tablet 400 mg PO QHS 04/24/20 Unknown History levetiracetam 500 mg tablet 500 mg PO Q12H 05/10/23 Unknown History Allergy/AdvReac Type Severity Reaction Status Date / Time clarithromycin (From Biaxin) Allergy Hives Verified 08/24/24 09:58 Penicillins Allergy Hives Verified 08/24/24 09:58 venom-honey bee (bee venom Allergy Hives Verified 08/24/24 09:58 (honey bee)) Surgical History History of History of cholecystectomy History of hysterectomy Social History household members: none Smoking Status: Current every day smoker tobacco type: cigarettes alcohol intake: current alcohol intake frequency: holidays/special occasions only substance use type: does not use Audit: Pertinent Findings Pertinent Findings EKG Perinent findings: February 01, 2024. Sinus bradycardia at 54 bpm. With first-degree AV block Recommendation Anesthesia Recommendation Anesthesia recommendation: OPTIMIZED for anesthesia
[2024-08-26 12:13] LABS: Hematocrit 38.3 % (37-47); Hemoglobin 13.1 g/dL (12.0-15.0); Mean Corp Hgb Conc 34.2 g/dL (32-36); Mean Corpuscular Volume 93.6 fL (81-99); Platelet Count 252 K/mm3 (150-450); RBC Distribution Width SD 48.7 fl (35.1-43.9); Red Blood Count 4.09 M/mm3 (4.2-5.4); White Blood Count 5.5 K/mm3 (4.4-11.0)
[2024-08-26 12:19] LABS: Partial Thromboplast Time 28.5 Seconds (24.1-36.2)
[2024-08-26 12:42] LABS: Anion Gap 4 (5-15); BUN 13 mg/dL (7-18); BUN/Creat Ratio 18.1 RATIO (10-20); Calcium,Total 8.7 mg/dL (8.5-10.1); Chloride 113 mmol/L (98-107); Creatinine, Serum 0.72 mg/dL (0.55-1.02); EST Glomerular Filtration Rate 93 mL/min (>60); Est Glom Filt Rate - Afr Amer 113 mL/min (>60); Glucose 88 mg/dL (74-106); Potassium 3.9 mmol/L (3.5-5.1); Sodium Level 138 mmol/L (136-145)
[2024-09-02] VITALS (9 sets, daily range): BP systolic 95–107; BP diastolic 57–73; PULSE 47–65; RESP 16; TEMP 36.1–37.1; O2SAT 99–100; BMI 24.4
[2024-09-02] MEDS: 0.9% Normal Saline (1000mL) 1,000 ML 15 ML IV (07:40)
--- NOTE | 2024-09-02 08:21 | PCM.PRE.AN2 ---
ASA Classification* ASA Classification ASA Classification: 2 Assessment & Plan Anesthesia* Anesthesia Assessment Anesthesia Assessment: Discussed sedation and/or anesthesia options, risks, benefits, and alternatives with patient/parents/legal guardian/POA. Questions invited. The patient/parents/legal guardian/POA seems to understand and agrees to proceed with anesthesia plan. Reviewed the physical assessment, medical history, allergy history and patient home medications list prior to surgery/procedure/anesthetic and documented any changes. Performed airway and anesthesia risk assessments. Anesthesia Type Anesthesia Type: General Anesthesia Focused Assessment* Temperature: 98.8 F Pulse Rate: 65 Blood Pressure: 99/57 Respiratory Rate: 16 Pulse Ox: 100 Airway Assessment Mouth opens: >3 cm Mallampati Score: II Focused Labs Anesthesia Preop lab: CBC WBC 5.5 K/mm3 (4.4-11.0) 08/26/24 11:40 RBC 4.09 M/mm3 (4.2-5.4) L 08/26/24 11:40 Hgb 13.1 g/dL (12.0-15.0) 08/26/24 11:40 Hct 38.3 % (37-47) 08/26/24 11:40 Plt Count 252 K/mm3 (150-450) 08/26/24 11:40 CHEMISTRY Potassium 3.9 mmol/L (3.5-5.1) 08/26/24 11:40 Sodium 138 mmol/L (136-145) 08/26/24 11:40 BUN 13 mg/dL (7-18) 08/26/24 11:40 Creatinine 0.72 mg/dL (0.55-1.02) 08/26/24 11:40 Glucose 88 mg/dL (74-106) 08/26/24 11:40 POC Glucose 95 mg/dL (70-110) 11/10/16 22:42 TSH 1.01 uIU/mL (0.358-3.74) 05/04/20 11:53 COAG Urine Test Negative Negative 11/05/13 20:20 Pre-Assessment Diagnosis/Proposed Procedure Planned Operative Procedure(s): Cysto, Mid-urethral sling Anesthesia History 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 When Was Last Pacemaker Check QUESTION #4 FULL TEXT: You/Your Family Experience fever (hyperthermia) with Anesthesia Last Oral Intake Last Oral intake: Last Oral Intake NPO since 06:30 09/02/24 07:41 Meds taken in AM with sips of Yes 09/02/24 07:41 water? 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: PONV - vacuum cooker operator Female Yes 08/24/24 10:02 HX of Motion Sickness Yes 08/24/24 10:02 HX of N/V After Surgery No 08/24/24 10:02 Non-Smoker No 08/24/24 10:02 Duration of Surgery greater Yes 08/24/24 10:02 than 60 minutes Number of Risk Factors 3 08/24/24 10:02 PONV Score Moderate Risk 08/24/24 10:02 Height & Weight Height & Weight: Anesthesia: Height & Weight Height 5 ft 6 in 09/02/24 07:41 Weight: 68.6 kg 09/02/24 07:41 Body Mass Index (BMI) 24.4 09/02/24 07:41 Respiratory Assessment Respiratory Assessment - vacuum cooker operator: Respiratory Tract Infection Hx - vacuum cooker operator Hx Respiratory Tract Infection No 08/24/24 10:02 STOP Sleep Apnea STOP Sleep Apnea - vacuum cooker operator: STOP Sleep Apnea - vacuum cooker operator Hx Hypertension No 08/24/24 10:02 Hx Sleep Apnea No 08/24/24 10:02 CPAP BIPAP Do you snore loudly (louder No 08/24/24 10:02 than talking or can be heard Do you often feel tired/ No 08/24/24 10:02 fatigued/ sleepy during daytime? Has anyone observed you stop No 08/24/24 10:02 breathing during sleep? STOP Results Negative 08/24/24 10:02 QUESTION #5 FULL TEXT : Do you snore loudly (louder than talking or can be heard through closed doors)? Tobacco Use History Tobacco Use History - vacuum cooker operator: Tobacco Use History - vacuum cooker operator Tobacco Use Cigarettes 01/08/21 21:18 Smoking Status Current every day smoker 08/24/24 10:02 Hx Tobacco Use Yes 08/24/24 10:02 Years Smoking Packs Smoked per Day Smoking Cessation Date was within the last 15 years Hx Smoking Cessation Date Hx Smoking Cessation Counseling Hematologic Medial History Hematologic Hx - vacuum cooker operator: Hematologic Medical Hx - supervisor telephone information Hx of Blood Transfusion No 08/24/24 10:02 Hx of Transfusion in last 3 No 08/24/24 10:02 Months Date of Last Transfusion (if within last 3 months) Ever experience any problems No 08/24/24 10:02 with transfusion(s)? Specify any problems Hx of Preganancy in last 3 No 08/24/24 10:02 Months Nurse Filling Out Transfusion MGRIFFITH 08/24/24 10:02 & Questions: Date: 08/24/24 08/24/24 10:02 Time: 10:04 08/24/24 10:02 Patient unable to answer at this time (ie. confused, unrespo /Reproduction History /Reproductive History - vacuum cooker operator: /Reproductive Hx- vacuum cooker operator Hx Now No 08/24/24 10:02 Gestational Age (in weeks): EDC: Hx Hx Para Hx Section SAB No 08/24/24 10:02 Active Medications Active Medications: Current Medications Generic Name Dose Route Start Last Admin Trade Name Freq PRN Reason Stop Dose Admin Ciprofloxacin 400 mg in 200 mls @ 200 mls/hr 09/02/24 08:50 Cipro IV 09/02/24 09:49 PREOP ONE Sodium Chloride 1,000 mls @ 15 mls/hr 09/02/24 07:20 09/02/24 07:40 IV 09/07/24 20:39 15 mls/hr .Q48H LOLI Administration Protocol PFS Medical History Wears glasses Hematuria Frequency of micturition Urgency of urination Wears dentures Anxiety Bladder disease Migraine headache Smoker Seizure Depression Home Medications ?Medication ?Instructions ?Recorded ?Last Taken ?Type topiramate 200 mg tablet 200 mg PO BREAKFAST 11/10/16 09/02/24 06:30 History lacosamide 200 mg tablet (Vimpat) 200 mg PO BID 04/24/20 09/02/24 06:30 History topiramate 200 mg tablet 400 mg PO QHS 04/24/20 Unknown History levetiracetam 500 mg tablet 500 mg PO Q12H 05/10/23 09/02/24 06:30 History Allergy/AdvReac Type Severity Reaction Status Date / Time clarithromycin (From Biaxin) Allergy Hives Verified 09/02/24 07:40 Penicillins Allergy Hives Verified 09/02/24 07:40 venom-honey bee (bee venom Allergy Hives Verified 09/02/24 07:40 (honey bee)) Surgical History History of History of cholecystectomy History of hysterectomy Social History household members: none Smoking Status: Current every day smoker tobacco type: cigarettes alcohol intake: current alcohol intake frequency: holidays/special occasions only substance use type: does not use Review of Systems (Anesthesia) ROS Narrative System reviewed and no additional complaints, except as documented.
--- NOTE | 2024-09-02 09:50 | DCINST_ITS ---
Discharge Instructions Diet Discharge Diet: No restrictions Activity Discharge Activity: May Shower (No tub bathing, swimming or hot tubs) May resume sexual activity in: 4 weeks Lifting Restrictions: 5 pounds Additional Activity Instructions:: No exercise, strenuous activity, vacuuming or lifting over 5 pounds Dressing / Incision Call your doctor if your incision/area has: Continuous Slow Oozing, Sudden Increased Bleeding, Increased Pain/ Swelling and Foul Smelling Discharge Call your doctor if you observe: Fever of 101 or Higher, Inability to urinate and Inability to have a bowel movement Follow Up Care Please Follow Up With: Marguerite Guillen MD When: The office will call the patient for follow-up instructions and appointment time. Test Results: Test results from this visit will be discussed in further detail at your follow- up appointment, if applicable. Discharge Plan Admission Attending Provider: Marguerite Guillen Primary Care Provider: Shalini Varner Instructions Print Language: Wallisian Discharge Orders/Prescriptions Prescriptions: New sulfamethoxazole-trimethoprim 800-160 mg tablet 1 tab PO BID 3 Days Qty: 6 0RF oxycodone-acetaminophen 5-325 mg tablet 1 tab PO Q8H PRN PRN (Reason: Pain) 3 Days Qty: 10 0RF Continued topiramate 200 MG tablet 200 mg PO BREAKFAST topiramate 200 MG tablet 400 mg PO QHS lacosamide [Vimpat] 200 MG tablet 200 mg PO BID levetiracetam 500 mg tablet 500 mg PO Q12H Patient Comments: take 1 tablet by mouth every morning and 1 tablet by mouth before BEDTIME Referrals / Follow Up: Shalini Varner DO [Primary Care Provider] - Disposition Disposition (needs filled in before D/C Order can be placed): Home, Self Care
--- NOTE | 2024-09-02 09:54 | OP.PCM_ITS ---
Operative Report (Standard) Operative Information Date of Procedure: 09/02/24 Pre-Operative Diagnosis: Stress urinary incontinence, intrinsic sphincter deficiency Post-Operative Diagnosis: Same Surgery/Procedure Performed: Mid urethral sling insertion, cystourethroscopy margarine churn operator: Yes Weight Loss Sales Consultant: Galdino Peña Tasks completed by ob gyn physician assistant: Retracting Additional assistant center director?: No Type of Anesthesia: General RN Documented Start/Stop Times: Operation Date: 09/02/24 08:50 Case Time Into Pre-Op 09/02/24 07:19 Out of Pre-Op 09/02/24 10:01 Anesthesia Start 09/02/24 10:05 Into Room 09/02/24 10:05 Procedure Start 09/02/24 10:30 Procedure End 09/02/24 10:45 Anesthesia End 09/02/24 10:57 Out of Room 09/02/24 10:57 Into Recovery 09/02/24 10:58 Out of Recovery 09/02/24 11:30 Into Phase II Recovery 09/02/24 11:31 Procedure Start Time: 10:30 Procedure Stop Time: 10:45 Select all DRAINS/GRAFTS/IMPLANTS that apply: None Estimated Blood Loss: 5cc Specimen collected: No Description of surgery: The patient is a 44-year-old female with stress incontinence and intrinsic sphincter deficiency found on urodynamics testing. She presents for mid urethral sling insertion and cystoscopy. Informed consent was obtained. She was taken to the operating room and placed on the operating room table. Anesthesia monitored the head, neck, airway, IV access and vital signs throughout the case. Once anesthesia was apparently administered she was placed into exaggerated dorsolithotomy and Trendelenburg position was prepped and draped in usual sterile fashion. A 16 Irish Smith catheter was inserted and the bladder was drained. The urethra was isolated and injected submucosally for hydrostatic dissection and hemostatic control. A vertical 2 cm midline incision was made and sharp and blunt dissection was performed on either side of the urethra with care being taken to avoid entrance into the urethra or the vaginal mucosa. Using the trocars provided, the Altis mid urethral sling tines were placed into the obturator complexes bilaterally. The sling was positioned using the tensioning suture. It lay flat against the urethra and when it was appropriately positioned, the tensioning suture was cut. The incision was closed using running interlocking 2-0 Vicryl. At this time the patient was taken out of Trendelenburg position and the Smith catheter was removed. The cystoscope was inserted through the urethra under direct visualization into the urinary bladder revealing no evidence of foreign object within the urethra or the urinary bladder. There is no evidence of mass, erythema ulceration or other abnormality identified. The cystoscope was then removed. The patient was awakened and taken to the recovery room in good condition. There were no complications during the procedure. Surgical Findings: Altis mid urethral sling placed close to the bladder neck secondary to history of intrinsic sphincter deficiency. Complications Complications: No Admit VTE Documentation VTE Present on Admission: Yes VTE Mechan Device Prophylaxis: SCD's VTE Pharm Prophylaxis ordered?: No Reason prophylaxis not ordered: Treatment Not Indicated
[2024-09-02] MEDS: Ciprofloxacin 400 MG/200 ML BAG 200 MG IV (10:20)
[2024-09-02] MEDS: Lidocaine 1% /Epi 1:100 (20ml) 20 ML Vial (10:44)
--- NOTE | 2024-09-02 11:00 | PCM.POST.ANE ---
Anesthesia: Postop Eval I Current Vital Signs Temperature: 97.5 F Pulse Rate: 61 Blood Pressure: 105/67 Respiratory Rate: 16 Pulse Ox: 99 Oxygen Delivery Method: Room Air Assessment Airway patent: Yes Spontaneous unlabored respirations: Yes Mental status: Awake and Calm nausea: No Vomiting: No Anesthesia Complication: No Fluid Hydration Crystalloid volume administer (ml): 600 Total IV fluid infused: 600 Progress Note Anesthesia document: Postop Eval 1 completed: Yes
--- NOTE | 2024-09-02 11:55 | POSTOPAN2_ITS ---
Anesthesia Postop Eval I Sum Postop Eval Completion status Anesthesia document: Postop Eval 1 completed: Yes Anesthesia Postop Eval I Summary Anesthesia Postop Eval I Summary: Anesthesia Postop Eval I: Assessment Summary Airway patent Yes 09/02/24 11:01 AUTOPSY PATHOLOGIST.GDOTT Spontaneous unlabored Yes 09/02/24 11:01 AUTOPSY PATHOLOGIST.GDOTT respirations Mental status Awake,Calm 09/02/24 11:01 AUTOPSY PATHOLOGIST.GDOTT nausea No 09/02/24 11:01 AUTOPSY PATHOLOGIST.GDOTT Vomiting No 09/02/24 11:01 AUTOPSY PATHOLOGIST.GDOTT Anesthesia Postop Eval I: Fluid Summary Crystalloid volume administer 600 09/02/24 11:01 AUTOPSY PATHOLOGIST.GDOTT (ml) Colloids volume administered ( ml) Blood Product volume administered (ml) Total IV fluid infused 600 09/02/24 11:01 AUTOPSY PATHOLOGIST.GDOTT Anesthesia Postop Eval I: Summary Notes Anesthesia Complication No 09/02/24 11:01 AUTOPSY PATHOLOGIST.GDOTT Anesthesia Complication Comment: Post-operative progress note Anesthesia: Postop Eval II Evaluation Mental status: Awake and Calm Pain Level: 1 nausea: No Vomiting: No Complications Anesthesia Complication: No
--- NOTE | 2024-09-02 11:55 | PCM.POSTANE2 ---
Anesthesia Postop Eval I Sum Postop Eval Completion status Anesthesia document: Postop Eval 1 completed: Yes Anesthesia Postop Eval I Summary Anesthesia Postop Eval I Summary: Anesthesia Postop Eval I: Assessment Summary Airway patent Yes 09/02/24 11:01 DOCUMENTUM CONSULTANT.GDOTT Spontaneous unlabored Yes 09/02/24 11:01 DOCUMENTUM CONSULTANT.GDOTT respirations Mental status Awake,Calm 09/02/24 11:01 DOCUMENTUM CONSULTANT.GDOTT nausea No 09/02/24 11:01 DOCUMENTUM CONSULTANT.GDOTT Vomiting No 09/02/24 11:01 DOCUMENTUM CONSULTANT.GDOTT Anesthesia Postop Eval I: Fluid Summary Crystalloid volume administer 600 09/02/24 11:01 DOCUMENTUM CONSULTANT.GDOTT (ml) Colloids volume administered ( ml) Blood Product volume administered (ml) Total IV fluid infused 600 09/02/24 11:01 DOCUMENTUM CONSULTANT.GDOTT Anesthesia Postop Eval I: Summary Notes Anesthesia Complication No 09/02/24 11:01 DOCUMENTUM CONSULTANT.GDOTT Anesthesia Complication Comment: Post-operative progress note Anesthesia: Postop Eval II Evaluation Mental status: Awake and Calm Pain Level: 1 nausea: No Vomiting: No Complications Anesthesia Complication: No
[2024-09-02] MEDS: Acetaminophen 325 MG Tablet PO (12:06)
[2024-09-02] MEDS: oxyCODONE 5 MG Tablet PO (12:06)
== END 2024-09-02 13:05 | disposition home or self-care (01) ==
LOC: SDC 07:05 → AC 07:09
PROVIDERS: Anesthesiology; Referring Provider Urology; Visit Provider Urology
PROC: 0TJB8ZZ Inspection of Bladder, Via Natural or Artificial Opening Endoscopic (ICD-10-PCS; CPT 57288; principal; 2024-09-02 08:40)
DX: N39.3 Stress incontinence (female) (male) (principal); N36.42 Intrinsic sphincter deficiency (ISD); R39.15 Urgency of urination; N39.0 Urinary tract infection, site not specified; F17.210 Nicotine dependence, cigarettes, uncomplicated; Z90.49 Acquired absence of other specified parts of digestive tract; Z90.710 Acquired absence of both cervix and uterus
CPT/HCPCS: 57288; 00860; 36415; 80048; 85027; 85730; 87086; 87088; J0744; J2405

== ENCOUNTER 2025-05-05 12:53 | Emergency (ER) | payer SELFPAY ==
[2025-05-05 12:54] VITALS: BP 111/63; PULSE 58; RESP 18; TEMP 36.9; O2SAT 100; BMI 25.7
--- NOTE | 2025-05-05 13:28 | EKG12_ITS ---
Test Reason : CP Blood Pressure : */* mmHG Vent. Rate : 48 BPM Atrial Rate : 48 BPM P-R Int : 212 ms QRS Dur : 98 ms QT Int : 442 ms P-R-T Axes : 78 -28 46 degrees QTcB Int : 394 ms Sinus bradycardia with 1st degree A-V block with Premature atrial complexes Otherwise normal ECG Confirmed by ELIZABETH COTTO, MIHIR ([id number]), health editor GENARO DUNCAN ([id number]) on 05/09/2025 9:01:48 AM Referred By: NORMA/CATIA Confirmed By: MIHIR JOHNSON MD
--- NOTE | 2025-05-05 13:30 | EDS_ITS ---
HPI History of Present Illness Chief Complaint: Cough Detail of Chief Complaint: Cough and chest pain Informant: patient Narrative Narrative: Patient presents to the emergency department with complaint of cough for 1 week. Cough mostly nonproductive. 2 to 3 days ago she developed pain in the front of her chest mostly associated with cough and with breathing. She denies recent travel or surgery. She has had no fever. She denies sick contacts but does work in public places. No history of PE or DVT. She has no cardiac history. She has history of anxiety and depression and seizure disorder. [facility] Medical History TELLY (stress urinary incontinence, female) Wears glasses Hematuria Frequency of micturition Urgency of urination Wears dentures Anxiety Bladder disease Migraine headache Smoker Seizure Depression Home Medications ?Medication ?Instructions ?Recorded ?Last Taken ?Type topiramate 200 mg tablet 200 mg PO BREAKFAST 11/10/16 09/02/24 06:30 History lacosamide 200 mg tablet (Vimpat) 200 mg PO BID 09/02/24 06:30 History topiramate 200 mg tablet 400 mg PO QHS 04/24/20 Unkno wn History levetiracetam 500 mg tablet 500 mg PO Q12H 05/10/23 06:30 History solifenacin 10 mg tablet 10 mg PO QDAY #90 tabs 04/29 Unknown Rx Allergy/AdvReac Type Severity Reaction Status Date / Time clarithromycin (From Biaxin) Allergy Hives Verified 05/05/25 12:55 Penicillins Allergy Hives Verified 05/05/25 12:55 venom-honey bee (bee venom Allergy Hives Verified 05/05/25 12:55 (honey bee)) Surgical History History of History of cholecystectomy History of hysterectomy Social History household members: none Smoking Status: Current every day smoker tobacco type: cigarettes alcohol intake: current alcohol intake frequency: holidays/special occasions only substance use type: does not use ROS ROS ED Review of Systems ROS Unobtainable: other Constitutional Constitutional ED: Reports lethargy; Denies chills, fever(s), sweats or weight loss Eyes Eyes: Denies blurry vision, change in vision or diplopia ENT ENT ED: Denies rhinorrhea or sore throat Cardiovascular Cardiovascular: Reports chest pain; Denies orthopnea or racing heartbeat Respiratory/Chest Respiratory/Chest: Reports cough, dyspnea and dyspnea on exertion; Denies orthopnea or sputum Gastrointestinal Gastrointestinal: Denies abdominal pain, diarrhea, nausea or vomiting Genitourinary Genitourinary ED: Denies dysuria, hematuria or urinary frequency Musculoskeletal Musculoskeletal: Denies arthralgias, back pain, myalgias or neck pain Integumentary Denies abscess, Abrasions or rash Neurologic Neurologic: Denies headache(s) or weakness Psychiatric Psychiatric: Denies anxiety, depression or suicidal thoughts Endocrine Endocrinology: Denies polydipsia, polyphagia or polyuria Hematologic/Lymphatic Hematologic/Lymphatic: Denies easy bleeding, easy bruising or lymphadenopathy Allergic/Immunologic Allergic/Immunologic ED: Denies mouth swelling, tongue swelling or urticaria EXAM Physical Exam Const Vital Signs: 05/05/25 12:54 05/05/25 13:47 05/05/25 13:54 Temperature 98.5 F Temperature Source Oral Pulse Rate 58 L 92 Respiratory Rate 18 16 Respiratory Effort Normal Non-Labored Respiratory Depth Normal Respiratory Pattern Normal Normal Blood Pressure 111/63 Blood Pressure Mean 79 Pulse Ox 100 Oxygen Delivery Method Room Air Room Air 05/05/25 14:03 Temperature Temperature Source Pulse Rate 62 Respiratory Rate 14 Respiratory Effort Respiratory Depth Respiratory Pattern Blood Pressure 94/69 Blood Pressure Mean 77 Pulse Ox 99 Oxygen Delivery Method Positive well nourished and well developed General Appearance ED: well developed and NAD HEENT Reports TM's clear and moist mucous membranes normocephalic and atraumatic; Negative for trauma or tenderness Tympanic Membrane ED: Yes TM's clear Eyes PERRL and EOMs intact bilaterally General Eye ED: Negative for pale conjunctiva or scleral icterus Neck no lymphadenopathy, supple and no JVD General: Negative for tenderness Chest Wall inspection of chest normal and palpation of chest normal Chest: Negative for tenderness Resp normal respiratory effort and No clear to auscultation bilaterally Resp Narrative: Occasional mild faint expiratory wheeze. No accessory muscle use or retractions. Effort and Inspection: Negative for respiratory distress or pain with movement Auscultation: wheezes; Negative for rhonchi or diminished lung sounds Cardio regular rate, regular rhythm, S1 normal heart sound, S2 normal heart sound and no murmurs Peripheral Pulses: pulses 2+ throughout GI normal to inspection, nondistended, normoactive bowel sounds, soft to palpation, non-tender, non-distended and no masses Back/Spine no CVA tenderness and no thoracic nor lumbar tenderness Extremity normal to inspection General Extremety ED: Negative for edema General Extremity: Negative for edema Neuro oriented x3, CN's II-XII intact bilaterally, no sensory deficits noted and gait normal Sensorium / Orientation: awake, alert, oriented to person, oriented to place and oriented to time Motor Exam: strength 5/5 throughout and strength abnormal Psych mental status grossly normal Skin no rashes or lesions noted and no wounds MDM MDM MDM Narrative Medical decision making narrative: Patient presents with a cough and pleuritic chest discomfort. Clinically she looks well. She has no heart history. EKG obtained on arrival showed a sinus rhythm with rate of 48 bpm with first-degree AV block and PACs. In the differential would be viral URI versus pneumonia versus pleurisy or less likely PE. She really does not have significant risk factors for PE other than smoking history. Chest x-ray obtained was unremarkable without evidence for infiltrate or pneumothorax or acute disease process. D-dimer was obtained and was normal. Patient was given DuoNeb aerosol and did have some improvement in symptoms. COVID flu and RSV testing was negative. At this point suspect likely viral URI with pleuritic chest pain which could be related to muscular etiology versus pleurisy. I did treat her with Toradol here and recommended she take ibuprofen for discomfort. I do not feel antibiotics are indicated. Vies to follow-up with primary care physician 3 to 5 days. Advised to return if increasing shortness of breath or condition should worsen anyway. Lab Data Labs: Laboratory Results - last 24 hr 05/05/25 13:03 D-Dimer Quant (PE/DVT) 0.27 Radiography Diagnostic Testing: Clinical Impression(s) from Imaging Studies Chest X-Ray 05/05/25 13:40 IMPRESSION: No Acute Findings. [id number] chest x-ray obtained interpreted by myself as no evidence of infiltrate or pneumothorax or acute disease process. Radiology in agreement. EKG Initial EKG: Attestation: I personally reviewed and interpreted this EKG as follows: Comments: Sinus rhythm with ventricular rate of 48 bpm with first-degree AV block and occasional PACs. Discharge Plan Triage Chief Complaint: Cough ED Provider: Vaishnavi Molina Dx/Rx/DC Orders Clinical Impression: Viral URI, Chest pain, Pleurisy Instructions: ED Chest Pain, Uncertain Cause, ED Pleurisy, ED URI, Viral, No Abx (Adult) Prescriptions: No Action topiramate 200 MG tablet 200 mg PO BREAKFAST topiramate 200 MG tablet 400 mg PO QHS lacosamide [Vimpat] 200 MG tablet 200 mg PO BID levetiracetam 500 mg tablet 500 mg PO Q12H Patient Comments: take 1 tablet by mouth every morning and 1 tablet by mouth before BEDTIME solifenacin 10 mg tablet 10 mg PO QDAY Qty: 90 3RF Primary Care Provider: Shalini Varner Referrals: Shalini Varner, [Primary Care Provider] - 5-7 Days Print Language: Urdu Disposition Disposition: Home, Self Care
--- NOTE | 2025-05-05 13:40 | RAD_ITS ---
PROCEDURE: CHEST 1 VIEW (PORTABLE) 05/05/2025 REASON FOR EXAM: COUGH TECHNIQUE: Frontal view of the chest. COMPARISON: None FINDINGS: Hardware: None Heart: The heart size is normal. Lungs: The lungs are clear. Bones: The bones are unremarkable. Other: RAD/Chest 1 View (Portable) IMPRESSION: No Acute Findings. Reading [id number]
[2025-05-05 13:47] VITALS: O2SAT 98
[2025-05-05 13:54] VITALS: PULSE 92; RESP 16
[2025-05-05 14:03] VITALS: BP 94/69; PULSE 62; RESP 14; O2SAT 99
[2025-05-05 14:03] LABS: D-Dimer Quantitative (DVT/PE) 0.27 FEU/ug/m (0.27-0.49)
[2025-05-05] MEDS: Ketorolac 30 MG/ML Syringe IV (14:28)
[2025-05-05 14:45] VITALS: BP 99/71; PULSE 75; RESP 16; TEMP 36.9; O2SAT 98
[2025-05-05] MEDS: Albuterol Sulfate 8 gm Inhaler (60 puffs) 2 PUFF INHALATION (14:45)
== END 2025-05-05 14:46 | disposition home or self-care (01) ==
PROVIDERS: Emergency Provider Emergency Medicine; Visit Provider Emergency Medicine
DX: J06.9 Acute upper respiratory infection, unspecified (principal); G40.909 Epilepsy, unspecified, not intractable, without status epilepticus; R09.1 Pleurisy; R07.9 Chest pain, unspecified; F41.9 Anxiety disorder, unspecified; Z90.710 Acquired absence of both cervix and uterus; F17.210 Nicotine dependence, cigarettes, uncomplicated; Z90.49 Acquired absence of other specified parts of digestive tract
CPT/HCPCS: 71045; 85379; 87631; 93005; 94640; 96374; 99283; A4216

== ENCOUNTER 2025-06-09 19:23 | Emergency (ER) | payer SELFPAY ==
[2025-06-09 19:24] VITALS: BP 116/48; PULSE 65; RESP 18; TEMP 36.6; O2SAT 100; BMI 26.2
--- NOTE | 2025-06-09 20:10 | RAD_ITS ---
PROCEDURE: LEFT WRIST MIN 3 VIEWS; HAND MIN 3 VIEWS 06/09/2025 REASON FOR EXAM: INJURY; INJURY - 5TH DIGIT TECHNIQUE: Procedure Code: RADWR; BJ Modality: DX Procedure: WRIST MIN 3 VIEWS; HAND MIN 3 VIEWS Laterality: Left COMPARISON: None. FINDINGS: No acute fracture or dislocation. Alignment is anatomic. Preserved joint spaces. No aggressive osseous lesion. No marked soft tissue swelling or radiopaque foreign body. RAD/Wrist min 3 Views IMPRESSION: No acute fracture or dislocation. Reading Location: [id number]
--- NOTE | 2025-06-09 20:10 | RAD_ITS ---
PROCEDURE: LEFT WRIST MIN 3 VIEWS; HAND MIN 3 VIEWS 06/09/2025 REASON FOR EXAM: INJURY; INJURY - 5TH DIGIT TECHNIQUE: Procedure Code: RADWR; BJ Modality: DX Procedure: WRIST MIN 3 VIEWS; HAND MIN 3 VIEWS Laterality: Left COMPARISON: None. FINDINGS: No acute fracture or dislocation. Alignment is anatomic. Preserved joint spaces. No aggressive osseous lesion. No marked soft tissue swelling or radiopaque foreign body. RAD/Hand Min 3 Views IMPRESSION: No acute fracture or dislocation. Reading Location: [id number]
--- NOTE | 2025-06-09 20:35 | EX.ED.UPPERE ---
HPI History of Present Illness Chief Complaint: Upper Extremity Injury Narrative Narrative: 44-year-old female past medical history of epilepsy, [id number], presents with injury to her left hand mainly her fifth digit, hand, and wrist that she sustained on Friday, 5 days ago. She states that she was playing kickball with her family and went to catch the ball when it struck her left hand. She has noticed swelling and bruising mainly over fifth digit with range of motion limited secondary to pain. She states that the pain is in her fifth digit and in her left hand radiating up towards her wrist. She has not noted any deformity. She took Tylenol earlier today. 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 [facility] Medical History Pelvic and perineal pain TELLY (stress urinary incontinence, female) Wears glasses Hematuria Frequency of micturition Urgency of urination Wears dentures Anxiety Bladder disease Migraine headache Smoker Seizure Depression Home Medications ?Medication ?Instructions ?Recorded ?Last Taken ?Type topiramate 200 mg tablet 200 mg PO BREAKFAST 11/10/16 09/02/24 06:30 History lacosamide 200 mg tablet (Vimpat) 200 mg PO BID 04/24/20 09/02/24 06:30 History levetiracetam 500 mg tablet 500 mg PO Q12H 05/10/23 09/02/24 06:30 History sumatriptan succinate 50 mg tablet 50 mg PO PRN 05/18/25 Unknown History oxybutynin chloride 10 mg 10 mg PO DAILY 06/09/25 Unknown History tablet,extended release 24 hr Allergy/AdvReac Type Severity Reaction Status Date / Time clarithromycin (From Biaxin) Allergy Hives Verified 06/09/25 19:25 Penicillins Allergy Hives Verified 06/09/25 19:25 venom-honey bee (bee venom Allergy Hives Verified 06/09/25 19:25 (honey bee)) Family History no significant family his Surgical History History of History of cholecystectomy History of hysterectomy Social History household members: none Smoking Status: Current every day smoker tobacco type: cigarettes alcohol intake: current alcohol intake frequency: holidays/special occasions only substance use type: does not use ROS ROS ED ROS Narrative Review of systems is positive for left hand pain, swelling, and discoloration of fifth digit. Denies other injury. Pain radiates towards wrist but no pain in the wrist itself. EXAM Physical Exam Narrative Exam Narrative: GCS 15. ABCs intact. Cardiovascular examination regular rate and rhythm. Lungs clear to auscultation bilaterally. Abdomen soft and nontender. Focused examination of the left hand reveals palpable radial pulse. There is slight ecchymosis and discoloration diffusely to the left fifth digit proximal phalanx, but no crepitance. No bony tenderness of the wrist. Mild tenderness to palpation along fifth metacarpal. No obvious deformity. Good, brisk capillary refill. Const Vital Signs: 06/09/25 19:24 Temperature 98 F Temperature Source Oral Pulse Rate 65 Respiratory Rate 18 Blood Pressure 116/48 L Blood Pressure Mean 70 Pulse Ox 100 Oxygen Delivery Method Room Air MDM MDM MDM Narrative Medical decision making narrative: The differential diagnosis includes but not limited to left fifth finger/hand contusion versus fracture versus sprain. She is able to flex and extend her left fifth digit, but range of motion is limited secondary to pain. She could have underlying tendon or ligamentous injury. She declines any oral analgesics here in the emergency department. X-rays were obtained of the left hand and the left wrist and interpreted by myself independently. I see no evidence of acute fracture. Hence, I feel she probably has more of a hand contusion/finger contusion. I reviewed the radiology report of the x-rays of the hand and of the left wrist and there is no evidence of acute fracture, confirming my independent interpretation. At this point in time, she was offered a Velcro wrist splint. She will continue ice and elevation at home. [id number] medications as needed. Return instructions reviewed. She was told that she may need repeat x-rays versus other imaging as an outpatient. Disposition is discharged home in stable condition. History & Record Review Discussion w/independent historian: Patient Discharge Plan Triage Chief Complaint: Upper Extremity Injury ED Provider: Jigar Gutierrez Dx/Rx/DC Orders Clinical Impression: Contusion of left hand, Contusion of finger of left hand Instructions: ED Hand Contusion, ED Finger Contusion Prescriptions: No Action sumatriptan succinate 50 mg tablet 50 mg PO PRN topiramate 200 MG tablet 200 mg PO BREAKFAST Patient Comments: 200 mg in am and 400 mg in PM lacosamide [Vimpat] 200 MG tablet 200 mg PO BID levetiracetam 500 mg tablet 500 mg PO Q12H Patient Comments: take 1 tablet by mouth every morning and 1 tablet by mouth before BEDTIME oxybutynin chloride 10 mg tablet extended release 24hr 10 mg PO DAILY Primary Care Provider: Shalini Varner Referrals: Shalini Varner DO [Primary Care Provider, Family Practice] - 1 Week if not improving Liban Schreiber MD [Med Staff - Active Staff, Plastic Surgery] - 1 Week if not improving Activity Restrictions/Additional Instructions: [id number] medications as needed for pain. Wear wrist splint as needed for up to a week. Exercise your hand and fingers a few times a day. You may remove it for bathing or sleeping. Print Language: Greek Disposition Disposition: Home, Self Care
[2025-06-09 21:40] VITALS: BP 104/69; PULSE 55; RESP 15; TEMP 36.6; O2SAT 100
== END 2025-06-09 21:41 | disposition home or self-care (01) ==
PROVIDERS: Emergency Provider Emergency Medicine; Visit Provider Emergency Medicine
DX: S60.00XA Contusion of unspecified finger without damage to nail, initial encounter (principal); F17.210 Nicotine dependence, cigarettes, uncomplicated; S60.222A Contusion of left hand, initial encounter; Z90.710 Acquired absence of both cervix and uterus; Z90.49 Acquired absence of other specified parts of digestive tract; W21.09XA Struck by other hit or thrown ball, initial encounter; Y93.6A Activity, physical games generally associated with school recess, summer camp and children
CPT/HCPCS: 73110; 73130; 99283